=== PATIENT | female | born 1960 | race Caucasian/White ===

== ENCOUNTER → 2016-06-16 | Outpatient (CLI) | payer BC ==
[2016-06-16 15:05] LABS: CHLORIDE,CL 101 mmol/L (98-110); SODIUM,NA 140 mmol/L (136-146)
--- NOTE | 2016-06-16 16:05 | MY ---
EXAMINATION: Bilateral digital mammography utilizing CAD. HISTORY: Screening exam. Comparison is made to previous studies dated 04/12/2015, 11/17/2013, 2012 . FINDINGS: Bilateral heterogeneously dense breast tissue. Stable calcifications noted bilaterally. No suspicious calcifications, masses or architectural distortions. No pathologic appearing lymph no mg, no abnormal skin thickening or nipple inversion. CAD highlighted regions appear normal at this time. IMPRESSION: BI-RADS category II - Benign finding. Continued screening according to ACR-ACS guidelin es suggested. THE FALSE-NEGATIVE RATE OF MAMMOGRAM IS APPROXIMATELY 10%. MANAGEMENT OF A PALPABLE ABNORMALITY MUST BE BASED UPON CLINICAL GROUNDS. SENSITIVITY FOR DETECTION OF ABNORMALITIES IN DENSE BREASTS IS LOW. NOTE: A letter will be sent to the patient regarding findings. [facility] -- MARYSOL Lafleur [phone] - FAX [phone]
== END ==
LOC: MW.MAM 14:02
PROVIDERS: ATTEND Physician Assistant
DX: Z12.31 Encounter for screening mammogram for malignant neoplasm of breast (principal); Z13.220 Encounter for screening for lipoid disorders; E03.9 Hypothyroidism, unspecified; Z79.899 Other long term (current) drug therapy
CPT/HCPCS: 80053; 80061; 84439; 84443; G0202

== ENCOUNTER 2018-04-01 10:13 | Inpatient (IN) | payer BC, MEDICARE ==
--- NOTE | 2018-04-01 10:52 | EDM.PDOC ---
ED HPI GENERAL MEDICAL PROBLEM - General Chief Complaint: Respiratory Problem Stated Complaint: TROUBLE BREATHING Time Seen by Provider: 04/01/18 10:39 Source of Information: Reports: Patient History Limitations: Reports: No Limitations - History of Present Illness INITIAL COMMENTS - FREE TEXT/NARRATIVE: HISTORY AND PHYSICAL: History of present illness: Patient is a 57-year-old female who presents to the emergency room with complaints of chest pain, cough and shortness of breath 8 days. Patient does have a history of COPD and is concerned that she may have a pneumonia. Patient does have increased shortness of breath, more than her usual with her underlying lung disease. Describes the chest pain as a generalized tightness across her chest when asked to take in a deep breath. She denies any fever, chills, abdominal pain, nausea, vomiting, diarrhea or constipation. She has been eating and drinking appropriately. Patient was a previous tobacco user, smoked for 43 years. Review of systems: As per history of present illness and below otherwise all systems reviewed and negative. Past medical history: As per history of present illness and as reviewed below otherwise noncontributory. Surgical history: As per history of present illness and as reviewed below otherwise noncontributory. Social history: See social history for further information Family history: As per history of present illness and as reviewed below otherwise noncontributory. Physical exam: General: Well-developed and well-nourished 57-year-old female. Alert and oriented. Nontoxic appearing and in no acute distress. HEENT: Atraumatic, normocephalic, pupils equal and reactive bilaterally, negative for conjunctival pallor or scleral icterus, mucous membranes moist, TMs normal bilaterally, throat clear, neck supple, nontender, trachea midline. No drooling or trismus noted. No meningeal signs. No hot potato voice noted. Lungs: Fine expiratory wheezing noted throughout, rhonchi noted, chest nontender. Heart: S1S2, regular rate and rhythm without overt murmur Abdomen: Soft, nondistended, nontender. Negative for masses or hepatosplenomegaly. Negative for costovertebral tenderness. Pelvis: Stable nontender. Genitourinary: Deferred. Rectal: Deferred. Skin: Intact, warm, dry. No lesions or rashes noted. Extremities: Atraumatic, moves all extremities per self, trace edema to bilaterally lower extremities, negative for cords or calf pain. Neurovascular unremarkable. Neuro: Awake, alert, oriented. Cranial nerves II through XII unremarkable. Cerebellum unremarkable. Motor and sensory unremarkable throughout. Exam nonfocal. Notes: Patient is not routinely on oxygen at home. Today's oxygen saturation during triage was 81-83% on room air. She bumped to 92% on 4 L per nasal cannula. Lab work is unremarkable. Due to the patient's continuous tachycardia and shortness of breath I'm going to do a CT of her chest to rule out PE. Dr. Fan was consulted on this case and he is agreeable to keeping this patient for observation admission. Patient is aware and agreeable. Her saturation is 91% on 3 L per nasal cannula. Other vital signs are stable. CT of the chest shows scattered reticular nodule opacities within the lungs bilaterally, etiology is uncertain, this could represent a developing atypical infectious process. Neoplastic process is not excluded and short-term follow-up after treatment may be beneficial. No PE identified. Mild pulmonary emphysema noted. Diagnostics: CBC, CMP, troponin, BNP, EKG, chest x-ray Therapeutics: Solu-Medrol, Tor Jewell Impression: Hypoxia COPD exacerbation Plan: Observation Admission to Med/Surg per Mita Definitive disposition and diagnosis as appropriate pending reevaluation and review of above. 0 Pain Score (Numeric/FACES): 0 - Related Data Allergies Allergy/AdvReac Type Severity Reaction Status Date / Time Sulfa (Sulfonamide Allergy Rash Verified 04/01/18 10:45 Antibiotics) Home Meds: Home Meds Calcium Carbonate [Calcium] 1 tab PO BID 04/01/18 [History] Divalproex Sodium [Depakote] 500 mg PO TID 04/01/18 [History] Escitalopram [Lexapro] 20 mg PO DAILY 04/01/18 [History] Fluticasone Furoate [Arnuity Ellipta] 1 puff INH DAILY 04/01/18 [History] Levothyroxine Sodium [Levoxyl] 75 mcg PO ACBREAKFAST 04/01/18 [History] Multivitamins [Tab-A-Macho] 1 tab PO DAILY 04/01/18 [History] Umeclidinium Brm/Vilanterol Tr [Anoro Ellipta 62.5-25 MCG] 1 puff INH DAILY [History] ED ROS GENERAL - Review of Systems Review Of Systems: ROS reveals no pertinent complaints other than HPI. ED EXAM, GENERAL - Physical Exam Exam: See Below (See dictation) Course - Vital Signs Last Recorded V/S: Last Vital Signs Temp 97.9 F 04/03/18 12:00 Pulse 88 04/03/18 12:00 Resp 20 04/03/18 12:00 BP 112/69 04/03/18 12:00 Pulse Ox 91 L 04/03/18 12:00 - Orders/Labs/Meds Orders: Medication Orders Acetaminophen (Tylenol) 650 mg PO Q4H PRN PRN Reason: Pain (Mild 1-3)/fever Last Admin: 04/03/18 02:10 Dose: 650 mg Albuterol/Ipratropium (Duoneb 3.0-0.5 Mg/3 Ml) 3 ml NEB Q4HRRT [facility] Last Admin: 04/03/18 13:57 Dose: 3 ml Admin: 04/03/18 10:00 Dose: 3 ml Admin: 04/03/18 05:53 Dose: Not Given Admin: 04/03/18 02:06 Dose: 3 ml Admin: 04/02/18 21:29 Dose: 3 ml Admin: 04/02/18 17:36 Dose: 3 ml Admin: 04/02/18 14:39 Dose: 3 ml Admin: 04/02/18 09:52 Dose: 3 ml Admin: 04/02/18 06:06 Dose: 3 ml Admin: 04/02/18 02:20 Dose: 3 ml Admin: 04/01/18 22:03 Dose: 3 ml Admin: 04/01/18 18:11 Dose: 3 ml Admin: 04/01/18 14:21 Dose: 3 ml Divalproex Sodium (Depakote) 500 mg PO 0800,1400,2200 [facility] Last Admin: 04/03/18 09:11 Dose: Admin: 04/02/18 22:40 Dose: 500 mg Admin: 04/02/18 14:21 Dose: 500 mg Admin: 04/02/18 08:18 Dose: 500 mg Enoxaparin Sodium (Lovenox) 40 mg SUBCUT Q24H [facility] Last Admin: 04/02/18 18:07 Dose: Not Given Admin: 04/01/18 16:40 Dose: Not Given Escitalopram Oxalate (Lexapro) 20 mg PO DAILY [facility] Last Admin: 04/03/18 09:10 Dose: 20 mg Admin: 04/02/18 08:16 Dose: 20 mg Azithromycin 500 mg/ Sodium (Chloride) 250 mls @ 250 mls/hr IV Q24H [facility] Last Admin: 04/02/18 16:56 Dose: 250 mls/hr Infusion: 04/01/18 17:36 Dose: 250 mls/hr Admin: 04/01/18 16:36 Dose: 250 mls/hr Ceftriaxone Sodium/Dextrose 1 (gm/ Premix) 50 mls @ 100 mls/hr IV Q24H [facility] Last Admin: 04/02/18 18:21 Dose: 100 mls/hr Levothyroxine Sodium (Levothyroxine) 75 mcg PO ACBREAKFAST [facility] Last Admin: 04/03/18 06:35 Dose: 75 mcg Admin: 04/02/18 08:15 Dose: 75 mcg Methylprednisolone Sodium Succinate (Solu-Medrol) 125 mg IVPUSH Q6H [facility] Last Admin: 04/03/18 12:55 Dose: 125 mg Admin: 04/03/18 06:36 Dose: 125 mg Admin: 04/02/18 22:41 Dose: 125 mg Admin: 04/02/18 16:56 Dose: 125 mg Admin: 04/02/18 11:15 Dose: 125 mg Admin: 04/02/18 05:55 Dose: 125 mg Admin: 04/01/18 23:30 Dose: 125 mg Admin: 04/01/18 18:47 Dose: 125 mg Ondansetron HCl (Zofran) 4 mg IVPUSH Q4H PRN PRN Reason: Nausea/Vomiting Fluticasone Furoate [Arnuity Ellipta] 1 Puff 1 each INH DAILY [facility] Last Admin: 04/03/18 10:00 Dose: 1 each Admin: 04/02/18 09:53 Dose: 1 each Umeclidinium Brm/ (Vilanterol Tr 1 Puff) 1 each INH DAILY [facility] Last Admin: 04/03/18 10:00 Dose: 1 each Admin: 04/02/18 09:53 Dose: 1 each Polyethylene Glycol (Miralax) 17 gm PO DAILY [facility] Last Admin: 04/03/18 09:16 Dose: Not Given Admin: 04/02/18 11:15 Dose: 17 gm Sodium Chloride (Saline Flush) 10 ml FLUSH ASDIRECTED PRN PRN Reason: Keep Vein Open Last Admin: 04/01/18 11:14 Dose: 10 ml Sodium Chloride (Saline Flush) 2.5 ml FLUSH ASDIRECTED PRN PRN Reason: Keep Vein Open Last Admin: 04/01/18 11:13 Dose: 2.5 ml Sodium Chloride (Saline Flush) 10 ml FLUSH ASDIRECTED PRN PRN Reason: Keep Vein Open Sodium Chloride (Saline Flush) 2.5 ml FLUSH ASDIRECTED PRN PRN Reason: Keep Vein Open Labs: Laboratory Tests 04/01/18 04/01/18 04/01/18 Range/Units 11:06 11:06 11:06 WBC 8.05 (4.0-11.0) K/uL RBC 5.08 (4.30-5.90) M/uL Hgb 16.8 H (12.0-16.0) g/dL Hct 50.1 H (36.0-46.0) % MCV 98.6 H (80.0-98.0) fL MCH 33.1 H (27.0-32.0) pg MCHC 33.5 (31.0-37.0) g/dL RDW Std Deviation 48.8 (28.0-62.0) fl RDW Coeff of Drew 14 (11.0-15.0) % Plt Count 71 L (150-400) K/uL MPV 10.90 (7.40-12.00) fL Add Manual Diff YES Neutrophils % (Manual) 54 (48.0-80.0) % Band Neutrophils % 26 % Lymphocytes % (Manual) 14 L (16.0-40.0) % Monocytes % (Manual) 6 (0.0-15.0) % Nucleated RBC % 0.0 /100WBC Absolute Seg Neuts 4.3 (1.4-5.7) Band Neutrophils # 2.1 Lymphocytes # (Manual) 1.1 (0.6-2.4) Monocytes # (Manual) 0.5 (0.0-0.8) Nucleated RBCs # 0 K/uL D-Dimer, Quantitative (0.0-0.50) mg/L FEU Sodium 133 L (136-145) mmol/L Potassium 3.6 (3.5-5.1) mmol/L Chloride 96 L (98-107) mmol/L Carbon Dioxide 30.8 (21.0-32.0) mmol/L BUN 17 (7.0-18.0) mg/dL Creatinine 0.9 (0.6-1.0) mg/dL Est Cr Clr Drug Dosing 64.56 mL/min Estimated GFR (MDRD) > 60.0 ml/min Glucose 112 H (74-106) mg/dL Calcium 9.1 (8.5-10.1) mg/dL Total Bilirubin 0.6 (0.2-1.0) mg/dL AST 29 (15-37) IU/L ALT 16 (14-63) IU/L Alkaline Phosphatase 56 (46-116) U/L Troponin I (0.000-0.056) ng/mL B-Natriuretic Peptide 20 (<100) PG/ML Total Protein 6.7 (6.4-8.2) g/dL Albumin 3.0 L (3.4-5.0) g/dL Globulin 3.7 (2.6-4.0) g/dL Albumin/Globulin Ratio 0.8 L (0.9-1.6) 04/01/18 04/01/18 Range/Units 11:06 11:06 WBC (4.0-11.0) K/uL RBC (4.30-5.90) M/uL Hgb (12.0-16.0) g/dL Hct (36.0-46.0) % MCV (80.0-98.0) fL MCH (27.0-32.0) pg MCHC (31.0-37.0) g/dL RDW Std Deviation (28.0-62.0) fl RDW Coeff of Drew (11.0-15.0) % Plt Count (150-400) K/uL MPV (7.40-12.00) fL Add Manual Diff Neutrophils % (Manual) (48.0-80.0) % Band Neutrophils % % Lymphocytes % (Manual) (16.0-40.0) % Monocytes % (Manual) (0.0-15.0) % Nucleated RBC % /100WBC Absolute Seg Neuts (1.4-5.7) Band Neutrophils # Lymphocytes # (Manual) (0.6-2.4) Monocytes # (Manual) (0.0-0.8) Nucleated RBCs # K/uL D-Dimer, Quantitative 0.42 (0.0-0.50) mg/L FEU Sodium (136-145) mmol/L Potassium (3.5-5.1) mmol/L Chloride (98-107) mmol/L Carbon Dioxide (21.0-32.0) mmol/L BUN (7.0-18.0) mg/dL Creatinine (0.6-1.0) mg/dL Est Cr Clr Drug Dosing mL/min Estimated GFR (MDRD) ml/min Glucose (74-106) mg/dL Calcium (8.5-10.1) mg/dL Total Bilirubin (0.2-1.0) mg/dL AST (15-37) IU/L ALT (14-63) IU/L Alkaline Phosphatase (46-116) U/L Troponin I < 0.050 (0.000-0.056) ng/mL B-Natriuretic Peptide (<100) PG/ML Total Protein (6.4-8.2) g/dL Albumin (3.4-5.0) g/dL Globulin (2.6-4.0) g/dL Albumin/Globulin Ratio (0.9-1.6) Meds: Medications Generic Name Dose Route Start Last Admin Trade Name Freq PRN Reason Stop Dose Admin Acetaminophen 650 mg 04/01/18 12:54 04/03/18 02:10 Tylenol PO 650 mg Q4H PRN Administration Pain (Mild 1-3)/fever Albuterol/Ipratropium 3 ml 04/01/18 14:00 04/03/18 13:57 Duoneb 3.0-0.5 Mg/3 Ml NEB 3 ml Q4HRRT RADHA Administration Divalproex Sodium 500 mg 04/02/18 08:00 04/03/18 09:11 Depakote PO Not Given 0800,1400,2200 RAD[facility] Enoxaparin Sodium 40 mg 04/01/18 16:30 04/02/18 18:07 Lovenox SUBCUT Not Given Q24H [facility] Escitalopram Oxalate 20 mg 04/02/18 09:00 04/03/18 09:10 Lexapro PO 20 mg DAILY RAD[facility] Administration Azithromycin 500 mg/ Sodium 250 mls @ 250 mls/hr 04/01/18 16:30 04/02/18 16: 56 Chloride IV 250 mls/hr Q24H [facility] Administration Ceftriaxone Sodium/Dextrose 1 50 mls @ 100 mls/hr 04/02/18 18:30 04/02/18 18: 21 gm/ Premix IV 100 mls/hr Q24H [facility] Administration Levothyroxine Sodium 75 mcg 04/02/18 08:00 04/03/18 06:35 Levothyroxine PO 75 mcg ACBREAKFAST [facility] Administration Methylprednisolone Sodium Succinate 125 mg 04/01/18 17:30 04/03/18 12:55 Solu-Medrol IVPUSH 125 mg Q6H [facility] Administration Ondansetron HCl 4 mg 04/01/18 12:54 Zofran IVPUSH Q4H PRN Nausea/Vomiting Fluticasone Furoate 1 each 04/02/18 09:00 04/03/18 10:00 [Arnuity Ellipta] 1 INH 1 each Puff DAILY [facility] Administration Umeclidinium Brm/ 1 each 04/02/18 09:00 04/03/18 10:00 Vilanterol Tr 1 Puff INH 1 each DAILY [facility] Administration Polyethylene Glycol 17 gm 04/02/18 11:15 04/03/18 09:16 Miralax PO Not Given DAILY [facility] Sodium Chloride 10 ml 04/01/18 10:57 04/01/18 11:14 Saline Flush FLUSH 10 ml ASDIRECTED PRN Administration Keep Vein Open Sodium Chloride 2.5 ml 04/01/18 10:57 04/01/18 11:13 Saline Flush FLUSH 2.5 ml ASDIRECTED PRN Administration Keep Vein Open Sodium Chloride 10 ml 04/01/18 12:54 Saline Flush FLUSH ASDIRECTED PRN Keep Vein Open Sodium Chloride 2.5 ml 04/01/18 12:54 Saline Flush FLUSH ASDIRECTED PRN Keep Vein Open Discontinued Medications Generic Name Dose Route Start Last Admin Trade Name Freq PRN Reason Stop Dose Admin Albuterol/Ipratropium 3 ml 04/01/18 10:53 04/01/18 11:13 Duoneb 3.0-0.5 Mg/3 Ml NEB 04/01/18 10:54 3 ml ONETIME ONE Administration Albuterol/Ipratropium 3 ml 04/01/18 11:23 04/01/18 11:29 Duoneb 3.0-0.5 Mg/3 Ml NEB 04/01/18 11:24 3 ml ONETIME ONE Administration Aspirin 324 mg 04/01/18 11:21 04/01/18 11:53 Aspirin PO 04/01/18 11:22 324 mg ONETIME ONE Administration Divalproex Sodium 250 mg 04/01/18 14:00 04/01/18 16:35 Divalproex Sodium PO Not Given TID RADHA Divalproex Sodium 500 mg 04/01/18 16:30 04/01/18 16:50 Depakote PO 04/01/18 16:31 Not Given 04/01/18@1630 RAD[facility] Divalproex Sodium 500 mg 04/01/18 16:45 04/01/18 16:51 Depakote PO 04/01/18 16:46 500 mg ONETIME ONE Administration Divalproex Sodium Confirm 04/01/18 22:10 04/01/18 22:25 Depakote Er Administered 04/01/18 22:11 Not Given Dose 500 mg .ROUTE .STK-MED ONE Enoxaparin Sodium 40 mg 04/01/18 13:00 04/01/18 16:34 Lovenox SUBCUT Not Given Q24H [facility] Azithromycin 500 mg/ Sodium 250 mls @ 250 mls/hr 04/01/18 13:00 04/01/18 16: 34 Chloride IV Not Given Q24H [facility] Azithromycin 500 mg/ Sodium 250 mls @ 250 mls/hr 04/01/18 16:30 Chloride IV Q24H [facility] Ceftriaxone Sodium 1 gm/ 50 mls @ 100 mls/hr 04/01/18 18:30 04/01/18 19:03 Sodium Chloride IV 100 mls/hr Q24H [facility] Administration Ceftriaxone Sodium/Dextrose Confirm 04/01/18 18:47 04/01/18 19:35 Rocephin In Dextrose,Iso-Osm 1 Gm/50 Ml Administered 04/01/18 18:48 Not Given Dose 50 mls @ as directed .ROUTE .STK-MED ONE Iopamidol 50 ml 04/01/18 13:22 04/01/18 13:23 Isovue Multipack-370 (76%) IVPUSH 04/01/18 13:23 50 ml ONETIME STA Administration Methylprednisolone Sodium Succinate 125 mg 04/01/18 10:57 04/01/18 11:13 Solu-Medrol IVPUSH 04/01/18 10:58 125 mg ONETIME ONE Administration Methylprednisolone Sodium Succinate 125 mg 04/01/18 13:00 04/01/18 15:44 Solu-Medrol IVPUSH Not Given Q6H [facility] Morphine Sulfate 2 mg 04/01/18 12:54 Morphine IVPUSH 04/02/18 12:55 Q2H PRN Pain (severe 7-10) Morphine Sulfate 2 mg 04/02/18 07:22 Morphine IVPUSH 04/02/18 12:55 Q2H PRN Pain (severe 7-10) Levothyroxine 75 Mcg 1 each 04/02/18 07:30 04/02/18 09:25 PO Not Given ACBREAKFAST [facility] Divalproex Sodium 1 each 04/01/18 22:00 04/01/18 22:23 Delayed-Release 500 PO 1 each Mg Tab.Cr 0800,1400,2200 RAD[facility] Administration Departure - Departure Time of Disposition: 14:18 Disposition: Refer to Observation Clinical Impression: Hypoxia, COPD exacerbation - Discharge Information
[2018-04-01] MEDS ORDERED: Albuterol/Ipratropium 3.0-0.5 MG/3 ML Neb Soln NEB ONE ×2 (10:53→11:23)
[2018-04-01] MEDS ORDERED: Sodium Chloride 0.9% 10 ML Syringe FLUSH PRN ×2 (10:57→12:54)
[2018-04-01] MEDS ORDERED: Sodium Chloride 0.9% 2.5 ML Syringe FLUSH PRN ×2 (10:57→12:54)
[2018-04-01] MEDS ORDERED: methylPREDNISolone Sodium Succinate 125 MG/2 ML SDV IVPUSH ONE (10:57)
[2018-04-01] MEDS ORDERED: Aspirin 81 MG Tab.Chew PO ONE (11:21)
[2018-04-01 11:53] LABS: CHLORIDE,CL 96 mmol/L (98-107); SODIUM,NA 133 mmol/L (136-145)
--- NOTE | 2018-04-01 12:08 | CR ---
EXAMINATION: Portable chest radiograph. HISTORY: Shortness of breath. Comparison: 12/17/2017. FINDINGS: The trachea is midline. The cardiomediastinal silhouette is within normal limits. No pulmonary infiltrates, effusions or pneumothorax. Mild interstitial prominence. Osseous structures appear unremarkable. IMPRESSION: No acute cardiopulmonary process.
[2018-04-01] MEDS ORDERED: Ondansetron 4 MG/2 ML SDV IVPUSH PRN (12:54)
[2018-04-01] MEDS ORDERED: Morphine 10 MG/ML Syringe IVPUSH PRN (12:54)
[2018-04-01] MEDS ORDERED: Azithromycin 500 MG in Sodium Chloride 0.9% 250 ML IV SCH ×2 (13:00→16:30)
[2018-04-01] MEDS ORDERED: Enoxaparin 40 MG/0.4 ML Syringe SUBCUT SCH (13:00)
[2018-04-01] MEDS ORDERED: methylPREDNISolone Sodium Succinate 125 MG/2 ML SDV IVPUSH SCH (13:00)
--- NOTE | 2018-04-01 13:04 | PCM.HP ---
H&P History of Present Illness - General Date of Service: 04/01/18 Admit Problem/Dx: Admission Diagnosis/Problem Admission Diagnosis/Problem Hypoxia - History of Present Illness Initial Comments - Free Text/Narative: This is a 57-year-old female with a known history of COPD that is being admitted for an acute exacerbation of her COPD. Patient states that she has been feeling unwell for the past 10 days and progressively having increased shortness of breath cough and hypoxia. Patient is a smoker who is currently not on any home O2, despite her long acting inhalers the patient did not get better and came into the ER for further assessment. ER was concern for possible pulmonary embolism due to her hypoxia and has gotten a CT angiogram results are pending. - Related Data Allergies/Adverse Reactions: Allergies Allergy/AdvReac Type Severity Reaction Status Date / Time Sulfa (Sulfonamide Allergy Rash Verified 04/01/18 10:45 Antibiotics) Home Medications: Home Meds Calcium Carbonate [Calcium] 1 tab PO BID 04/01/18 [History] Divalproex Sodium [Depakote] 500 mg PO TID 04/01/18 [History] Escitalopram [Lexapro] 20 mg PO DAILY 04/01/18 [History] Fluticasone Furoate [Arnuity Ellipta] 1 puff INH DAILY 04/01/18 [History] Levothyroxine Sodium [Levoxyl] 75 mcg PO ACBREAKFAST 04/01/18 [History] Multivitamins [Tab-A-Macho] 1 tab PO DAILY 04/01/18 [History] Umeclidinium Brm/Vilanterol Tr [Anoro Ellipta 62.5-25 MCG] 1 puff INH DAILY [History] Past Medical History HEENT History: Reports: None Cardiovascular History: Reports: None Respiratory History: Reports: COPD Gastrointestinal History: Reports: None Genitourinary History: Reports: None SEE WHEELER History: Reports: None Musculoskeletal History: Reports: Fracture Other Musculoskeletal History: ribs Neurological History: Reports: Seizure Psychiatric History: Reports: None Endocrine/Metabolic History: Reports: None Hematologic History: Reports: None Immunologic History: Reports: None Oncologic (Cancer) History: Reports: None Dermatologic History: Reports: None - Infectious Disease History Infectious Disease History: Reports: None - Past Surgical History Head Surgeries/Procedures: Reports: None Social & Family History - Family History Family Medical History: Noncontributory - Tobacco Use Smoking Status *Q: Former Smoker Years of Tobacco use: 43 Packs/Tins Daily: 2 Used Tobacco, but Quit: Yes Month/Year Tobacco Last Used: 5 days ago - Caffeine Use Caffeine Use: Reports: Coffee - Recreational Drug Use Recreational Drug Use: No H&P Review of Systems - Review of Systems: Review Of Systems: ROS reveals no pertinent complaints other than HPI. Exam - Exam Exam: See Below - Vital Signs Vital Signs: Last Vital Signs Temp 37.1 C 04/01/18 10:48 Pulse 120 H 04/01/18 11:54 Resp 20 04/01/18 11:54 BP 123/77 04/01/18 11:54 Pulse Ox 94 L 04/01/18 11:54 Weight: 61.235 kg - Exam Quality Assessment: Supplemental Oxygen General: Alert, Oriented, Cooperative HEENT: Conjunctiva Clear Neck: Supple Lungs: Decreased Breath Sounds Cardiovascular: Regular Rate, Regular Rhythm GI/Abdominal Exam: Normal Bowel Sounds Extremities: Normal Inspection, Normal Range of Motion - Patient Data Lab Results Last 24 hrs: Laboratory Results - last 24 hr 04/01/18 04/01/18 04/01/18 Range/Units 11:06 11:06 11:06 WBC 8.05 (4.0-11.0) K/uL RBC 5.08 (4.30-5.90) M/uL Hgb 16.8 H (12.0-16.0) g/dL Hct 50.1 H (36.0-46.0) % MCV 98.6 H (80.0-98.0) fL MCH 33.1 H (27.0-32.0) pg MCHC 33.5 (31.0-37.0) g/dL RDW Std Deviation 48.8 (28.0-62.0) fl RDW Coeff of Drew 14 (11.0-15.0) % Plt Count 71 L (150-400) K/uL MPV 10.90 (7.40-12.00) fL Add Manual Diff YES Neutrophils % (Manual) 54 (48.0-80.0) % Band Neutrophils % 26 % Lymphocytes % (Manual) 14 L (16.0-40.0) % Monocytes % (Manual) 6 (0.0-15.0) % Nucleated RBC % 0.0 /100WBC Absolute Seg Neuts 4.3 (1.4-5.7) Band Neutrophils # 2.1 Lymphocytes # (Manual) 1.1 (0.6-2.4) Monocytes # (Manual) 0.5 (0.0-0.8) Nucleated RBCs # 0 K/uL D-Dimer, Quantitative (0.0-0.50) mg/L FEU Sodium 133 L (136-145) mmol/L Potassium 3.6 (3.5-5.1) mmol/L Chloride 96 L (98-107) mmol/L Carbon Dioxide 30.8 (21.0-32.0) mmol/L BUN 17 (7.0-18.0) mg/dL Creatinine 0.9 (0.6-1.0) mg/dL Est Cr Clr Drug Dosing 64.56 mL/min Estimated GFR (MDRD) > 60.0 ml/min Glucose 112 H (74-106) mg/dL Calcium 9.1 (8.5-10.1) mg/dL Total Bilirubin 0.6 (0.2-1.0) mg/dL AST 29 (15-37) IU/L ALT 16 (14-63) IU/L Alkaline Phosphatase 56 (46-116) U/L Troponin I (0.000-0.056) ng/mL B-Natriuretic Peptide 20 (<100) PG/ML Total Protein 6.7 (6.4-8.2) g/dL Albumin 3.0 L (3.4-5.0) g/dL Globulin 3.7 (2.6-4.0) g/dL Albumin/Globulin Ratio 0.8 L (0.9-1.6) 04/01/18 04/01/18 Range/Units 11:06 11:06 WBC (4.0-11.0) K/uL RBC (4.30-5.90) M/uL Hgb (12.0-16.0) g/dL Hct (36.0-46.0) % MCV (80.0-98.0) fL MCH (27.0-32.0) pg MCHC (31.0-37.0) g/dL RDW Std Deviation (28.0-62.0) fl RDW Coeff of Drew (11.0-15.0) % Plt Count (150-400) K/uL MPV (7.40-12.00) fL Add Manual Diff Neutrophils % (Manual) (48.0-80.0) % Band Neutrophils % % Lymphocytes % (Manual) (16.0-40.0) % Monocytes % (Manual) (0.0-15.0) % Nucleated RBC % /100WBC Absolute Seg Neuts (1.4-5.7) Band Neutrophils # Lymphocytes # (Manual) (0.6-2.4) Monocytes # (Manual) (0.0-0.8) Nucleated RBCs # K/uL D-Dimer, Quantitative 0.42 (0.0-0.50) mg/L FEU Sodium (136-145) mmol/L Potassium (3.5-5.1) mmol/L Chloride (98-107) mmol/L Carbon Dioxide (21.0-32.0) mmol/L BUN (7.0-18.0) mg/dL Creatinine (0.6-1.0) mg/dL Est Cr Clr Drug Dosing mL/min Estimated GFR (MDRD) ml/min Glucose (74-106) mg/dL Calcium (8.5-10.1) mg/dL Total Bilirubin (0.2-1.0) mg/dL AST (15-37) IU/L ALT (14-63) IU/L Alkaline Phosphatase (46-116) U/L Troponin I < 0.050 (0.000-0.056) ng/mL B-Natriuretic Peptide (<100) PG/ML Total Protein (6.4-8.2) g/dL Albumin (3.4-5.0) g/dL Globulin (2.6-4.0) g/dL Albumin/Globulin Ratio (0.9-1.6) Result Diagrams: 04/01/18 11:06 04/01/18 11:06 Problem List Initiated/Reviewed/Updated: Yes Orders Last 24hrs: Active Orders 24 hr Category Date Time Status Admission Status [Patient Status] [ADT] Stat ADT 04/01/18 12:14 Active Antiembolic Devices [RC] PER UNIT ROUTINE Care 04/01/18 12:58 Ordered EKG Documentation Completion [RC] STAT Care 04/01/18 10:53 Active Height and Weight [RC] UPON Care 04/01/18 12:54 Ordered Intake and Output [RC] QSHIFT Care 04/01/18 12:55 Ordered Oxygen Therapy [RC] PRN Care 04/01/18 12:55 Ordered Pulse Oximetry [RC] PRN Care 04/01/18 12:55 Ordered RT Aerosol Therapy [RC] ASDIRECTED Care 04/01/18 10:53 Active RT Aerosol Therapy [RC] ASDIRECTED Care 04/01/18 11:23 Active RT Aerosol Therapy [RC] ASDIRECTED Care 04/01/18 12:58 Ordered Up With Assistance [RC] ASDIRECTED Care 04/01/18 12:54 Ordered VTE/DVT Education [RC] PER UNIT ROUTINE Care 04/01/18 12:55 Ordered Vital Signs [RC] Q4H Care 04/01/18 12:55 Ordered Respiratory Care Assess and Treatment [CONS] Routine Cons 04/01/18 12:54 Ordered Heart Healthy Diet [DIET] Diet 04/01/18 Breakfast Ordered Chest PE [Ang Chest] [CT] Stat Exams 04/01/18 12:25 Ordered CBC WITH AUTO DIFF [HEME] AM Lab 04/02/18 05:11 Ordered COMPREHENSIVE METABOLIC PN,CMP [CHEM] AM Lab 04/02/18 05:11 Ordered CULTURE SPUTUM + SMEAR [RM] Stat Lab 04/01/18 13:00 Ordered Acetaminophen [Tylenol] Med 04/01/18 12:54 Ordered 650 mg PO Q4H PRN Albuterol/Ipratropium [DuoNeb 3.0-0.5 MG/3 ML] Med 04/01/18 14:00 Ordered 3 ml NEB Q4HRRT Azithromycin [Zithromax] 500 mg Med 04/01/18 13:00 Ordered Sodium Chloride 0.9% [Normal Saline] 250 ml IV Q24H Divalproex Sodium Med 04/01/18 14:00 Ordered 250 mg PO TID Enoxaparin [Lovenox] Med 04/01/18 13:00 Ordered 40 mg SUBCUT Q24H Levothyroxine Med 04/02/18 09:00 Ordered 125 mcg PO DAILY Morphine Med 04/01/18 12:54 Ordered 2 mg IVPUSH Q2H PRN Ondansetron [Zofran] Med 04/01/18 12:54 Ordered 4 mg IVPUSH Q4H PRN Sodium Chloride 0.9% [Saline Flush] Med 04/01/18 10:57 Active 10 ml FLUSH ASDIRECTED PRN Sodium Chloride 0.9% [Saline Flush] Med 04/01/18 12:54 Ordered 10 ml FLUSH ASDIRECTED PRN Sodium Chloride 0.9% [Saline Flush] Med 04/01/18 10:57 Active 2.5 ml FLUSH ASDIRECTED PRN Sodium Chloride 0.9% [Saline Flush] Med 04/01/18 12:54 Ordered 2.5 ml FLUSH ASDIRECTED PRN methylPREDNISolone Sod Succ [Solu-MEDROL] Med 04/01/18 13:00 Ordered 125 mg IVPUSH Q6H Peripheral IV Insertion Adult [OM.PC] Routine Oth 04/01/18 12:54 Ordered Saline Lock Insert [OM.PC] Routine Oth 04/01/18 12:54 Ordered Saline Lock Insert [OM.PC] Stat Ot 04/01/18 10:57 Ordered Sequential Compression Device [OM.PC] Per Unit Routine Ot 04/01/18 12:55 Ordered Medication Orders Acetaminophen (Tylenol) 650 mg PO Q4H PRN PRN Reason: Pain (Mild 1-3)/fever Albuterol/Ipratropium (Duoneb 3.0-0.5 Mg/3 Ml) 3 ml NEB Q4HRRT [facility] Divalproex Sodium (Divalproex Sodium) 250 mg PO TID [facility] Enoxaparin Sodium (Lovenox) 40 mg SUBCUT Q24H [facility] Azithromycin 500 mg/ Sodium (Chloride) 250 mls @ 250 mls/hr IV Q24H [facility] Levothyroxine Sodium (Levothyroxine) 125 mcg PO DAILY [facility] Methylprednisolone Sodium Succinate (Solu-Medrol) 125 mg IVPUSH Q6H [facility] Morphine Sulfate (Morphine) 2 mg IVPUSH Q2H PRN PRN Reason: Pain (severe 7-10) Stop: 04/02/18 12:55 Ondansetron HCl (Zofran) 4 mg IVPUSH Q4H PRN PRN Reason: Nausea/Vomiting Sodium Chloride (Saline Flush) 10 ml FLUSH ASDIRECTED PRN PRN Reason: Keep Vein Open Last Admin: 04/01/18 11:14 Dose: 10 ml Sodium Chloride (Saline Flush) 2.5 ml FLUSH ASDIRECTED PRN PRN Reason: Keep Vein Open Last Admin: 04/01/18 11:13 Dose: 2.5 ml Sodium Chloride (Saline Flush) 10 ml FLUSH ASDIRECTED PRN PRN Reason: Keep Vein Open Sodium Chloride (Saline Flush) 2.5 ml FLUSH ASDIRECTED PRN PRN Reason: Keep Vein Open Assessment/Plan Comment:: This is a 57-year-old female with a history of COPD being admitted due to tachypnea, hypoxia, tachycardia likely in the setting of acute COPD exacerbation. #1. Acute hypoxic respiratory failure secondary to acute exacerbation of COPD with possible community-acquired pneumonia infection -Patient placed on O2, Solu-Medrol, duo nebs scheduled, azithromycin for symptomatic management of her acute COPD exacerbation and possible community- acquired pneumonia infection -Sputum cultures have been ordered -Chest x-ray did not indicate an acute pulmonary process and the patient did not have an elevated leukocytosis, CT angiogram pending that was ordered in the ER secondary to possible concerns of pulmonary embolism. -Restart patient's home medications.
[2018-04-01] MEDS ORDERED: Iopamidol 755 MG/ML 500 ML Multipack Bottle IVPUSH STA (13:22)
--- NOTE | 2018-04-01 13:36 | CT ---
EXAMINATION: CTA chest HISTORY: Tachycardia COMPARISON: Chest radiograph from the same day TECHNIQUE: Axial CT imaging obtained through the chest following the administration of 50 mL of Isovue-370 in the right antecubital fossa. Coronal and sagittal reconstructions obtained. FINDINGS: There are reticular nodular opacities within the lungs bilaterally. These measure up to 5 mm within the left lung base. The left lingular atelectasis is noted. Mild emphysematous changes are also noted. There is a borderline 1.5 cm subcarinal lymph node. Mildly prominent bilateral hilar lymph nodes are noted measuring up to 1 cm. The heart is normal in size without pericardial effusion. The thoracic aorta is normal in caliber. The main and central pulmonary arteries are patent without evidence of a pulmonary embolism. Central airways are clear. No suspicious osseous abnormalities identified. IMPRESSION: Line 1. Scattered reticular nodular opacities within the lungs bilaterally, etiology is uncertain, this could represent a developing atypical infectious process. Neoplastic process is not excluded and short-term follow-up after treatment may be beneficial. 2. No pulmonary embolism identified. 2. Mild pulmonary emphysema.
[2018-04-01] MEDS ORDERED: Divalproex Sodium Delayed-Release 250 MG Tab.CR PO SCH (14:00)
[2018-04-01] MEDS: Albuterol/Ipratropium 3.0-0.5 MG/3 ML Neb Soln NEB SCH ×3 (14:21→22:03)
[2018-04-01] MEDS ORDERED: Divalproex Sodium Delayed-Release 500 MG Tab.CR PO SCH ×3 (16:30→22:00)
[2018-04-01] MEDS: Azithromycin 500 MG in Sodium Chloride 0.9% 250 ML IV SCH (16:36)
[2018-04-01] MEDS: Enoxaparin 40 MG/0.4 ML Syringe SUBCUT SCH (16:40)
[2018-04-01] MEDS ORDERED: Divalproex Sodium Delayed-Release 500 MG Tab.CR PO ONE (16:45)
[2018-04-01] MEDS ORDERED: cefTRIAXone 1 GM in Sodium Chloride 0.9% 50 ML IV SCH (18:30)
[2018-04-01] MEDS: methylPREDNISolone Sodium Succinate 125 MG/2 ML SDV IVPUSH SCH ×2 (18:47→23:30)
[2018-04-01] MEDS ORDERED: Divalproex Sodium 500 MG Tab.ER ONE (22:10)
[2018-04-02] MEDS: Albuterol/Ipratropium 3.0-0.5 MG/3 ML Neb Soln NEB SCH ×6 (02:20→21:29)
[2018-04-02] MEDS: methylPREDNISolone Sodium Succinate 125 MG/2 ML SDV IVPUSH SCH ×4 (05:55→22:41)
[2018-04-02 06:12] LABS: CHLORIDE,CL 97 mmol/L (98-107); SODIUM,NA 133 mmol/L (136-145)
[2018-04-02] MEDS ORDERED: Morphine 2 MG/ML Syringe IVPUSH PRN (07:22)
[2018-04-02] MEDS ORDERED: Levothyroxine 75 MCG Tab PO SCH (07:30)
[2018-04-02] MEDS ORDERED: LEVOTHYROXINE 75 MCG PO SCH (07:30)
[2018-04-02] MEDS: LEVOTHYROXINE 75 MCG PO SCH (08:15)
[2018-04-02] MEDS: Escitalopram 10 MG Tab PO SCH (08:16)
[2018-04-02] MEDS: Divalproex Sodium Delayed-Release 500 MG Tab.CR PO SCH ×3 (08:18→22:40)
[2018-04-02] MEDS: Umeclidinium Brm/Vilanterol Tr 1 PUFF INH SCH (09:53)
[2018-04-02] MEDS: Fluticasone Furoate [Arnuity Ellipta] 1 PUFF INH SCH (09:53)
[2018-04-02] MEDS: Polyethylene Glycol 3350 Powder 17 GM Packet PO SCH (11:15)
[2018-04-02] MEDS: Azithromycin 500 MG in Sodium Chloride 0.9% 250 ML IV SCH (16:56)
--- NOTE | 2018-04-02 17:00 | PCM.PN ---
- General Info Date of Service: 04/02/18 Subjective Update: Doing better, no sob currently still on O2 - Patient Data Vitals - Most Recent: Last Vital Signs Temp 36.6 C 04/02/18 15:00 Pulse 109 H 04/02/18 15:00 Resp 16 04/02/18 15:00 BP 112/60 04/02/18 15:00 Pulse Ox 92 L 04/02/18 15:00 Weight - Most Recent: 61.235 kg I&O - Last 24 Hours: Intake & Output 04/02/18 04/02/18 04/02/18 06:59 14:59 22:59 Intake Total 600 440 Balance 600 440 Lab Results Last 24 Hours: Laboratory Results - last 24 hr 04/02/18 04/02/18 Range/Units 04:57 04:57 WBC 5.76 (4.0-11.0) K/uL RBC 4.59 (4.30-5.90) M/uL Hgb 14.7 (12.0-16.0) g/dL Hct 43.9 (36.0-46.0) % MCV 95.6 (80.0-98.0) fL MCH 32.0 (27.0-32.0) pg MCHC 33.5 (31.0-37.0) g/dL RDW Std Deviation 46.1 (28.0-62.0) fl RDW Coeff of Drew 13 (11.0-15.0) % Plt Count 76 L (150-400) K/uL MPV 11.00 (7.40-12.00) fL Neut % (Auto) 84.7 H (48.0-80.0) % Lymph % (Auto) 10.6 L (16.0-40.0) % [place] % (Auto) 4.5 (0.0-15.0) % Eos % (Auto) 0.0 (0.0-7.0) % Baso % (Auto) 0.2 (0.0-1.5) % Neut # (Auto) 4.9 (1.4-5.7) K/uL Lymph # (Auto) 0.6 (0.6-2.4) K/uL [place] # (Auto) 0.3 (0.0-0.8) K/uL Eos # (Auto) 0.0 (0.0-0.7) K/uL Baso # (Auto) 0.0 (0.0-0.1) K/uL Nucleated RBC % 0.0 /100WBC Nucleated RBCs # 0 K/uL Sodium 133 L (136-145) mmol/L Potassium 3.6 (3.5-5.1) mmol/L Chloride 97 L (98-107) mmol/L Carbon Dioxide 30.2 (21.0-32.0) mmol/L BUN 18 (7.0-18.0) mg/dL Creatinine 0.7 (0.6-1.0) mg/dL Est Cr Clr Drug Dosing 83.01 mL/min Estimated GFR (MDRD) > 60.0 ml/min Glucose 207 H (74-106) mg/dL Calcium 8.2 L (8.5-10.1) mg/dL Total Bilirubin 0.2 (0.2-1.0) mg/dL AST 21 (15-37) IU/L ALT 11 L (14-63) IU/L Alkaline Phosphatase 47 (46-116) U/L Total Protein 5.9 L (6.4-8.2) g/dL Albumin 2.5 L (3.4-5.0) g/dL Globulin 3.4 (2.6-4.0) g/dL Albumin/Globulin Ratio 0.7 L (0.9-1.6) Chu Results Last 24 Hours: Microbiology 04/01/18 18:15 Gram Stain - Preliminary Sputum - Expectorated Med Orders - Current: Current Medications Acetaminophen (Tylenol) 650 mg PO Q4H PRN PRN Reason: Pain (Mild 1-3)/fever Albuterol/Ipratropium (Duoneb 3.0-0.5 Mg/3 Ml) 3 ml NEB Q4HRRT [facility] Last Admin: 04/02/18 14:39 Dose: 3 ml Divalproex Sodium (Depakote) 500 mg PO 0800,1400,2200 [facility] Last Admin: 04/02/18 14:21 Dose: 500 mg Enoxaparin Sodium (Lovenox) 40 mg SUBCUT Q24H [facility] Last Admin: 04/01/18 16:40 Dose: Not Given Escitalopram Oxalate (Lexapro) 20 mg PO DAILY [facility] Last Admin: 04/02/18 08:16 Dose: 20 mg Azithromycin 500 mg/ Sodium (Chloride) 250 mls @ 250 mls/hr IV Q24H [facility] Last Admin: 04/02/18 16:56 Dose: 250 mls/hr Ceftriaxone Sodium/Dextrose 1 (gm/ Premix) 50 mls @ 100 mls/hr IV Q24H [facility] Levothyroxine Sodium (Levothyroxine) 75 mcg PO ACBREAKFAST [facility] Last Admin: 04/02/18 08:15 Dose: 75 mcg Methylprednisolone Sodium Succinate (Solu-Medrol) 125 mg IVPUSH Q6H [facility] Last Admin: 04/02/18 16:56 Dose: 125 mg Ondansetron HCl (Zofran) 4 mg IVPUSH Q4H PRN PRN Reason: Nausea/Vomiting Fluticasone Furoate [Arnuity Ellipta] 1 Puff 1 each INH DAILY [facility] Last Admin: 04/02/18 09:53 Dose: 1 each Umeclidinium Brm/ (Vilanterol Tr 1 Puff) 1 each INH DAILY [facility] Last Admin: 04/02/18 09:53 Dose: 1 each Polyethylene Glycol (Miralax) 17 gm PO DAILY [facility] Last Admin: 04/02/18 11:15 Dose: 17 gm Sodium Chloride (Saline Flush) 10 ml FLUSH ASDIRECTED PRN PRN Reason: Keep Vein Open Last Admin: 04/01/18 11:14 Dose: 10 ml Sodium Chloride (Saline Flush) 2.5 ml FLUSH ASDIRECTED PRN PRN Reason: Keep Vein Open Last Admin: 04/01/18 11:13 Dose: 2.5 ml Sodium Chloride (Saline Flush) 10 ml FLUSH ASDIRECTED PRN PRN Reason: Keep Vein Open Sodium Chloride (Saline Flush) 2.5 ml FLUSH ASDIRECTED PRN PRN Reason: Keep Vein Open Discontinued Medications Albuterol/Ipratropium (Duoneb 3.0-0.5 Mg/3 Ml) 3 ml NEB ONETIME ONE Stop: 04/01/18 10:54 Last Admin: 04/01/18 11:13 Dose: 3 ml Albuterol/Ipratropium (Duoneb 3.0-0.5 Mg/3 Ml) 3 ml NEB ONETIME ONE Stop: 04/01/18 11:24 Last Admin: 04/01/18 11:29 Dose: 3 ml Aspirin (Aspirin) 324 mg PO ONETIME ONE Stop: 04/01/18 11:22 Last Admin: 04/01/18 11:53 Dose: 324 mg Divalproex Sodium (Divalproex Sodium) 250 mg PO TID [facility] Last Admin: 04/01/18 16:35 Dose: Not Given Divalproex Sodium (Depakote) 500 mg PO 04/01/18@1630 [facility] Stop: 04/01/18 16:31 Last Admin: 04/01/18 16:50 Dose: Not Given Divalproex Sodium (Depakote) 500 mg PO ONETIME ONE Stop: 04/01/18 16:46 Last Admin: 04/01/18 16:51 Dose: 500 mg Divalproex Sodium (Depakote Er) Confirm Administered Dose 500 mg .ROUTE .STK- MED ONE Stop: 04/01/18 22:11 Last Admin: 04/01/18 22:25 Dose: Not Given Enoxaparin Sodium (Lovenox) 40 mg SUBCUT Q24H [facility] Last Admin: 04/01/18 16:34 Dose: Not Given Azithromycin 500 mg/ Sodium (Chloride) 250 mls @ 250 mls/hr IV Q24H [facility] Last Admin: 04/01/18 16:34 Dose: Not Given Azithromycin 500 mg/ Sodium (Chloride) 250 mls @ 250 mls/hr IV Q24H [facility] Ceftriaxone Sodium 1 gm/ (Sodium Chloride) 50 mls @ 100 mls/hr IV Q24H [facility] Last Admin: 04/01/18 19:03 Dose: 100 mls/hr Ceftriaxone Sodium/Dextrose (Rocephin In Dextrose,Iso-Osm 1 Gm/50 Ml) Confirm Administered Dose 50 mls @ as directed .ROUTE .STK-MED ONE Stop: 04/01/18 18:48 Last Admin: 04/01/18 19:35 Dose: Not Given Iopamidol (Isovue Multipack-370 (76%)) 50 ml IVPUSH ONETIME STA Stop: 04/01/18 13:23 Last Admin: 04/01/18 13:23 Dose: 50 ml Methylprednisolone Sodium Succinate (Solu-Medrol) 125 mg IVPUSH ONETIME ONE Stop: 04/01/18 10:58 Last Admin: 04/01/18 11:13 Dose: 125 mg Methylprednisolone Sodium Succinate (Solu-Medrol) 125 mg IVPUSH Q6H [facility] Last Admin: 04/01/18 15:44 Dose: Not Given Morphine Sulfate (Morphine) 2 mg IVPUSH Q2H PRN PRN Reason: Pain (severe 7-10) Stop: 04/02/18 12:55 Morphine Sulfate (Morphine) 2 mg IVPUSH Q2H PRN PRN Reason: Pain (severe 7-10) Stop: 04/02/18 12:55 Levothyroxine 75 Mcg 1 each PO ACBREAKFAST [facility] Last Admin: 04/02/18 09:25 Dose: Not Given Divalproex Sodium Delayed-Release 500 Mg Tab.Cr 1 each PO 0800,1400,2200 [facility] Last Admin: 04/01/18 22:23 Dose: 1 each - Exam Quality Assessment: Supplemental Oxygen General: Alert, Oriented, Cooperative Lungs: Decreased Breath Sounds, Wheezing Cardiovascular: Regular Rate, Regular Rhythm - Problem List Review Problem List Initiated/Reviewed/Updated: Yes - My Orders Last 24 Hours: My Active Orders 04/01/18 16:30 Azithromycin [Zithromax] 500 mg Sodium Chloride 0.9% [Normal Saline] 250 ml IV Q24H Enoxaparin [Lovenox] 40 mg SUBCUT Q24H 04/01/18 17:30 methylPREDNISolone Sod Succ [Solu-MEDROL] 125 mg IVPUSH Q6H 04/01/18 18:15 CULTURE SPUTUM + SMEAR [RM] Stat 04/02/18 08:00 Divalproex Sodium [Depakote] 500 mg PO 0800,1400,2200 Levothyroxine 75 mcg PO ACBREAKFAST 04/02/18 09:00 Escitalopram [Lexapro] 20 mg PO DAILY Patient's Own Medication [Ptom] 1 each INH DAILY Patient's Own Medication [Ptom] 1 each INH DAILY 04/02/18 11:15 Polyethylene Glycol 3350 [MiraLAX] 17 gm PO DAILY - Plan Plan:: This is a 57-year-old female with a history of COPD being admitted due to tachypnea, hypoxia, tachycardia likely in the setting of acute COPD exacerbation. #1. Acute hypoxic respiratory failure secondary to acute exacerbation of COPD with possible community-acquired pneumonia infection -Patient placed on O2, Solu-Medrol, duo nebs scheduled, azithromycin for symptomatic management of her acute COPD exacerbation and possible community- acquired pneumonia infection based on CT Angio indicating possible PNA -Sputum cultures have been ordered Awaiting results -Chest x-ray did not indicate an acute pulmonary process and the patient did not have an elevated leukocytosis -CT angio did no show PE -Restart patient's home medications.
[2018-04-02] MEDS: Enoxaparin 40 MG/0.4 ML Syringe SUBCUT SCH (18:07)
[2018-04-02] MEDS: cefTRIAXone 1 GM in Premix Bag 1 BAG IV SCH (18:21)
[2018-04-03] MEDS: Albuterol/Ipratropium 3.0-0.5 MG/3 ML Neb Soln NEB SCH ×6 (02:06→21:52)
[2018-04-03] MEDS: Acetaminophen 325 MG Tab PO PRN ×2 (02:10→22:37)
[2018-04-03 06:04] LABS: CHLORIDE,CL 95 mmol/L (98-107); SODIUM,NA 129 mmol/L (136-145)
[2018-04-03] MEDS: LEVOTHYROXINE 75 MCG PO SCH (06:35)
[2018-04-03] MEDS: methylPREDNISolone Sodium Succinate 125 MG/2 ML SDV IVPUSH SCH ×4 (06:36→22:40)
[2018-04-03] MEDS: Divalproex Sodium Delayed-Release 500 MG Tab.CR PO SCH ×4 (09:10→22:36)
[2018-04-03] MEDS: Escitalopram 10 MG Tab PO SCH (09:10)
[2018-04-03] MEDS: Polyethylene Glycol 3350 Powder 17 GM Packet PO SCH ×2 (09:10→09:16)
[2018-04-03] MEDS: Umeclidinium Brm/Vilanterol Tr 1 PUFF INH SCH (10:00)
[2018-04-03] MEDS: Fluticasone Furoate [Arnuity Ellipta] 1 PUFF INH SCH (10:00)
--- NOTE | 2018-04-03 12:37 | PCM.PN ---
- General Info Date of Service: 04/03/18 Subjective Update: Patient feeling little bit better from a breathing standpoint however still having issues with sleep. Patient's daughter has brought her Unisom medication from home as a sleep aid that the patient takes. - Patient Data Vitals - Most Recent: Last Vital Signs Temp 36.6 C 04/03/18 12:00 Pulse 88 04/03/18 12:00 Resp 20 04/03/18 12:00 BP 112/69 04/03/18 12:00 Pulse Ox 91 L 04/03/18 12:00 Weight - Most Recent: 61.235 kg I&O - Last 24 Hours: Intake & Output 04/02/18 04/03/18 04/03/18 22:59 06:59 14:59 Intake Total 1750 300 Output Total 100 Balance 1750 200 Lab Results Last 24 Hours: Laboratory Results - last 24 hr 04/03/18 04/03/18 Range/Units 05:25 05:25 WBC 15.97 H (4.0-11.0) K/uL RBC 4.39 (4.30-5.90) M/uL Hgb 14.2 (12.0-16.0) g/dL Hct 42.0 (36.0-46.0) % MCV 95.7 (80.0-98.0) fL MCH 32.3 H (27.0-32.0) pg MCHC 33.8 (31.0-37.0) g/dL RDW Std Deviation 45.2 (28.0-62.0) fl RDW Coeff of Drew 13 (11.0-15.0) % Plt Count 82 L (150-400) K/uL MPV 11.30 (7.40-12.00) fL Neut % (Auto) 89.2 H (48.0-80.0) % Lymph % (Auto) 4.7 L (16.0-40.0) % [place] % (Auto) 6.0 (0.0-15.0) % Eos % (Auto) 0.0 (0.0-7.0) % Baso % (Auto) 0.1 (0.0-1.5) % Neut # (Auto) 14.3 H (1.4-5.7) K/uL Lymph # (Auto) 0.8 (0.6-2.4) K/uL [place] # (Auto) 1.0 H (0.0-0.8) K/uL Eos # (Auto) 0.0 (0.0-0.7) K/uL Baso # (Auto) 0.0 (0.0-0.1) K/uL Nucleated RBC % 0.0 /100WBC Nucleated RBCs # 0 K/uL Sodium 129 L (136-145) mmol/L Potassium 4.6 (3.5-5.1) mmol/L Chloride 95 L (98-107) mmol/L Carbon Dioxide 32.9 H (21.0-32.0) mmol/L BUN 22 H (7.0-18.0) mg/dL Creatinine 0.7 (0.6-1.0) mg/dL Est Cr Clr Drug Dosing 83.01 mL/min Estimated GFR (MDRD) > 60.0 ml/min Glucose 156 H (74-106) mg/dL Calcium 8.4 L (8.5-10.1) mg/dL Total Bilirubin 0.3 (0.2-1.0) mg/dL AST 15 (15-37) IU/L ALT 10 L (14-63) IU/L Alkaline Phosphatase 45 L (46-116) U/L Total Protein 5.3 L (6.4-8.2) g/dL Albumin 2.2 L (3.4-5.0) g/dL Globulin 3.1 (2.6-4.0) g/dL Albumin/Globulin Ratio 0.7 L (0.9-1.6) Chu Results Last 24 Hours: Microbiology 04/01/18 18:15 Gram Stain - Final Sputum - Expectorated Sputum Culture - Final Normal Respiratory Rosy Med Orders - Current: Current Medications Acetaminophen (Tylenol) 650 mg PO Q4H PRN PRN Reason: Pain (Mild 1-3)/fever Last Admin: 04/03/18 02:10 Dose: 650 mg Albuterol/Ipratropium (Duoneb 3.0-0.5 Mg/3 Ml) 3 ml NEB Q4HRRT [facility] Last Admin: 04/03/18 10:00 Dose: 3 ml Divalproex Sodium (Depakote) 500 mg PO 0800,1400,2200 [facility] Last Admin: 04/03/18 09:11 Dose: Not Given Enoxaparin Sodium (Lovenox) 40 mg SUBCUT Q24H [facility] Last Admin: 04/02/18 18:07 Dose: Not Given Escitalopram Oxalate (Lexapro) 20 mg PO DAILY [facility] Last Admin: 04/03/18 09:10 Dose: 20 mg Azithromycin 500 mg/ Sodium (Chloride) 250 mls @ 250 mls/hr IV Q24H [facility] Last Admin: 04/02/18 16:56 Dose: 250 mls/hr Ceftriaxone Sodium/Dextrose 1 (gm/ Premix) 50 mls @ 100 mls/hr IV Q24H [facility] Last Admin: 04/02/18 18:21 Dose: 100 mls/hr Levothyroxine Sodium (Levothyroxine) 75 mcg PO ACBREAKFAST [facility] Last Admin: 04/03/18 06:35 Dose: 75 mcg Methylprednisolone Sodium Succinate (Solu-Medrol) 125 mg IVPUSH Q6H [facility] Last Admin: 04/03/18 06:36 Dose: 125 mg Ondansetron HCl (Zofran) 4 mg IVPUSH Q4H PRN PRN Reason: Nausea/Vomiting Fluticasone Furoate [Arnuity Ellipta] 1 Puff 1 each INH DAILY [facility] Last Admin: 04/03/18 10:00 Dose: 1 each Umeclidinium Brm/ (Vilanterol Tr 1 Puff) 1 each INH DAILY [facility] Last Admin: 04/03/18 10:00 Dose: 1 each Polyethylene Glycol (Miralax) 17 gm PO DAILY [facility] Last Admin: 04/03/18 09:16 Dose: Not Given Sodium Chloride (Saline Flush) 10 ml FLUSH ASDIRECTED PRN PRN Reason: Keep Vein Open Last Admin: 04/01/18 11:14 Dose: 10 ml Sodium Chloride (Saline Flush) 2.5 ml FLUSH ASDIRECTED PRN PRN Reason: Keep Vein Open Last Admin: 04/01/18 11:13 Dose: 2.5 ml Sodium Chloride (Saline Flush) 10 ml FLUSH ASDIRECTED PRN PRN Reason: Keep Vein Open Sodium Chloride (Saline Flush) 2.5 ml FLUSH ASDIRECTED PRN PRN Reason: Keep Vein Open Discontinued Medications Albuterol/Ipratropium (Duoneb 3.0-0.5 Mg/3 Ml) 3 ml NEB ONETIME ONE Stop: 04/01/18 10:54 Last Admin: 04/01/18 11:13 Dose: 3 ml Albuterol/Ipratropium (Duoneb 3.0-0.5 Mg/3 Ml) 3 ml NEB ONETIME ONE Stop: 04/01/18 11:24 Last Admin: 04/01/18 11:29 Dose: 3 ml Aspirin (Aspirin) 324 mg PO ONETIME ONE Stop: 04/01/18 11:22 Last Admin: 04/01/18 11:53 Dose: 324 mg Divalproex Sodium (Divalproex Sodium) 250 mg PO TID [facility] Last Admin: 04/01/18 16:35 Dose: Not Given Divalproex Sodium (Depakote) 500 mg PO 04/01/18@1630 [facility] Stop: 04/01/18 16:31 Last Admin: 04/01/18 16:50 Dose: Not Given Divalproex Sodium (Depakote) 500 mg PO ONETIME ONE Stop: 04/01/18 16:46 Last Admin: 04/01/18 16:51 Dose: 500 mg Divalproex Sodium (Depakote Er) Confirm Administered Dose 500 mg .ROUTE .STK- MED ONE Stop: 04/01/18 22:11 Last Admin: 04/01/18 22:25 Dose: Not Given Enoxaparin Sodium (Lovenox) 40 mg SUBCUT Q24H [facility] Last Admin: 04/01/18 16:34 Dose: Not Given Azithromycin 500 mg/ Sodium (Chloride) 250 mls @ 250 mls/hr IV Q24H [facility] Last Admin: 04/01/18 16:34 Dose: Not Given Azithromycin 500 mg/ Sodium (Chloride) 250 mls @ 250 mls/hr IV Q24H [facility] Ceftriaxone Sodium 1 gm/ (Sodium Chloride) 50 mls @ 100 mls/hr IV Q24H [facility] Last Admin: 04/01/18 19:03 Dose: 100 mls/hr Ceftriaxone Sodium/Dextrose (Rocephin In Dextrose,Iso-Osm 1 Gm/50 Ml) Confirm Administered Dose 50 mls @ as directed .ROUTE .STK-MED ONE Stop: 04/01/18 18:48 Last Admin: 04/01/18 19:35 Dose: Not Given Iopamidol (Isovue Multipack-370 (76%)) 50 ml IVPUSH ONETIME STA Stop: 04/01/18 13:23 Last Admin: 04/01/18 13:23 Dose: 50 ml Methylprednisolone Sodium Succinate (Solu-Medrol) 125 mg IVPUSH ONETIME ONE Stop: 04/01/18 10:58 Last Admin: 04/01/18 11:13 Dose: 125 mg Methylprednisolone Sodium Succinate (Solu-Medrol) 125 mg IVPUSH Q6H [facility] Last Admin: 04/01/18 15:44 Dose: Not Given Morphine Sulfate (Morphine) 2 mg IVPUSH Q2H PRN PRN Reason: Pain (severe 7-10) Stop: 04/02/18 12:55 Morphine Sulfate (Morphine) 2 mg IVPUSH Q2H PRN PRN Reason: Pain (severe 7-10) Stop: 04/02/18 12:55 Levothyroxine 75 Mcg 1 each PO ACBREAKFAST [facility] Last Admin: 04/02/18 09:25 Dose: Not Given Divalproex Sodium Delayed-Release 500 Mg Tab.Cr 1 each PO 0800,1400,2200 [facility] Last Admin: 04/01/18 22:23 Dose: 1 each - Exam Quality Assessment: Supplemental Oxygen General: Alert, Oriented, Cooperative Lungs: Decreased Breath Sounds Cardiovascular: Regular Rate, Regular Rhythm - Problem List Review Problem List Initiated/Reviewed/Updated: Yes - My Orders Last 24 Hours: My Active Orders 04/03/18 Lunch Regular Diet [DIET] 04/04/18 05:11 CBC WITH AUTO DIFF [HEME] AM COMPREHENSIVE METABOLIC PN,CMP [CHEM] AM 04/05/18 05:11 CBC WITH AUTO DIFF [HEME] AM COMPREHENSIVE METABOLIC PN,CMP [CHEM] AM - Plan Plan:: This is a 57-year-old female with a history of COPD being admitted due to tachypnea, hypoxia, tachycardia likely in the setting of acute COPD exacerbation. #1. Acute hypoxic respiratory failure secondary to acute exacerbation of COPD with possible community-acquired pneumonia infection -Patient placed on O2, Solu-Medrol, duo nebs scheduled, azithromycin for symptomatic management of her acute COPD exacerbation and possible community- acquired pneumonia infection based on CT Angio indicating possible PNA -Sputum cultures awaiting speciation -Chest x-ray did not indicate an acute pulmonary process and the patient did not have an elevated leukocytosis -CT angio did no show PE, possible did show atypical infectious process -Patient still complaining of sleep, daughter has brought her home medication of Unisom patient will be allowed to take at night. -Patient is slightly hyponatremic with a sodium of 129, likely in the setting of dehydration, patient encouraged to drink more fluids and has been changed to regular diet.
[2018-04-03] MEDS: Azithromycin 500 MG in Sodium Chloride 0.9% 250 ML IV SCH (16:32)
[2018-04-03] MEDS: Enoxaparin 40 MG/0.4 ML Syringe SUBCUT SCH (16:41)
[2018-04-03] MEDS: cefTRIAXone 1 GM in Premix Bag 1 BAG IV SCH (18:31)
[2018-04-03] MEDS ORDERED: DOXYLAMINE SUCCINATE 25 MG PO PRN (19:25)
[2018-04-04] MEDS: Albuterol/Ipratropium 3.0-0.5 MG/3 ML Neb Soln NEB SCH ×6 (02:11→21:10)
[2018-04-04] MEDS: methylPREDNISolone Sodium Succinate 125 MG/2 ML SDV IVPUSH SCH ×4 (05:21→22:31)
[2018-04-04 05:59] LABS: CHLORIDE,CL 95 mmol/L (98-107); SODIUM,NA 131 mmol/L (136-145)
[2018-04-04] MEDS: LEVOTHYROXINE 75 MCG PO SCH (06:43)
[2018-04-04] MEDS: Divalproex Sodium Delayed-Release 500 MG Tab.CR PO SCH ×3 (08:30→22:31)
[2018-04-04] MEDS: Escitalopram 10 MG Tab PO SCH (08:31)
[2018-04-04] MEDS: Polyethylene Glycol 3350 Powder 17 GM Packet PO SCH (08:32)
[2018-04-04] MEDS: Umeclidinium Brm/Vilanterol Tr 1 PUFF INH SCH (08:53)
[2018-04-04] MEDS: Fluticasone Furoate [Arnuity Ellipta] 1 PUFF INH SCH (08:53)
--- NOTE | 2018-04-04 12:46 | PCM.PN ---
- General Info Date of Service: 04/04/18 Subjective Update: Patient continues to improve, still hypoxic on 3 L of O2. Patient slept well as she was able to take her Unisom overnight. - Patient Data Vitals - Most Recent: Last Vital Signs Temp 36.7 C 04/04/18 08:00 Pulse 80 04/04/18 08:00 Resp 16 04/04/18 08:00 BP 118/67 04/04/18 08:00 Pulse Ox 91 L 04/04/18 08:00 Weight - Most Recent: 61.235 kg I&O - Last 24 Hours: Intake & Output 04/03/18 04/04/18 04/04/18 22:59 06:59 14:59 Intake Total 720 340 Output Total 500 200 Balance 220 140 Lab Results Last 24 Hours: Laboratory Results - last 24 hr 04/04/18 04/04/18 Range/Units 05:00 05:00 WBC 13.49 H (4.0-11.0) K/uL RBC 4.34 (4.30-5.90) M/uL Hgb 14.0 (12.0-16.0) g/dL Hct 41.5 (36.0-46.0) % MCV 95.6 (80.0-98.0) fL MCH 32.3 H (27.0-32.0) pg MCHC 33.7 (31.0-37.0) g/dL RDW Std Deviation 45.0 (28.0-62.0) fl RDW Coeff of Drew 13 (11.0-15.0) % Plt Count 90 L (150-400) K/uL MPV 11.80 (7.40-12.00) fL Neut % (Auto) 91.0 H (48.0-80.0) % Lymph % (Auto) 5.0 L (16.0-40.0) % [place] % (Auto) 3.9 (0.0-15.0) % Eos % (Auto) 0.0 (0.0-7.0) % Baso % (Auto) 0.1 (0.0-1.5) % Neut # (Auto) 12.3 H (1.4-5.7) K/uL Lymph # (Auto) 0.7 (0.6-2.4) K/uL [place] # (Auto) 0.5 (0.0-0.8) K/uL Eos # (Auto) 0.0 (0.0-0.7) K/uL Baso # (Auto) 0.0 (0.0-0.1) K/uL Nucleated RBC % 0.0 /100WBC Nucleated RBCs # 0 K/uL Sodium 131 L (136-145) mmol/L Potassium 4.6 (3.5-5.1) mmol/L Chloride 95 L (98-107) mmol/L Carbon Dioxide 32.8 H (21.0-32.0) mmol/L BUN 23 H (7.0-18.0) mg/dL Creatinine 0.6 (0.6-1.0) mg/dL Est Cr Clr Drug Dosing 96.84 mL/min Estimated GFR (MDRD) > 60.0 ml/min Glucose 146 H (74-106) mg/dL Calcium 7.9 L (8.5-10.1) mg/dL Total Bilirubin 0.2 (0.2-1.0) mg/dL AST 11 L (15-37) IU/L ALT 11 L (14-63) IU/L Alkaline Phosphatase 51 (46-116) U/L Total Protein 5.1 L (6.4-8.2) g/dL Albumin 2.1 L (3.4-5.0) g/dL Globulin 3.0 (2.6-4.0) g/dL Albumin/Globulin Ratio 0.7 L (0.9-1.6) Chu Results Last 24 Hours: Microbiology 04/01/18 18:15 Gram Stain - Final Sputum - Expectorated Sputum Culture - Final Normal Respiratory Khushi Med Orders - Current: Current Medications Acetaminophen (Tylenol) 650 mg PO Q4H PRN PRN Reason: Pain (Mild 1-3)/fever Last Admin: 04/03/18 22:37 Dose: 650 mg Albuterol/Ipratropium (Duoneb 3.0-0.5 Mg/3 Ml) 3 ml NEB Q4HRRT [facility] Last Admin: 04/04/18 10:23 Dose: 3 ml Divalproex Sodium (Depakote) 500 mg PO 0800,1400,2200 [facility] Last Admin: 04/04/18 08:30 Dose: 500 mg Enoxaparin Sodium (Lovenox) 40 mg SUBCUT Q24H [facility] Last Admin: 04/03/18 16:41 Dose: Not Given Escitalopram Oxalate (Lexapro) 20 mg PO DAILY [facility] Last Admin: 04/04/18 08:31 Dose: 20 mg Azithromycin 500 mg/ Sodium (Chloride) 250 mls @ 250 mls/hr IV Q24H [facility] Last Admin: 04/03/18 16:32 Dose: 250 mls/hr Ceftriaxone Sodium/Dextrose 1 (gm/ Premix) 50 mls @ 100 mls/hr IV Q24H [facility] Last Admin: 04/03/18 18:31 Dose: 100 mls/hr Levothyroxine Sodium (Levothyroxine) 75 mcg PO ACBREAKFAST [facility] Last Admin: 04/04/18 06:43 Dose: 75 mcg Methylprednisolone Sodium Succinate (Solu-Medrol) 125 mg IVPUSH Q6H [facility] Last Admin: 04/04/18 11:53 Dose: 125 mg Ondansetron HCl (Zofran) 4 mg IVPUSH Q4H PRN PRN Reason: Nausea/Vomiting Fluticasone Furoate [Arnuity Ellipta] 1 Puff 1 each INH DAILY [facility] Last Admin: 04/04/18 08:53 Dose: 1 each Umeclidinium Brm/ (Vilanterol Tr 1 Puff) 1 each INH DAILY [facility] Last Admin: 04/04/18 08:53 Dose: 1 each Doxylamine Succinate (Unisom) 25mg Ptom 1 each PO BEDTIME PRN PRN Reason: Sleep Polyethylene Glycol (Miralax) 17 gm PO DAILY [facility] Last Admin: 04/04/18 08:32 Dose: Not Given Sodium Chloride (Saline Flush) 10 ml FLUSH ASDIRECTED PRN PRN Reason: Keep Vein Open Last Admin: 04/01/18 11:14 Dose: 10 ml Sodium Chloride (Saline Flush) 2.5 ml FLUSH ASDIRECTED PRN PRN Reason: Keep Vein Open Last Admin: 04/01/18 11:13 Dose: 2.5 ml Sodium Chloride (Saline Flush) 10 ml FLUSH ASDIRECTED PRN PRN Reason: Keep Vein Open Sodium Chloride (Saline Flush) 2.5 ml FLUSH ASDIRECTED PRN PRN Reason: Keep Vein Open Discontinued Medications Albuterol/Ipratropium (Duoneb 3.0-0.5 Mg/3 Ml) 3 ml NEB ONETIME ONE Stop: 04/01/18 10:54 Last Admin: 04/01/18 11:13 Dose: 3 ml Albuterol/Ipratropium (Duoneb 3.0-0.5 Mg/3 Ml) 3 ml NEB ONETIME ONE Stop: 04/01/18 11:24 Last Admin: 04/01/18 11:29 Dose: 3 ml Aspirin (Aspirin) 324 mg PO ONETIME ONE Stop: 04/01/18 11:22 Last Admin: 04/01/18 11:53 Dose: 324 mg Divalproex Sodium (Divalproex Sodium) 250 mg PO TID [facility] Last Admin: 04/01/18 16:35 Dose: Not Given Divalproex Sodium (Depakote) 500 mg PO 04/01/18@1630 [facility] Stop: 04/01/18 16:31 Last Admin: 04/01/18 16:50 Dose: Not Given Divalproex Sodium (Depakote) 500 mg PO ONETIME ONE Stop: 04/01/18 16:46 Last Admin: 04/01/18 16:51 Dose: 500 mg Divalproex Sodium (Depakote Er) Confirm Administered Dose 500 mg .ROUTE .STK- MED ONE Stop: 04/01/18 22:11 Last Admin: 04/01/18 22:25 Dose: Not Given Enoxaparin Sodium (Lovenox) 40 mg SUBCUT Q24H [facility] Last Admin: 04/01/18 16:34 Dose: Not Given Azithromycin 500 mg/ Sodium (Chloride) 250 mls @ 250 mls/hr IV Q24H [facility] Last Admin: 04/01/18 16:34 Dose: Not Given Azithromycin 500 mg/ Sodium (Chloride) 250 mls @ 250 mls/hr IV Q24H [facility] Ceftriaxone Sodium 1 gm/ (Sodium Chloride) 50 mls @ 100 mls/hr IV Q24H [facility] Last Admin: 04/01/18 19:03 Dose: 100 mls/hr Ceftriaxone Sodium/Dextrose (Rocephin In Dextrose,Iso-Osm 1 Gm/50 Ml) Confirm Administered Dose 50 mls @ as directed .ROUTE .STK-MED ONE Stop: 04/01/18 18:48 Last Admin: 04/01/18 19:35 Dose: Not Given Iopamidol (Isovue Multipack-370 (76%)) 50 ml IVPUSH ONETIME STA Stop: 04/01/18 13:23 Last Admin: 04/01/18 13:23 Dose: 50 ml Methylprednisolone Sodium Succinate (Solu-Medrol) 125 mg IVPUSH ONETIME ONE Stop: 04/01/18 10:58 Last Admin: 04/01/18 11:13 Dose: 125 mg Methylprednisolone Sodium Succinate (Solu-Medrol) 125 mg IVPUSH Q6H [facility] Last Admin: 04/01/18 15:44 Dose: Not Given Morphine Sulfate (Morphine) 2 mg IVPUSH Q2H PRN PRN Reason: Pain (severe 7-10) Stop: 04/02/18 12:55 Morphine Sulfate (Morphine) 2 mg IVPUSH Q2H PRN PRN Reason: Pain (severe 7-10) Stop: 04/02/18 12:55 Doxylamine Succinate (Unisom) 25mg Ptom 1 each PO BEDTIME PRN PRN Reason: Sleep Last Admin: 04/03/18 22:37 Dose: 1 each Levothyroxine 75 Mcg 1 each PO ACBREAKFAST [facility] Last Admin: 04/02/18 09:25 Dose: Not Given Divalproex Sodium Delayed-Release 500 Mg Tab.Cr 1 each PO 0800,1400,2200 [facility] Last Admin: 04/01/18 22:23 Dose: 1 each - Exam Quality Assessment: Supplemental Oxygen General: Alert, Oriented Lungs: Decreased Breath Sounds Cardiovascular: Regular Rate, Regular Rhythm - Problem List Review Problem List Initiated/Reviewed/Updated: Yes - My Orders Last 24 Hours: My Active Orders 04/03/18 17:59 Admission Status [Patient Status] [ADT] Routine 04/04/18 09:30 Patient's Own Medication [Ptom] 1 each PO BEDTIME PRN 04/05/18 05:11 CBC WITH AUTO DIFF [HEME] AM COMPREHENSIVE METABOLIC PN,CMP [CHEM] AM - Plan Plan:: This is a 57-year-old female with a history of COPD being admitted due to tachypnea, hypoxia, tachycardia likely in the setting of acute COPD exacerbation. #1. Acute hypoxic respiratory failure secondary to acute exacerbation of COPD with possible community-acquired pneumonia infection -Patient placed on O2, Solu-Medrol, duo nebs scheduled, azithromycin for symptomatic management of her acute COPD exacerbation and possible community- acquired pneumonia infection based on CT Angio indicating possible PNA -Sputum cultures growing normal respiratory khushi -Patient is improving from her acute COPD exacerbation. Her O2 requirements are decreasing, continue with current interventions and shall reassess in the a.m. for possible DC if the patient's symptoms continue to improve.
[2018-04-04] MEDS: Enoxaparin 40 MG/0.4 ML Syringe SUBCUT SCH (16:50)
[2018-04-04] MEDS: Azithromycin 500 MG in Sodium Chloride 0.9% 250 ML IV SCH (16:50)
[2018-04-04] MEDS: cefTRIAXone 1 GM in Premix Bag 1 BAG IV SCH (18:28)
[2018-04-04] MEDS: DOXYLAMINE SUCCINATE 25 MG PO PRN (22:32)
[2018-04-05] MEDS: Albuterol/Ipratropium 3.0-0.5 MG/3 ML Neb Soln NEB SCH ×6 (01:17→21:12)
[2018-04-05 05:55] LABS: CHLORIDE,CL 98 mmol/L (98-107); SODIUM,NA 134 mmol/L (136-145)
[2018-04-05] MEDS: LEVOTHYROXINE 75 MCG PO SCH (06:36)
[2018-04-05] MEDS: methylPREDNISolone Sodium Succinate 125 MG/2 ML SDV IVPUSH SCH ×4 (06:36→23:34)
[2018-04-05] MEDS: Divalproex Sodium Delayed-Release 500 MG Tab.CR PO SCH ×3 (08:12→23:34)
[2018-04-05] MEDS: Escitalopram 10 MG Tab PO SCH (08:12)
[2018-04-05] MEDS: Polyethylene Glycol 3350 Powder 17 GM Packet PO SCH (08:12)
[2018-04-05] MEDS: Fluticasone Furoate [Arnuity Ellipta] 1 PUFF INH SCH (08:38)
[2018-04-05] MEDS: Umeclidinium Brm/Vilanterol Tr 1 PUFF INH SCH (08:39)
[2018-04-05] MEDS: Azithromycin 500 MG in Sodium Chloride 0.9% 250 ML IV SCH (16:44)
[2018-04-05] MEDS: Enoxaparin 40 MG/0.4 ML Syringe SUBCUT SCH (17:16)
[2018-04-05] MEDS: cefTRIAXone 1 GM in Premix Bag 1 BAG IV SCH (17:58)
--- NOTE | 2018-04-05 18:56 | PCM.PN ---
- General Info Date of Service: 04/05/18 Subjective Update: Patient still continues to be requiring 4 L of O2 but is improving. - Patient Data Vitals - Most Recent: Last Vital Signs Temp 36.9 C 04/05/18 07:35 Pulse 88 04/05/18 07:35 Resp 18 04/05/18 07:35 BP 130/72 04/05/18 07:35 Pulse Ox 90 L 04/05/18 07:35 Weight - Most Recent: 61.235 kg I&O - Last 24 Hours: Intake & Output 04/05/18 04/05/18 04/05/18 06:59 14:59 22:59 Intake Total 1000 1250 Output Total 475 1300 Balance 525 -50 Lab Results Last 24 Hours: Laboratory Results - last 24 hr 04/05/18 04/05/18 Range/Units 05:10 05:10 WBC 10.35 (4.0-11.0) K/uL RBC 4.51 (4.30-5.90) M/uL Hgb 14.2 (12.0-16.0) g/dL Hct 43.0 (36.0-46.0) % MCV 95.3 (80.0-98.0) fL MCH 31.5 (27.0-32.0) pg MCHC 33.0 (31.0-37.0) g/dL RDW Std Deviation 44.7 (28.0-62.0) fl RDW Coeff of Drew 13 (11.0-15.0) % Plt Count 101 L (150-400) K/uL MPV 11.30 (7.40-12.00) fL Neut % (Auto) 89.4 H (48.0-80.0) % Lymph % (Auto) 5.9 L (16.0-40.0) % [place] % (Auto) 4.7 (0.0-15.0) % Eos % (Auto) 0.0 (0.0-7.0) % Baso % (Auto) 0.0 (0.0-1.5) % Neut # (Auto) 9.3 H (1.4-5.7) K/uL Lymph # (Auto) 0.6 (0.6-2.4) K/uL [place] # (Auto) 0.5 (0.0-0.8) K/uL Eos # (Auto) 0.0 (0.0-0.7) K/uL Baso # (Auto) 0.0 (0.0-0.1) K/uL Nucleated RBC % 0.0 /100WBC Nucleated RBCs # 0 K/uL Sodium 134 L (136-145) mmol/L Potassium 4.3 (3.5-5.1) mmol/L Chloride 98 (98-107) mmol/L Carbon Dioxide 33.6 H (21.0-32.0) mmol/L BUN 18 (7.0-18.0) mg/dL Creatinine 0.6 (0.6-1.0) mg/dL Est Cr Clr Drug Dosing 96.84 mL/min Estimated GFR (MDRD) > 60.0 ml/min Glucose 197 H (74-106) mg/dL Calcium 8.1 L (8.5-10.1) mg/dL Total Bilirubin 0.2 (0.2-1.0) mg/dL AST 11 L (15-37) IU/L ALT 8 L (14-63) IU/L Alkaline Phosphatase 62 (46-116) U/L Total Protein 5.1 L (6.4-8.2) g/dL Albumin 2.1 L (3.4-5.0) g/dL Globulin 3.0 (2.6-4.0) g/dL Albumin/Globulin Ratio 0.7 L (0.9-1.6) Med Orders - Current: Current Medications Acetaminophen (Tylenol) 650 mg PO Q4H PRN PRN Reason: Pain (Mild 1-3)/fever Last Admin: 04/03/18 22:37 Dose: 650 mg Albuterol/Ipratropium (Duoneb 3.0-0.5 Mg/3 Ml) 3 ml NEB Q4HRRT [facility] Last Admin: 04/05/18 17:08 Dose: 3 ml Divalproex Sodium (Depakote) 500 mg PO 0800,1400,2200 [facility] Last Admin: 04/05/18 15:15 Dose: 500 mg Enoxaparin Sodium (Lovenox) 40 mg SUBCUT Q24H [facility] Last Admin: 04/05/18 17:16 Dose: Not Given Escitalopram Oxalate (Lexapro) 20 mg PO DAILY [facility] Last Admin: 04/05/18 08:12 Dose: 20 mg Azithromycin 500 mg/ Sodium (Chloride) 250 mls @ 250 mls/hr IV Q24H [facility] Last Admin: 04/05/18 16:44 Dose: 250 mls/hr Ceftriaxone Sodium/Dextrose 1 (gm/ Premix) 50 mls @ 100 mls/hr IV Q24H [facility] Last Admin: 04/05/18 17:58 Dose: 100 mls/hr Levothyroxine Sodium (Levothyroxine) 75 mcg PO ACBREAKFAST [facility] Last Admin: 04/05/18 06:36 Dose: 75 mcg Methylprednisolone Sodium Succinate (Solu-Medrol) 125 mg IVPUSH Q6H [facility] Last Admin: 04/05/18 16:44 Dose: 125 mg Ondansetron HCl (Zofran) 4 mg IVPUSH Q4H PRN PRN Reason: Nausea/Vomiting Fluticasone Furoate [Arnuity Ellipta] 1 Puff 1 each INH DAILY [facility] Last Admin: 04/05/18 08:38 Dose: Not Given Umeclidinium Brm/ (Vilanterol Tr 1 Puff) 1 each INH DAILY [facility] Last Admin: 04/05/18 08:39 Dose: Not Given Doxylamine Succinate (Unisom) 25mg Ptom 1 each PO BEDTIME PRN PRN Reason: Sleep Last Admin: 04/04/18 22:32 Dose: 1 each Polyethylene Glycol (Miralax) 17 gm PO DAILY [facility] Last Admin: 04/05/18 08:12 Dose: Not Given Sodium Chloride (Saline Flush) 10 ml FLUSH ASDIRECTED PRN PRN Reason: Keep Vein Open Last Admin: 04/01/18 11:14 Dose: 10 ml Sodium Chloride (Saline Flush) 2.5 ml FLUSH ASDIRECTED PRN PRN Reason: Keep Vein Open Last Admin: 04/01/18 11:13 Dose: 2.5 ml Sodium Chloride (Saline Flush) 10 ml FLUSH ASDIRECTED PRN PRN Reason: Keep Vein Open Sodium Chloride (Saline Flush) 2.5 ml FLUSH ASDIRECTED PRN PRN Reason: Keep Vein Open Discontinued Medications Albuterol/Ipratropium (Duoneb 3.0-0.5 Mg/3 Ml) 3 ml NEB ONETIME ONE Stop: 04/01/18 10:54 Last Admin: 04/01/18 11:13 Dose: 3 ml Albuterol/Ipratropium (Duoneb 3.0-0.5 Mg/3 Ml) 3 ml NEB ONETIME ONE Stop: 04/01/18 11:24 Last Admin: 04/01/18 11:29 Dose: 3 ml Aspirin (Aspirin) 324 mg PO ONETIME ONE Stop: 04/01/18 11:22 Last Admin: 04/01/18 11:53 Dose: 324 mg Divalproex Sodium (Divalproex Sodium) 250 mg PO TID [facility] Last Admin: 04/01/18 16:35 Dose: Not Given Divalproex Sodium (Depakote) 500 mg PO 04/01/18@1630 RADHA Stop: 04/01/18 16:31 Last Admin: 04/01/18 16:50 Dose: Not Given Divalproex Sodium (Depakote) 500 mg PO ONETIME ONE Stop: 04/01/18 16:46 Last Admin: 04/01/18 16:51 Dose: 500 mg Divalproex Sodium (Depakote Er) Confirm Administered Dose 500 mg .ROUTE .STK- MED ONE Stop: 04/01/18 22:11 Last Admin: 04/01/18 22:25 Dose: Not Given Enoxaparin Sodium (Lovenox) 40 mg SUBCUT Q24H [facility] Last Admin: 04/01/18 16:34 Dose: Not Given Azithromycin 500 mg/ Sodium (Chloride) 250 mls @ 250 mls/hr IV Q24H [facility] Last Admin: 04/01/18 16:34 Dose: Not Given Azithromycin 500 mg/ Sodium (Chloride) 250 mls @ 250 mls/hr IV Q24H [facility] Ceftriaxone Sodium 1 gm/ (Sodium Chloride) 50 mls @ 100 mls/hr IV Q24H [facility] Last Admin: 04/01/18 19:03 Dose: 100 mls/hr Ceftriaxone Sodium/Dextrose (Rocephin In Dextrose,Iso-Osm 1 Gm/50 Ml) Confirm Administered Dose 50 mls @ as directed .ROUTE .STK-MED ONE Stop: 04/01/18 18:48 Last Admin: 04/01/18 19:35 Dose: Not Given Iopamidol (Isovue Multipack-370 (76%)) 50 ml IVPUSH ONETIME STA Stop: 04/01/18 13:23 Last Admin: 04/01/18 13:23 Dose: 50 ml Methylprednisolone Sodium Succinate (Solu-Medrol) 125 mg IVPUSH ONETIME ONE Stop: 04/01/18 10:58 Last Admin: 04/01/18 11:13 Dose: 125 mg Methylprednisolone Sodium Succinate (Solu-Medrol) 125 mg IVPUSH Q6H [facility] Last Admin: 04/01/18 15:44 Dose: Not Given Morphine Sulfate (Morphine) 2 mg IVPUSH Q2H PRN PRN Reason: Pain (severe 7-10) Stop: 04/02/18 12:55 Morphine Sulfate (Morphine) 2 mg IVPUSH Q2H PRN PRN Reason: Pain (severe 7-10) Stop: 04/02/18 12:55 Doxylamine Succinate (Unisom) 25mg Ptom 1 each PO BEDTIME PRN PRN Reason: Sleep Last Admin: 04/03/18 22:37 Dose: 1 each Levothyroxine 75 Mcg 1 each PO ACBREAKFAST [facility] Last Admin: 04/02/18 09:25 Dose: Not Given Divalproex Sodium Delayed-Release 500 Mg Tab.Cr 1 each PO 0800,1400,2200 [facility] Last Admin: 04/01/18 22:23 Dose: 1 each - Exam Quality Assessment: Supplemental Oxygen General: Alert, Oriented Lungs: Decreased Breath Sounds Cardiovascular: Regular Rate, Regular Rhythm - Problem List Review Problem List Initiated/Reviewed/Updated: Yes - Plan Plan:: This is a 57-year-old female with a history of COPD being admitted due to tachypnea, hypoxia, tachycardia likely in the setting of acute COPD exacerbation. #1. Acute hypoxic respiratory failure secondary to acute exacerbation of COPD with possible community-acquired pneumonia infection -Patient placed on O2, Solu-Medrol, duo nebs scheduled, azithromycin for symptomatic management of her acute COPD exacerbation and possible community- acquired pneumonia infection based on CT Angio indicating possible PNA -Sputum cultures growing normal respiratory khushi -Patient is improving from her acute COPD exacerbation. Patient continues to require 4 L of O2 support, due to the increased requirement of the patient's O2 requirement and the need for antibiotics for her community acquired pneumonia patient likely to be here over the weekend until her hypoxia improves.
[2018-04-05] MEDS: DOXYLAMINE SUCCINATE 25 MG PO PRN (23:35)
[2018-04-06] MEDS: Albuterol/Ipratropium 3.0-0.5 MG/3 ML Neb Soln NEB SCH ×6 (03:32→21:03)
[2018-04-06] MEDS: LEVOTHYROXINE 75 MCG PO SCH (06:42)
[2018-04-06] MEDS: methylPREDNISolone Sodium Succinate 125 MG/2 ML SDV IVPUSH SCH ×4 (06:42→22:38)
[2018-04-06 07:15] LABS: CHLORIDE,CL 100 mmol/L (98-107); SODIUM,NA 135 mmol/L (136-145)
[2018-04-06] MEDS: Divalproex Sodium Delayed-Release 500 MG Tab.CR PO SCH ×3 (08:39→22:37)
[2018-04-06] MEDS: Escitalopram 10 MG Tab PO SCH (08:40)
[2018-04-06] MEDS: Polyethylene Glycol 3350 Powder 17 GM Packet PO SCH (08:40)
--- NOTE | 2018-04-06 09:30 | PCM.PN ---
- General Info Date of Service: 04/06/18 Subjective Update: Stable continues to be hypoxic - Patient Data Vitals - Most Recent: Last Vital Signs Temp 36.2 C 04/06/18 07:29 Pulse 74 04/06/18 07:29 Resp 18 04/06/18 07:29 BP 125/71 04/06/18 07:29 Pulse Ox 91 L 04/06/18 07:29 Weight - Most Recent: 61.235 kg I&O - Last 24 Hours: Intake & Output 04/05/18 04/06/18 04/06/18 22:59 06:59 14:59 Intake Total 1250 Output Total 1300 Balance -50 Lab Results Last 24 Hours: Laboratory Results - last 24 hr 04/06/18 04/06/18 Range/Units 05:54 05:54 WBC 10.09 (4.0-11.0) K/uL RBC 4.43 (4.30-5.90) M/uL Hgb 14.2 (12.0-16.0) g/dL Hct 42.3 (36.0-46.0) % MCV 95.5 (80.0-98.0) fL MCH 32.1 H (27.0-32.0) pg MCHC 33.6 (31.0-37.0) g/dL RDW Std Deviation 45.4 (28.0-62.0) fl RDW Coeff of Drew 13 (11.0-15.0) % Plt Count 126 L (150-400) K/uL MPV 11.70 (7.40-12.00) fL Neut % (Auto) 88.1 H (48.0-80.0) % Lymph % (Auto) 7.0 L (16.0-40.0) % [place] % (Auto) 4.8 (0.0-15.0) % Eos % (Auto) 0.0 (0.0-7.0) % Baso % (Auto) 0.1 (0.0-1.5) % Neut # (Auto) 8.9 H (1.4-5.7) K/uL Lymph # (Auto) 0.7 (0.6-2.4) K/uL [place] # (Auto) 0.5 (0.0-0.8) K/uL Eos # (Auto) 0.0 (0.0-0.7) K/uL Baso # (Auto) 0.0 (0.0-0.1) K/uL Nucleated RBC % 0.0 /100WBC Nucleated RBCs # 0 K/uL Sodium 135 L (136-145) mmol/L Potassium 4.4 (3.5-5.1) mmol/L Chloride 100 (98-107) mmol/L Carbon Dioxide 34.7 H (21.0-32.0) mmol/L BUN 19 H (7.0-18.0) mg/dL Creatinine 0.5 L (0.6-1.0) mg/dL Est Cr Clr Drug Dosing 116.21 mL/min Estimated GFR (MDRD) > 60.0 ml/min Glucose 180 H (74-106) mg/dL Calcium 8.2 L (8.5-10.1) mg/dL Total Bilirubin 0.2 (0.2-1.0) mg/dL AST 12 L (15-37) IU/L ALT 11 L (14-63) IU/L Alkaline Phosphatase 67 (46-116) U/L Total Protein 5.0 L (6.4-8.2) g/dL Albumin 2.0 L (3.4-5.0) g/dL Globulin 3.0 (2.6-4.0) g/dL Albumin/Globulin Ratio 0.7 L (0.9-1.6) Med Orders - Current: Current Medications Acetaminophen (Tylenol) 650 mg PO Q4H PRN PRN Reason: Pain (Mild 1-3)/fever Last Admin: 04/03/18 22:37 Dose: 650 mg Albuterol/Ipratropium (Duoneb 3.0-0.5 Mg/3 Ml) 3 ml NEB Q4HRRT [facility] Last Admin: 04/06/18 06:11 Dose: 3 ml Divalproex Sodium (Depakote) 500 mg PO 0800,1400,2200 [facility] Last Admin: 04/06/18 08:39 Dose: 500 mg Enoxaparin Sodium (Lovenox) 40 mg SUBCUT Q24H [facility] Last Admin: 04/05/18 17:16 Dose: Not Given Escitalopram Oxalate (Lexapro) 20 mg PO DAILY [facility] Last Admin: 04/06/18 08:40 Dose: 20 mg Azithromycin 500 mg/ Sodium (Chloride) 250 mls @ 250 mls/hr IV Q24H [facility] Last Admin: 04/05/18 16:44 Dose: 250 mls/hr Ceftriaxone Sodium/Dextrose 1 (gm/ Premix) 50 mls @ 100 mls/hr IV Q24H [facility] Last Admin: 04/05/18 17:58 Dose: 100 mls/hr Levothyroxine Sodium (Levothyroxine) 75 mcg PO ACBREAKFAST [facility] Last Admin: 04/06/18 06:42 Dose: 75 mcg Methylprednisolone Sodium Succinate (Solu-Medrol) 125 mg IVPUSH Q6H [facility] Last Admin: 04/06/18 06:42 Dose: 125 mg Ondansetron HCl (Zofran) 4 mg IVPUSH Q4H PRN PRN Reason: Nausea/Vomiting Fluticasone Furoate [Arnuity Ellipta] 1 Puff 1 each INH DAILY [facility] Last Admin: 04/05/18 08:38 Dose: Not Given Umeclidinium Brm/ (Vilanterol Tr 1 Puff) 1 each INH DAILY [facility] Last Admin: 04/05/18 08:39 Dose: Not Given Doxylamine Succinate (Unisom) 25mg Ptom 1 each PO BEDTIME PRN PRN Reason: Sleep Last Admin: 04/05/18 23:35 Dose: 1 each Polyethylene Glycol (Miralax) 17 gm PO DAILY [facility] Last Admin: 04/06/18 08:40 Dose: Not Given Sodium Chloride (Saline Flush) 10 ml FLUSH ASDIRECTED PRN PRN Reason: Keep Vein Open Last Admin: 04/01/18 11:14 Dose: 10 ml Sodium Chloride (Saline Flush) 2.5 ml FLUSH ASDIRECTED PRN PRN Reason: Keep Vein Open Last Admin: 04/01/18 11:13 Dose: 2.5 ml Sodium Chloride (Saline Flush) 10 ml FLUSH ASDIRECTED PRN PRN Reason: Keep Vein Open Sodium Chloride (Saline Flush) 2.5 ml FLUSH ASDIRECTED PRN PRN Reason: Keep Vein Open Discontinued Medications Albuterol/Ipratropium (Duoneb 3.0-0.5 Mg/3 Ml) 3 ml NEB ONETIME ONE Stop: 04/01/18 10:54 Last Admin: 04/01/18 11:13 Dose: 3 ml Albuterol/Ipratropium (Duoneb 3.0-0.5 Mg/3 Ml) 3 ml NEB ONETIME ONE Stop: 04/01/18 11:24 Last Admin: 04/01/18 11:29 Dose: 3 ml Aspirin (Aspirin) 324 mg PO ONETIME ONE Stop: 04/01/18 11:22 Last Admin: 04/01/18 11:53 Dose: 324 mg Divalproex Sodium (Divalproex Sodium) 250 mg PO TID [facility] Last Admin: 04/01/18 16:35 Dose: Not Given Divalproex Sodium (Depakote) 500 mg PO 04/01/18@1630 RADHA Stop: 04/01/18 16:31 Last Admin: 04/01/18 16:50 Dose: Not Given Divalproex Sodium (Depakote) 500 mg PO ONETIME ONE Stop: 04/01/18 16:46 Last Admin: 04/01/18 16:51 Dose: 500 mg Divalproex Sodium (Depakote Er) Confirm Administered Dose 500 mg .ROUTE .STK- MED ONE Stop: 04/01/18 22:11 Last Admin: 04/01/18 22:25 Dose: Not Given Enoxaparin Sodium (Lovenox) 40 mg SUBCUT Q24H [facility] Last Admin: 04/01/18 16:34 Dose: Not Given Azithromycin 500 mg/ Sodium (Chloride) 250 mls @ 250 mls/hr IV Q24H [facility] Last Admin: 04/01/18 16:34 Dose: Not Given Azithromycin 500 mg/ Sodium (Chloride) 250 mls @ 250 mls/hr IV Q24H [facility] Ceftriaxone Sodium 1 gm/ (Sodium Chloride) 50 mls @ 100 mls/hr IV Q24H [facility] Last Admin: 04/01/18 19:03 Dose: 100 mls/hr Ceftriaxone Sodium/Dextrose (Rocephin In Dextrose,Iso-Osm 1 Gm/50 Ml) Confirm Administered Dose 50 mls @ as directed .ROUTE .STK-MED ONE Stop: 04/01/18 18:48 Last Admin: 04/01/18 19:35 Dose: Not Given Iopamidol (Isovue Multipack-370 (76%)) 50 ml IVPUSH ONETIME STA Stop: 04/01/18 13:23 Last Admin: 04/01/18 13:23 Dose: 50 ml Methylprednisolone Sodium Succinate (Solu-Medrol) 125 mg IVPUSH ONETIME ONE Stop: 04/01/18 10:58 Last Admin: 04/01/18 11:13 Dose: 125 mg Methylprednisolone Sodium Succinate (Solu-Medrol) 125 mg IVPUSH Q6H [facility] Last Admin: 04/01/18 15:44 Dose: Not Given Morphine Sulfate (Morphine) 2 mg IVPUSH Q2H PRN PRN Reason: Pain (severe 7-10) Stop: 04/02/18 12:55 Morphine Sulfate (Morphine) 2 mg IVPUSH Q2H PRN PRN Reason: Pain (severe 7-10) Stop: 04/02/18 12:55 Doxylamine Succinate (Unisom) 25mg Ptom 1 each PO BEDTIME PRN PRN Reason: Sleep Last Admin: 04/03/18 22:37 Dose: 1 each Levothyroxine 75 Mcg 1 each PO ACBREAKFAST [facility] Last Admin: 04/02/18 09:25 Dose: Not Given Divalproex Sodium Delayed-Release 500 Mg Tab.Cr 1 each PO 0800,1400,2200 [facility] Last Admin: 04/01/18 22:23 Dose: 1 each - Exam Quality Assessment: Supplemental Oxygen General: Alert, Oriented, Cooperative Lungs: Decreased Breath Sounds Cardiovascular: Regular Rate, Regular Rhythm - Problem List Review Problem List Initiated/Reviewed/Updated: Yes - Plan Plan:: This is a 57-year-old female with a history of COPD being admitted due to tachypnea, hypoxia, tachycardia likely in the setting of acute COPD exacerbation. #1. Acute hypoxic respiratory failure secondary to acute exacerbation of COPD with possible community-acquired pneumonia infection -Patient placed on O2, Solu-Medrol, duo nebs scheduled, azithromycin for symptomatic management of her acute COPD exacerbation and community-acquired pneumonia -Sputum cultures growing normal respiratory khushi -Still requiring 4 L of O2 support secondary to hypoxemia -Patient needs to have a pulmonary function testing and sleep apnea home study scheduled outpatient. She'll be given a prescription prior to discharge.
[2018-04-06] MEDS: Fluticasone Furoate [Arnuity Ellipta] 1 PUFF INH SCH (10:26)
[2018-04-06] MEDS: Umeclidinium Brm/Vilanterol Tr 1 PUFF INH SCH (10:26)
[2018-04-06] MEDS: Azithromycin 500 MG in Sodium Chloride 0.9% 250 ML IV SCH (16:48)
[2018-04-06] MEDS: Enoxaparin 40 MG/0.4 ML Syringe SUBCUT SCH (16:48)
[2018-04-06] MEDS: cefTRIAXone 1 GM in Premix Bag 1 BAG IV SCH (18:05)
[2018-04-06] MEDS: DOXYLAMINE SUCCINATE 25 MG PO PRN (22:38)
[2018-04-07] MEDS: Albuterol/Ipratropium 3.0-0.5 MG/3 ML Neb Soln NEB SCH ×3 (02:00→09:57)
[2018-04-07] MEDS: LEVOTHYROXINE 75 MCG PO SCH (06:33)
[2018-04-07] MEDS: methylPREDNISolone Sodium Succinate 125 MG/2 ML SDV IVPUSH SCH ×2 (06:33→12:47)
[2018-04-07 06:38] LABS: CHLORIDE,CL 99 mmol/L (98-107); SODIUM,NA 134 mmol/L (136-145)
[2018-04-07] MEDS: Divalproex Sodium Delayed-Release 500 MG Tab.CR PO SCH (08:34)
[2018-04-07] MEDS: Escitalopram 10 MG Tab PO SCH (08:34)
--- NOTE | 2018-04-07 09:25 | PCM.DCSUM1 ---
Discharge Summary - Hospital Course Diagnosis: Stroke: No Modified Mary[place] Scale: No Symptoms at All Modified Mary[place] Scale Score: 0 - Discharge Data Discharge Date: 04/07/18 Discharge Disposition: Home, Self-Care 01 Condition: Fair - Patient Summary/Data Consults: Consultations 04/01/18 12:54 Respiratory Care Assess and Treatment [CONS] Routine Hospital Course: 57 yo female admitted for COPD exacerbation and pneumonia. She presented with productive cough, wheezing and hypoxia. CT scan of chest was negative for PE and showed bilateral reticular nodular opacities. She was treated with Rocephin , azithromycin, and solumedrol. She required NC at 4 L Oxygen for most of her stay up until today. Today she is satting 88% on room air. She is requesting discharge. She is discharged home on Keflex and prednisone with supplemental home oxygen. - Patient Instructions Diet: Regular Diet as Tolerated - Discharge Plan Prescriptions/Med Rec: Albuterol Sulfate [Albuterol Sulfate Hfa] 8.5 gm IH Q4HR PRN #1 hfa.aer.ad PRN Reason: Wheezing cephALEXin [Keflex] 500 mg PO Q12HR #6 cap Escitalopram [Lexapro] 20 mg PO DAILY #30 tablet Fluticasone Furoate [Arnuity Ellipta] 1 puff INH DAILY #1 blst.w.dev predniSONE [Prednisone] 20 mg PO DAILY #3 tablet Umeclidinium Brm/Vilanterol Tr [Anoro Ellipta 62.5-25 MCG] 1 puff INH DAILY #1 inhaler Home Medications: Home Meds Calcium Carbonate [Calcium] 1 tab PO BID 04/01/18 [History] Divalproex Sodium [Depakote] 500 mg PO TID 04/01/18 [History] Levothyroxine Sodium [Levoxyl] 75 mcg PO ACBREAKFAST 04/01/18 [History] Multivitamins [Tab-A-Macho] 1 tab PO DAILY 04/01/18 [History] Albuterol Sulfate [Albuterol Sulfate Hfa] 8.5 gm IH Q4HR PRN #1 hfa.aer.ad 04/07 [Rx] Escitalopram [Lexapro] 20 mg PO DAILY #30 tablet 04/07/18 [Rx] Fluticasone Furoate [Arnuity Ellipta] 1 puff INH DAILY #1 blst.w.dev 04/07/18 [ Rx] Umeclidinium Brm/Vilanterol Tr [Anoro Ellipta 62.5-25 MCG] 1 puff INH DAILY #1 inhaler 04/07/18 [Rx] cephALEXin [Keflex] 500 mg PO Q12HR #6 cap 04/07/18 [Rx] predniSONE [Prednisone] 20 mg PO DAILY #3 tablet 04/07/18 [Rx] Patient Handouts: Hypoxia Referrals: [facility] [Outside] Marnie Livingston DO [Resident] - 04/15/18 2:30 pm - Discharge Summary/Plan Comment DC Time >30 min.: No - Patient Data Vitals - Most Recent: Last Vital Signs Temp 36.4 C 04/07/18 07:27 Pulse 82 04/07/18 07:27 Resp 18 04/07/18 07:27 BP 139/77 04/07/18 07:27 Pulse Ox 91 L 04/07/18 07:27 Weight - Most Recent: 61.235 kg I&O - Last 24 hours: Intake & Output 04/06/18 04/07/18 04/07/18 22:59 06:59 14:59 Intake Total 900 600 Output Total 650 250 Balance 250 350 Lab Results - Last 24 hrs: Laboratory Results - last 24 hr 04/07/18 04/07/18 Range/Units 06:10 06:10 WBC 7.50 (4.0-11.0) K/uL RBC 4.63 (4.30-5.90) M/uL Hgb 15.1 (12.0-16.0) g/dL Hct 44.7 (36.0-46.0) % MCV 96.5 (80.0-98.0) fL MCH 32.6 H (27.0-32.0) pg MCHC 33.8 (31.0-37.0) g/dL RDW Std Deviation 47.3 (28.0-62.0) fl RDW Coeff of Drew 14 (11.0-15.0) % Plt Count 112 L (150-400) K/uL MPV 11.20 (7.40-12.00) fL Add Manual Diff YES Neutrophils % (Manual) 80 (48.0-80.0) % Band Neutrophils % 3 % Lymphocytes % (Manual) 11 L (16.0-40.0) % Monocytes % (Manual) 4 (0.0-15.0) % Nucleated RBC % 0.0 /100WBC Absolute Seg Neuts 6.0 H (1.4-5.7) Band Neutrophils # 0.2 Lymphocytes # (Manual) 0.8 (0.6-2.4) Monocytes # (Manual) 0.3 (0.0-0.8) Nucleated RBCs # 0 K/uL Sodium 134 L (136-145) mmol/L Potassium 5.1 (3.5-5.1) mmol/L Chloride 99 (98-107) mmol/L Carbon Dioxide 33.8 H (21.0-32.0) mmol/L BUN 21 H (7.0-18.0) mg/dL Creatinine 0.4 L (0.6-1.0) mg/dL Est Cr Clr Drug Dosing 145.26 mL/min Estimated GFR (MDRD) > 60.0 ml/min Glucose 146 H (74-106) mg/dL Calcium 8.3 L (8.5-10.1) mg/dL Med Orders - Current: Current Medications Acetaminophen (Tylenol) 650 mg PO Q4H PRN PRN Reason: Pain (Mild 1-3)/fever Last Admin: 04/03/18 22:37 Dose: 650 mg Albuterol/Ipratropium (Duoneb 3.0-0.5 Mg/3 Ml) 3 ml NEB Q4HRRT [facility] Last Admin: 04/07/18 06:01 Dose: 3 ml Divalproex Sodium (Depakote) 500 mg PO 0800,1400,2200 [facility] Last Admin: 04/07/18 08:34 Dose: 500 mg Enoxaparin Sodium (Lovenox) 40 mg SUBCUT Q24H [facility] Last Admin: 04/06/18 16:48 Dose: 40 mg Escitalopram Oxalate (Lexapro) 20 mg PO DAILY [facility] Last Admin: 04/07/18 08:34 Dose: 20 mg Azithromycin 500 mg/ Sodium (Chloride) 250 mls @ 250 mls/hr IV Q24H [facility] Last Admin: 04/06/18 16:48 Dose: 250 mls/hr Ceftriaxone Sodium/Dextrose 1 (gm/ Premix) 50 mls @ 100 mls/hr IV Q24H [facility] Last Admin: 04/06/18 18:05 Dose: 100 mls/hr Levothyroxine Sodium (Levothyroxine) 75 mcg PO ACBREAKFAST [facility] Last Admin: 04/07/18 06:33 Dose: 75 mcg Methylprednisolone Sodium Succinate (Solu-Medrol) 125 mg IVPUSH Q6H [facility] Last Admin: 04/07/18 06:33 Dose: 125 mg Ondansetron HCl (Zofran) 4 mg IVPUSH Q4H PRN PRN Reason: Nausea/Vomiting Fluticasone Furoate [Arnuity Ellipta] 1 Puff 1 each INH DAILY [facility] Last Admin: 04/06/18 10:26 Dose: Not Given Umeclidinium Brm/ (Vilanterol Tr 1 Puff) 1 each INH DAILY [facility] Last Admin: 04/06/18 10:26 Dose: Not Given Doxylamine Succinate (Unisom) 25mg Ptom 1 each PO BEDTIME PRN PRN Reason: Sleep Last Admin: 04/06/18 22:38 Dose: 1 each Polyethylene Glycol (Miralax) 17 gm PO DAILY [facility] Last Admin: 04/06/18 08:40 Dose: Not Given Sodium Chloride (Saline Flush) 10 ml FLUSH ASDIRECTED PRN PRN Reason: Keep Vein Open Last Admin: 04/01/18 11:14 Dose: 10 ml Sodium Chloride (Saline Flush) 2.5 ml FLUSH ASDIRECTED PRN PRN Reason: Keep Vein Open Last Admin: 04/01/18 11:13 Dose: 2.5 ml Sodium Chloride (Saline Flush) 10 ml FLUSH ASDIRECTED PRN PRN Reason: Keep Vein Open Sodium Chloride (Saline Flush) 2.5 ml FLUSH ASDIRECTED PRN PRN Reason: Keep Vein Open Discontinued Medications Albuterol/Ipratropium (Duoneb 3.0-0.5 Mg/3 Ml) 3 ml NEB ONETIME ONE Stop: 04/01/18 10:54 Last Admin: 04/01/18 11:13 Dose: 3 ml Albuterol/Ipratropium (Duoneb 3.0-0.5 Mg/3 Ml) 3 ml NEB ONETIME ONE Stop: 04/01/18 11:24 Last Admin: 04/01/18 11:29 Dose: 3 ml Aspirin (Aspirin) 324 mg PO ONETIME ONE Stop: 04/01/18 11:22 Last Admin: 04/01/18 11:53 Dose: 324 mg Divalproex Sodium (Divalproex Sodium) 250 mg PO TID [facility] Last Admin: 04/01/18 16:35 Dose: Not Given Divalproex Sodium (Depakote) 500 mg PO 04/01/18@1630 RADHA Stop: 04/01/18 16:31 Last Admin: 04/01/18 16:50 Dose: Not Given Divalproex Sodium (Depakote) 500 mg PO ONETIME ONE Stop: 04/01/18 16:46 Last Admin: 04/01/18 16:51 Dose: 500 mg Divalproex Sodium (Depakote Er) Confirm Administered Dose 500 mg .ROUTE .STK- MED ONE Stop: 04/01/18 22:11 Last Admin: 04/01/18 22:25 Dose: Not Given Enoxaparin Sodium (Lovenox) 40 mg SUBCUT Q24H [facility] Last Admin: 04/01/18 16:34 Dose: Not Given Azithromycin 500 mg/ Sodium (Chloride) 250 mls @ 250 mls/hr IV Q24H [facility] Last Admin: 04/01/18 16:34 Dose: Not Given Azithromycin 500 mg/ Sodium (Chloride) 250 mls @ 250 mls/hr IV Q24H [facility] Ceftriaxone Sodium 1 gm/ (Sodium Chloride) 50 mls @ 100 mls/hr IV Q24H [facility] Last Admin: 04/01/18 19:03 Dose: 100 mls/hr Ceftriaxone Sodium/Dextrose (Rocephin In Dextrose,Iso-Osm 1 Gm/50 Ml) Confirm Administered Dose 50 mls @ as directed .ROUTE .STK-MED ONE Stop: 04/01/18 18:48 Last Admin: 04/01/18 19:35 Dose: Not Given Iopamidol (Isovue Multipack-370 (76%)) 50 ml IVPUSH ONETIME STA Stop: 04/01/18 13:23 Last Admin: 04/01/18 13:23 Dose: 50 ml Methylprednisolone Sodium Succinate (Solu-Medrol) 125 mg IVPUSH ONETIME ONE Stop: 04/01/18 10:58 Last Admin: 04/01/18 11:13 Dose: 125 mg Methylprednisolone Sodium Succinate (Solu-Medrol) 125 mg IVPUSH Q6H [facility] Last Admin: 04/01/18 15:44 Dose: Not Given Morphine Sulfate (Morphine) 2 mg IVPUSH Q2H PRN PRN Reason: Pain (severe 7-10) Stop: 04/02/18 12:55 Morphine Sulfate (Morphine) 2 mg IVPUSH Q2H PRN PRN Reason: Pain (severe 7-10) Stop: 04/02/18 12:55 Doxylamine Succinate (Unisom) 25mg Ptom 1 each PO BEDTIME PRN PRN Reason: Sleep Last Admin: 04/03/18 22:37 Dose: 1 each Levothyroxine 75 Mcg 1 each PO ACBREAKFAST [facility] Last Admin: 04/02/18 09:25 Dose: Not Given Divalproex Sodium Delayed-Release 500 Mg Tab.Cr 1 each PO 0800,1400,2200 [facility] Last Admin: 04/01/18 22:23 Dose: 1 each
[2018-04-07] MEDS: Fluticasone Furoate [Arnuity Ellipta] 1 PUFF INH SCH (09:39)
[2018-04-07] MEDS: Umeclidinium Brm/Vilanterol Tr 1 PUFF INH SCH (09:39)
[2018-04-07] MEDS: Polyethylene Glycol 3350 Powder 17 GM Packet PO SCH (09:39)
[2018-04-07 13:19] VITALS: BP 126/65
== END 2018-04-07 13:30 | disposition home or self-care (01) | DRG 140 ==
LOC: MW.ED 10:13 → MW.MS 13:17 → UNDOADMOB 13:17 → INTOOBSV 17:59 → OBSVTOIN 17:59 → MW.MS 04-03 17:59
PROVIDERS: ADMIT Internal Medicine; ATTEND Internal Medicine
DX: J44.1 Chronic obstructive pulmonary disease with (acute) exacerbation (principal); J96.01 Acute respiratory failure with hypoxia; J18.9 Pneumonia, unspecified organism; J44.0 Chronic obstructive pulmonary disease with (acute) lower respiratory infection; F17.200 Nicotine dependence, unspecified, uncomplicated; Z79.899 Other long term (current) drug therapy; Z88.2 Allergy status to sulfonamides; Z23 Encounter for immunization
CPT/HCPCS: 36415; 71045; 71045-26; 71275; 71275-26; 80048; 80053; 83880; 84484; 85025; 85379; 87070; 87205; 90686; 93005; 94640; 96365; 96366; 96367; 96374; 96375; 96376; 99283; 99285-25; A9270-GY; G0378; J0456; J0696; J1650; J2930; J7050; J7620-GY; Q9967

== ENCOUNTER 2019-02-11 15:32 | Observation (INO) | payer BC ==
[2019-02-11] MEDS ORDERED: Sodium Chloride 0.9% 10 ML Syringe FLUSH PRN (16:14)
[2019-02-11] MEDS ORDERED: Sodium Chloride 0.9% 2.5 ML Syringe FLUSH PRN (16:14)
[2019-02-11] MEDS ORDERED: Albuterol/Ipratropium 3.0-0.5 MG/3 ML Neb Soln NEB ONE ×2 (16:23→17:50)
[2019-02-11] MEDS ORDERED: methylPREDNISolone Sodium Succinate 125 MG/2 ML SDV IVPUSH ONE (16:23)
--- NOTE | 2019-02-11 16:23 | EDM.PDOC ---
ED HPI GENERAL MEDICAL PROBLEM - General Chief Complaint: Respiratory Problem Stated Complaint: COPD Time Seen by Provider: 02/11/19 16:16 Source of Information: Reports: Patient History Limitations: Reports: No Limitations - History of Present Illness INITIAL COMMENTS - FREE TEXT/NARRATIVE: HISTORY AND PHYSICAL: History of present illness: Patient is a 58-year-old female presents to the ED with complaint of COPD exacerbation. Patient was sent to the ED from the clinic. She states she normally is on 2L of O2 at home but had to increase to 4L today due to cough and shortness of breath. She denies fevers, chills, nausea vomiting. She reports some chest pain occasionally which she states typically occurs with a COPD exacerbation. She was started on lasix 3 weeks ago due to swelling in her legs. Review of systems: As per history of present illness and below otherwise all systems reviewed and negative. Past medical history: As per history of present illness and as reviewed below otherwise noncontributory. Surgical history: As per history of present illness and as reviewed below otherwise noncontributory. Social history: No reported history of drug or alcohol abuse. Family history: As per history of present illness and as reviewed below otherwise noncontributory. Physical exam: General: Patient sitting comfortably in no acute distress and nontoxic appearing HEENT: Atraumatic, normocephalic, pupils reactive, negative for conjunctival pallor or scleral icterus, mucous membranes moist, throat clear, neck supple, nontender, trachea midline. No meningeal signs. Lungs: Clear to auscultation, breath sounds equal bilaterally, chest nontender. Heart: S1S2, regular, negative for clicks, rubs, or overt murmur. Abdomen: Soft, nondistended, nontender. Negative for masses or hepatosplenomegaly. Negative for costovertebral tenderness. No rigidity, rebound , guarding. Pelvis: Stable nontender. Genitourinary: Deferred. Rectal: Deferred. Extremities: Atraumatic, negative for cords or calf pain. Neurovascular unremarkable. Neuro: Awake, alert, oriented. Cranial nerves II through XII unremarkable. Cerebellum unremarkable. Motor and sensory unremarkable throughout. Exam nonfocal. Notes: Diagnostics: CBC, CMP, troponin, BNP, EKG, CXR Therapeutics: 125mg Solumedrol DuoNeb x 2 Prescriptions: Impression: Hypoxia, COPD exacerbation, chest pain Plan: Discussed with Dr. Fan, patient admitted for observation on telemetry Definitive disposition and diagnosis as appropriate pending reevaluation and review of above. - Related Data Allergies Allergy/AdvReac Type Severity Reaction Status Date / Time Sulfa (Sulfonamide Allergy Rash Verified 02/11/19 16:06 Antibiotics) Home Meds: Home Meds Calcium Carbonate [Calcium] 1 tab PO BID 04/01/18 [History] Divalproex Sodium [Depakote] 500 mg PO TID 04/01/18 [History] Levothyroxine Sodium [Levoxyl] 75 mcg PO ACBREAKFAST 04/01/18 [History] Multivitamins [Tab-A-Macho] 1 tab PO DAILY 04/01/18 [History] Albuterol Sulfate [Albuterol Sulfate Hfa] 8.5 gm IH Q4HR PRN #1 hfa.aer.ad 04/07 [Rx] Escitalopram [Lexapro] 20 mg PO DAILY #30 tablet 04/07/18 [Rx] Fluticasone Furoate [Arnuity Ellipta] 1 puff INH DAILY #1 blst.w.dev 04/07/18 [ Rx] Umeclidinium Brm/Vilanterol Tr [Anoro Ellipta 62.5-25 MCG] 1 puff INH DAILY #1 inhaler 04/07/18 [Rx] Past Medical History HEENT History: Reports: None Cardiovascular History: Reports: None Respiratory History: Reports: COPD Gastrointestinal History: Reports: None Genitourinary History: Reports: None 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 Musculoskeletal History: Reports: Fracture Other Musculoskeletal History: ribs Neurological History: Reports: Seizure Psychiatric History: Reports: None Endocrine/Metabolic History: Reports: None Hematologic History: Reports: None Immunologic History: Reports: None Oncologic (Cancer) History: Reports: None Dermatologic History: Reports: None - Infectious Disease History Infectious Disease History: Reports: Chicken Pox, Shingles, Other (See Below) Other Infectious Disease History: childhood - Past Surgical History Head Surgeries/Procedures: Reports: None HEENT Surgical History: Reports: None Cardiovascular Surgical History: Reports: None Respiratory Surgical History: Reports: None GI Surgical History: Reports: None Female Surgical History: Reports: None Endocrine Surgical History: Reports: None Neurological Surgical History: Reports: None Musculoskeletal Surgical History: Reports: None Oncologic Surgical History: Reports: None Dermatological Surgical History: Reports: None Social & Family History - Family History Family Medical History: Noncontributory - Tobacco Use Smoking Status *Q: Former Smoker Used Tobacco, but Quit: Yes Month/Year Tobacco Last Used: 2018 - Caffeine Use Caffeine Use: Reports: Soda - Recreational Drug Use Recreational Drug Use: No ED ROS GENERAL - Review of Systems Review Of Systems: Comprehensive ROS is negative, except as noted in HPI. ED EXAM, GENERAL - Physical Exam Exam: See Below (see dictation) Course - Vital Signs Last Recorded V/S: Last Vital Signs Temp 99.5 F 02/11/19 16:04 Pulse 96 02/11/19 18:12 Resp 20 02/11/19 18:12 BP 115/60 02/11/19 16:04 Pulse Ox 91 L 02/11/19 18:40 - Orders/Labs/Meds Orders: Active Orders 24 hr Category Date Time Status EKG Documentation Completion [RC] STAT Care 02/11/19 16:28 Active RT Aerosol Therapy [RC] ASDIRECTED Care 02/11/19 16:23 Active RT Aerosol Therapy [RC] ASDIRECTED Care 02/11/19 17:50 Ordered Sodium Chloride 0.9% [Saline Flush] Med 02/11/19 16:14 Active 10 ml FLUSH ASDIRECTED PRN Sodium Chloride 0.9% [Saline Flush] Med 02/11/19 16:14 Active 2.5 ml FLUSH ASDIRECTED PRN Saline Lock Insert [OM.PC] Stat Oth 02/11/19 16:14 Ordered Medication Orders Sodium Chloride (Saline Flush) 10 ml FLUSH ASDIRECTED PRN PRN Reason: Keep Vein Open Sodium Chloride (Saline Flush) 2.5 ml FLUSH ASDIRECTED PRN PRN Reason: Keep Vein Open Labs: Laboratory Tests 02/11/19 02/11/19 02/11/19 Range/Units 16:29 16:29 16:29 WBC 4.94 (4.0-11.0) K/uL RBC 4.98 (4.30-5.90) M/uL Hgb 17.0 H (12.0-16.0) g/dL Hct 49.1 H (36.0-46.0) % MCV 98.6 H (80.0-98.0) fL MCH 34.1 H (27.0-32.0) pg MCHC 34.6 (31.0-37.0) g/dL RDW Std Deviation 49.4 (28.0-62.0) fl RDW Coeff of Drew 14 (11.0-15.0) % Plt Count 55 L (150-400) K/uL MPV 11.70 (7.40-12.00) fL Neut % (Auto) 63.6 (48.0-80.0) % Lymph % (Auto) 19.6 (16.0-40.0) % Waldo % (Auto) 16.6 H (0.0-15.0) % Eos % (Auto) 0.0 (0.0-7.0) % Baso % (Auto) 0.2 (0.0-1.5) % Neut # (Auto) 3.1 (1.4-5.7) K/uL Lymph # (Auto) 1.0 (0.6-2.4) K/uL Waldo # (Auto) 0.8 (0.0-0.8) K/uL Eos # (Auto) 0.0 (0.0-0.7) K/uL Baso # (Auto) 0.0 (0.0-0.1) K/uL Nucleated RBC % 0.0 /100WBC Nucleated RBCs # 0 K/uL Sodium 132 L (136-145) mmol/L Potassium 4.2 (3.5-5.1) mmol/L Chloride 94 L (98-107) mmol/L Carbon Dioxide 31.4 (21.0-32.0) mmol/L BUN 19 H (7.0-18.0) mg/dL Creatinine 0.8 (0.6-1.0) mg/dL Est Cr Clr Drug Dosing 71.76 mL/min Estimated GFR (MDRD) > 60.0 ml/min Glucose 98 (74-106) mg/dL Calcium 8.5 (8.5-10.1) mg/dL Total Bilirubin 0.4 (0.2-1.0) mg/dL AST 68 H (15-37) IU/L ALT 48 (14-63) IU/L Alkaline Phosphatase 49 (46-116) U/L Troponin I (0.000-0.056) ng/mL B-Natriuretic Peptide 12 (<100) PG/ML Total Protein 6.6 (6.4-8.2) g/dL Albumin 3.1 L (3.4-5.0) g/dL Globulin 3.5 (2.6-4.0) g/dL Albumin/Globulin Ratio 0.9 (0.9-1.6) 02/11/19 Range/Units 16:29 WBC (4.0-11.0) K/uL RBC (4.30-5.90) M/uL Hgb (12.0-16.0) g/dL Hct (36.0-46.0) % MCV (80.0-98.0) fL MCH (27.0-32.0) pg MCHC (31.0-37.0) g/dL RDW Std Deviation (28.0-62.0) fl RDW Coeff of Drew (11.0-15.0) % Plt Count (150-400) K/uL MPV (7.40-12.00) fL Neut % (Auto) (48.0-80.0) % Lymph % (Auto) (16.0-40.0) % Waldo % (Auto) (0.0-15.0) % Eos % (Auto) (0.0-7.0) % Baso % (Auto) (0.0-1.5) % Neut # (Auto) (1.4-5.7) K/uL Lymph # (Auto) (0.6-2.4) K/uL Waldo # (Auto) (0.0-0.8) K/uL Eos # (Auto) (0.0-0.7) K/uL Baso # (Auto) (0.0-0.1) K/uL Nucleated RBC % /100WBC Nucleated RBCs # K/uL Sodium (136-145) mmol/L Potassium (3.5-5.1) mmol/L Chloride (98-107) mmol/L Carbon Dioxide (21.0-32.0) mmol/L BUN (7.0-18.0) mg/dL Creatinine (0.6-1.0) mg/dL Est Cr Clr Drug Dosing mL/min Estimated GFR (MDRD) ml/min Glucose (74-106) mg/dL Calcium (8.5-10.1) mg/dL Total Bilirubin (0.2-1.0) mg/dL AST (15-37) IU/L ALT (14-63) IU/L Alkaline Phosphatase (46-116) U/L Troponin I < 0.050 (0.000-0.056) ng/mL B-Natriuretic Peptide (<100) PG/ML Total Protein (6.4-8.2) g/dL Albumin (3.4-5.0) g/dL Globulin (2.6-4.0) g/dL Albumin/Globulin Ratio (0.9-1.6) Meds: Medications Generic Name Dose Route Start Last Admin Trade Name Freq PRN Reason Stop Dose Admin Sodium Chloride 10 ml 02/11/19 16:14 Saline Flush FLUSH ASDIRECTED PRN Keep Vein Open Sodium Chloride 2.5 ml 02/11/19 16:14 Saline Flush FLUSH ASDIRECTED PRN Keep Vein Open Discontinued Medications Generic Name Dose Route Start Last Admin Trade Name Freq PRN Reason Stop Dose Admin Albuterol/Ipratropium 3 ml 02/11/19 16:23 02/11/19 16:37 Duoneb 3.0-0.5 Mg/3 Ml NEB 02/11/19 16:24 3 ml ONETIME ONE Administration Albuterol/Ipratropium 3 ml 02/11/19 17:50 02/11/19 17:57 Duoneb 3.0-0.5 Mg/3 Ml NEB 02/11/19 17:51 3 ml ONETIME ONE Administration Methylprednisolone Sodium Succinate 125 mg 02/11/19 16:23 02/11/19 16:43 Solu-Medrol IVPUSH 02/11/19 16:24 125 mg ONETIME ONE Administration Departure - Departure Time of Disposition: 18:45 Disposition: Refer to Observation Condition: Good Clinical Impression: Hypoxia, COPD exacerbation, Chest pain - Discharge Information Referrals: Nestor Kimball MD [Primary Care Provider] - Forms: ED Department Discharge Sepsis Event Note - Evaluation Sepsis Screening Result: No Definite Risk - Focused Exam Vital Signs: Vital Signs Temp Pulse Resp BP Pulse Ox 02/11/19 18:40 91 L 02/11/19 18:12 96 20 87 L 02/11/19 16:04 99.5 F 97 20 115/60 90 L Date Exam was Performed: 02/11/19 Time Exam was Performed: 18:44 - My Orders Last 24 Hours: My Active Orders 02/11/19 16:14 Sodium Chloride 0.9% [Saline Flush] 10 ml FLUSH ASDIRECTED PRN Sodium Chloride 0.9% [Saline Flush] 2.5 ml FLUSH ASDIRECTED PRN Saline Lock Insert [OM.PC] Stat 02/11/19 16:23 RT Aerosol Therapy [RC] ASDIRECTED 02/11/19 16:28 EKG Documentation Completion [RC] STAT 02/11/19 17:50 RT Aerosol Therapy [RC] ASDIRECTED - Assessment/Plan Last 24 Hours: My Active Orders 02/11/19 16:14 Sodium Chloride 0.9% [Saline Flush] 10 ml FLUSH ASDIRECTED PRN Sodium Chloride 0.9% [Saline Flush] 2.5 ml FLUSH ASDIRECTED PRN Saline Lock Insert [OM.PC] Stat 02/11/19 16:23 RT Aerosol Therapy [RC] ASDIRECTED 02/11/19 16:28 EKG Documentation Completion [RC] STAT 02/11/19 17:50 RT Aerosol Therapy [RC] ASDIRECTED
[2019-02-11 17:23] LABS: BLOOD UREA NITROGEN,BUN 19 mg/dL (7.0-18.0); CARBON DIOXIDE,CO2 31.4 mmol/L (21.0-32.0); CHLORIDE,CL 94 mmol/L (98-107); GLUCOSE RANDOM 98 mg/dL (74-106); POTASSIUM,K 4.2 mmol/L (3.5-5.1); SODIUM,NA 132 mmol/L (136-145)
--- NOTE | 2019-02-11 17:35 | CR ---
INDICATION: Pain, shortness of breath, COPD TECHNIQUE: Chest 2 views. COMPARISON: 01/14/2019 FINDINGS: Cardiovascular and mediastinum: Heart size and vasculature are normal in caliber and appearance. Mediastinum is within normal limits. Lungs and pleural spaces: Stable left upper lobe lingular segment opacity. No sign of infiltrate or mass. No sign of pleural effusion. No pneumothorax. Bones and soft tissues: No significant findings. IMPRESSION: Unremarkable chest. Dictated by Andrew Vazquez MD @ 02/11/2019 5:34:00 PM Dictated by: Andrew Vazquez MD @ 02/11/2019 17:34:10 (Electronically Signed)
--- NOTE | 2019-02-11 21:20 | PCM.HP.2 ---
H&P History of Present Illness - General Date of Service: 02/11/19 Admit Problem/Dx: Admission Diagnosis/Problem Admission Diagnosis/Problem Hypoxia - History of Present Illness Initial Comments - Free Text/Narative: 58 yo female with pmh of oxygen dependent COPD, Hypothyroidism, and seizure disorder who presents with two day history shortness of breath, wheezing and cough. Patient denies any fevers or chest pain. She reports smoking a few cigarettes a day. - Related Data Allergies/Adverse Reactions: Allergies Allergy/AdvReac Type Severity Reaction Status Date / Time Sulfa (Sulfonamide Allergy Rash Verified 02/11/19 20:28 Antibiotics) Home Medications: Home Meds Divalproex Sodium [Depakote] 500 mg PO TID 04/01/18 [History] Levothyroxine Sodium [Levoxyl] 75 mcg PO ACBREAKFAST 04/01/18 [History] Multivitamins [Tab-A-Macho] 1 tab PO DAILY 04/01/18 [History] Albuterol Sulfate [Albuterol Sulfate Hfa] 8.5 gm IH Q4HR PRN #1 hfa.aer.ad 04/07 [Rx] Escitalopram [Lexapro] 20 mg PO DAILY #30 tablet 04/07/18 [Rx] Fluticasone Furoate [Arnuity Ellipta] 1 puff INH DAILY #1 blst.w.dev 04/07/18 [ Rx] Umeclidinium Brm/Vilanterol Tr [Anoro Ellipta 62.5-25 MCG] 1 puff INH DAILY #1 inhaler 04/07/18 [Rx] Ascorbic Acid [Vitamin C] 1,000 tab PO DAILY 02/11/19 [History] Calcium Carb/Vitamin D3/Vit K1 [Calcium + D Soft Chewable Tab] 1,000 tab PO BID 02/11/19 [History] Albuterol Sulfate [Proair Hfa] 8.5 gm INH Q4HR PRN 02/12/19 [History] Past Medical History HEENT History: Reports: None Cardiovascular History: Reports: None Respiratory History: Reports: COPD Gastrointestinal History: Reports: None Genitourinary History: Reports: None 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 Musculoskeletal History: Reports: Fracture Other Musculoskeletal History: ribs Neurological History: Reports: Seizure Psychiatric History: Reports: None Endocrine/Metabolic History: Reports: None Hematologic History: Reports: None Immunologic History: Reports: None Oncologic (Cancer) History: Reports: None Dermatologic History: Reports: None - Infectious Disease History Infectious Disease History: Reports: Chicken Pox, Shingles, Other (See Below) Other Infectious Disease History: childhood - Past Surgical History Head Surgeries/Procedures: Reports: None HEENT Surgical History: Reports: None Cardiovascular Surgical History: Reports: None Respiratory Surgical History: Reports: None GI Surgical History: Reports: None Female Surgical History: Reports: None Endocrine Surgical History: Reports: None Neurological Surgical History: Reports: None Musculoskeletal Surgical History: Reports: None Oncologic Surgical History: Reports: None Dermatological Surgical History: Reports: None Social & Family History - Family History Family Medical History: Noncontributory - Tobacco Use Smoking Status *Q: Former Smoker Used Tobacco, but Quit: Yes Month/Year Tobacco Last Used: 2018 - Caffeine Use Caffeine Use: Reports: Soda - Recreational Drug Use Recreational Drug Use: No H&P Review of Systems - Review of Systems: Review Of Systems: Comprehensive ROS is negative, except as noted in HPI. Exam - Exam Exam: See Below - Vital Signs Vital Signs: Last Vital Signs Temp 36.6 C 02/11/19 20:05 Pulse 91 02/11/19 20:05 Resp 20 02/11/19 20:05 BP 108/65 02/11/19 20:05 Pulse Ox 87 L 02/11/19 20:05 Weight: 65.317 kg - Exam General: Alert, Oriented HEENT: Mucosa Moist & [place] Lungs: Clear to Auscultation, Normal Respiratory Effort, Wheezing Cardiovascular: Regular Rate, Regular Rhythm GI/Abdominal Exam: Normal Bowel Sounds, Soft, Non-Tender Extremities: Non-Tender, No Pedal Edema Skin: Warm, Dry, Intact - Patient Data Lab Results Last 24 hrs: Laboratory Results - last 24 hr 02/11/19 02/11/19 02/11/19 Range/Units 16:29 16:29 16:29 WBC 4.94 (4.0-11.0) K/uL RBC 4.98 (4.30-5.90) M/uL Hgb 17.0 H (12.0-16.0) g/dL Hct 49.1 H (36.0-46.0) % MCV 98.6 H (80.0-98.0) fL MCH 34.1 H (27.0-32.0) pg MCHC 34.6 (31.0-37.0) g/dL RDW Std Deviation 49.4 (28.0-62.0) fl RDW Coeff of Drew 14 (11.0-15.0) % Plt Count 55 L (150-400) K/uL MPV 11.70 (7.40-12.00) fL Neut % (Auto) 63.6 (48.0-80.0) % Lymph % (Auto) 19.6 (16.0-40.0) % Gilliam % (Auto) 16.6 H (0.0-15.0) % Eos % (Auto) 0.0 (0.0-7.0) % Baso % (Auto) 0.2 (0.0-1.5) % Neut # (Auto) 3.1 (1.4-5.7) K/uL Lymph # (Auto) 1.0 (0.6-2.4) K/uL Gilliam # (Auto) 0.8 (0.0-0.8) K/uL Eos # (Auto) 0.0 (0.0-0.7) K/uL Baso # (Auto) 0.0 (0.0-0.1) K/uL Nucleated RBC % 0.0 /100WBC Nucleated RBCs # 0 K/uL Sodium 132 L (136-145) mmol/L Potassium 4.2 (3.5-5.1) mmol/L Chloride 94 L (98-107) mmol/L Carbon Dioxide 31.4 (21.0-32.0) mmol/L BUN 19 H (7.0-18.0) mg/dL Creatinine 0.8 (0.6-1.0) mg/dL Est Cr Clr Drug Dosing 71.76 mL/min Estimated GFR (MDRD) > 60.0 ml/min Glucose 98 (74-106) mg/dL Calcium 8.5 (8.5-10.1) mg/dL Total Bilirubin 0.4 (0.2-1.0) mg/dL AST 68 H (15-37) IU/L ALT 48 (14-63) IU/L Alkaline Phosphatase 49 (46-116) U/L Troponin I (0.000-0.056) ng/mL B-Natriuretic Peptide 12 (<100) PG/ML Total Protein 6.6 (6.4-8.2) g/dL Albumin 3.1 L (3.4-5.0) g/dL Globulin 3.5 (2.6-4.0) g/dL Albumin/Globulin Ratio 0.9 (0.9-1.6) 02/11/19 Range/Units 16:29 WBC (4.0-11.0) K/uL RBC (4.30-5.90) M/uL Hgb (12.0-16.0) g/dL Hct (36.0-46.0) % MCV (80.0-98.0) fL MCH (27.0-32.0) pg MCHC (31.0-37.0) g/dL RDW Std Deviation (28.0-62.0) fl RDW Coeff of Drew (11.0-15.0) % Plt Count (150-400) K/uL MPV (7.40-12.00) fL Neut % (Auto) (48.0-80.0) % Lymph % (Auto) (16.0-40.0) % Gilliam % (Auto) (0.0-15.0) % Eos % (Auto) (0.0-7.0) % Baso % (Auto) (0.0-1.5) % Neut # (Auto) (1.4-5.7) K/uL Lymph # (Auto) (0.6-2.4) K/uL Gilliam # (Auto) (0.0-0.8) K/uL Eos # (Auto) (0.0-0.7) K/uL Baso # (Auto) (0.0-0.1) K/uL Nucleated RBC % /100WBC Nucleated RBCs # K/uL Sodium (136-145) mmol/L Potassium (3.5-5.1) mmol/L Chloride (98-107) mmol/L Carbon Dioxide (21.0-32.0) mmol/L BUN (7.0-18.0) mg/dL Creatinine (0.6-1.0) mg/dL Est Cr Clr Drug Dosing mL/min Estimated GFR (MDRD) ml/min Glucose (74-106) mg/dL Calcium (8.5-10.1) mg/dL Total Bilirubin (0.2-1.0) mg/dL AST (15-37) IU/L ALT (14-63) IU/L Alkaline Phosphatase (46-116) U/L Troponin I < 0.050 (0.000-0.056) ng/mL B-Natriuretic Peptide (<100) PG/ML Total Protein (6.4-8.2) g/dL Albumin (3.4-5.0) g/dL Globulin (2.6-4.0) g/dL Albumin/Globulin Ratio (0.9-1.6) Result Diagrams: 02/12/19 06:10 02/12/19 06:10 Chu Results Last 24 hrs: Microbiology 02/11/19 16:29 Influenza Type A Antigen Screen - Final Nasopharyngeal Swab NEGATIVE INFLUENZA A VIRUS AG REFERENCE RANGE: NEGATIVE Influenza Type B Antigen Screen - Final NEGATIVE INFLUENZA B VIRUS AG REFERENCE RANGE: NEGATIVE Sepsis Event Note - Evaluation Sepsis Screening Result: No Definite Risk - Focused Exam Vital Signs: Vital Signs Temp Pulse Resp BP Pulse Ox 02/11/19 20:05 36.6 C 91 20 108/65 87 L 02/11/19 18:58 107/63 02/11/19 18:54 36.4 C 95 20 88 L 02/11/19 18:40 91 L 02/11/19 18:12 96 20 87 L 02/11/19 16:04 37.5 C 97 20 115/60 90 L Date Exam was Performed: 02/12/19 Time Exam was Performed: 11:53 Problem List Initiated/Reviewed/Updated: Yes Orders Last 24hrs: Active Orders 24 hr Category Date Time Status Admission Status [Patient Status] [ADT] Stat ADT 02/11/19 18:46 Active Antiembolic Devices [RC] PER UNIT ROUTINE Care 02/11/19 21:14 Ordered EKG Documentation Completion [RC] STAT Care 02/11/19 16:28 Active Oxygen Therapy [RC] PRN Care 02/11/19 21:14 Ordered RT Aerosol Therapy [RC] ASDIRECTED Care 02/11/19 16:23 Active RT Aerosol Therapy [RC] ASDIRECTED Care 02/11/19 17:50 Active RT Aerosol Therapy [RC] ASDIRECTED Care 02/11/19 21:14 Ordered Up ad Ana [RC] ASDIRECTED Care 02/11/19 21:13 Ordered VTE/DVT Education [RC] PER UNIT ROUTINE Care 02/11/19 21:14 Ordered Vital Signs [RC] Q4H Care 02/11/19 21:14 Ordered Regular Diet [DIET] Diet 02/11/19 Breakfast Ordered BASIC METABOLIC PANEL,BMP [CHEM] AM Lab 02/12/19 05:11 Ordered CBC WITH AUTO DIFF [HEME] AM Lab 02/12/19 05:11 Ordered Albuterol/Ipratropium [DuoNeb 3.0-0.5 MG/3 ML] Med 02/12/19 00:00 Ordered 3 ml NEB Q6HRRT Divalproex Sodium [Depakote] Med 02/11/19 22:00 Ordered 500 mg PO TID Escitalopram Med 02/12/19 09:00 Ordered 20 mg PO DAILY Levofloxacin/Dextrose 5%-Water [Levaquin in D5W 750 MG/ Med 02/11/19 21:15 Ordered 150 ML] 750 mg Premix Bag 1 bag IV Q24H Levothyroxine Med 02/12/19 07:30 Ordered 75 mcg PO ACBREAKFAST Sodium Chloride 0.9% [Saline Flush] Med 02/11/19 16:14 Active 10 ml FLUSH ASDIRECTED PRN Sodium Chloride 0.9% [Saline Flush] Med 02/11/19 16:14 Active 2.5 ml FLUSH ASDIRECTED PRN Umeclidinium Brm/Vilanterol Tr Med 02/12/19 09:00 Ordered 1 puff INH DAILY methylPREDNISolone Sod Succ [Solu-MEDROL] Med 02/12/19 09:00 Ordered 125 mg IVPUSH DAILY Saline Lock Insert [OM.PC] Stat Oth 02/11/19 16:14 Ordered Sequential Compression Device [OM.PC] Per Unit Routine Oth 02/11/19 21:14 Ordered Resuscitation Status Routine Resus Stat 02/11/19 21:13 Ordered Medication Orders Albuterol/Ipratropium (Duoneb 3.0-0.5 Mg/3 Ml) 3 ml NEB Q6HRRT RADHA Divalproex Sodium (Depakote) 500 mg PO TID RADHA Levofloxacin/Dextrose 750 mg/ (Premix) 150 mls @ 100 mls/hr IV Q24H RADHA Levothyroxine Sodium (Levothyroxine) 75 mcg PO ACBREAKFAST RADHA Methylprednisolone Sodium Succinate (Solu-Medrol) 125 mg IVPUSH DAILY RADHA Non-Formulary Medication (Escitalopram) 20 mg PO DAILY RADHA Non-Formulary Medication (Umeclidinium Brm/Vilanterol Tr) 1 puff INH DAILY [facility] Sodium Chloride (Saline Flush) 10 ml FLUSH ASDIRECTED PRN PRN Reason: Keep Vein Open Sodium Chloride (Saline Flush) 2.5 ml FLUSH ASDIRECTED PRN PRN Reason: Keep Vein Open Assessment/Plan Comment:: 58 yo female admitted with COPD exacerbation. We will treat with Solumol, duonebs and Levaquin.
[2019-02-11] MEDS: Divalproex Sodium Delayed-Release 500 MG Tab.CR PO SCH ×2 (22:45→23:04)
[2019-02-11] MEDS: Levofloxacin/Dextrose 5%-Water 750 MG in Premix Bag 1 BAG IV SCH (22:45)
[2019-02-11] MEDS: Albuterol/Ipratropium 3.0-0.5 MG/3 ML Neb Soln NEB SCH (23:24)
[2019-02-12] MEDS: Albuterol/Ipratropium 3.0-0.5 MG/3 ML Neb Soln NEB SCH (06:02)
[2019-02-12 06:35] LABS: BLOOD UREA NITROGEN,BUN 16 mg/dL (7.0-18.0); CARBON DIOXIDE,CO2 35.4 mmol/L (21.0-32.0); CHLORIDE,CL 95 mmol/L (98-107); GLUCOSE RANDOM 147 mg/dL (74-106); POTASSIUM,K 4.4 mmol/L (3.5-5.1); SODIUM,NA 132 mmol/L (136-145)
[2019-02-12] MEDS: Levothyroxine 75 MCG Tab PO SCH (06:45)
[2019-02-12] MEDS: Divalproex Sodium Delayed-Release 500 MG Tab.CR PO SCH ×3 (06:45→21:14)
[2019-02-12] MEDS: Escitalopram 10 MG Tab PO SCH (08:23)
[2019-02-12] MEDS: methylPREDNISolone Sodium Succinate 125 MG/2 ML SDV IVPUSH SCH (08:23)
[2019-02-12] MEDS: Umeclidinium Brm/Vilanterol Tr 1 PUFF INH SCH (09:12)
[2019-02-12] MEDS ORDERED: FLU Vacc QS2019-20(6MOS+)/PF 60 MCG/0.5 ML SYRINGE IM ONE (10:00)
[2019-02-12] MEDS ORDERED: Albuterol/Ipratropium 3.0-0.5 MG/3 ML Neb Soln NEB PRN (11:52)
--- NOTE | 2019-02-12 11:53 | PCM.PN ---
- General Info Date of Service: 02/12/19 - Review of Systems Systems Review Comment:: feeling a little better, still reports shortness of breath - Patient Data Vitals - Most Recent: Last Vital Signs Temp 36.6 C 02/12/19 07:15 Pulse 76 02/12/19 07:15 Resp 20 02/12/19 07:15 BP 103/63 02/12/19 07:15 Pulse Ox 92 L 02/12/19 07:15 Weight - Most Recent: 65.317 kg I&O - Last 24 Hours: Intake & Output 02/11/19 02/12/19 02/12/19 22:59 06:59 14:59 Intake Total 943 Output Total 600 Balance 343 Lab Results Last 24 Hours: Laboratory Results - last 24 hr 02/11/19 02/11/19 02/11/19 Range/Units 16:29 16:29 16:29 WBC 4.94 (4.0-11.0) K/uL RBC 4.98 (4.30-5.90) M/uL Hgb 17.0 H (12.0-16.0) g/dL Hct 49.1 H (36.0-46.0) % MCV 98.6 H (80.0-98.0) fL MCH 34.1 H (27.0-32.0) pg MCHC 34.6 (31.0-37.0) g/dL RDW Std Deviation 49.4 (28.0-62.0) fl RDW Coeff of Drew 14 (11.0-15.0) % Plt Count 55 L (150-400) K/uL MPV 11.70 (7.40-12.00) fL Neut % (Auto) 63.6 (48.0-80.0) % Lymph % (Auto) 19.6 (16.0-40.0) % [place] % (Auto) 16.6 H (0.0-15.0) % Eos % (Auto) 0.0 (0.0-7.0) % Baso % (Auto) 0.2 (0.0-1.5) % Neut # (Auto) 3.1 (1.4-5.7) K/uL Lymph # (Auto) 1.0 (0.6-2.4) K/uL [place] # (Auto) 0.8 (0.0-0.8) K/uL Eos # (Auto) 0.0 (0.0-0.7) K/uL Baso # (Auto) 0.0 (0.0-0.1) K/uL Nucleated RBC % 0.0 /100WBC Nucleated RBCs # 0 K/uL Sodium 132 L (136-145) mmol/L Potassium 4.2 (3.5-5.1) mmol/L Chloride 94 L (98-107) mmol/L Carbon Dioxide 31.4 (21.0-32.0) mmol/L BUN 19 H (7.0-18.0) mg/dL Creatinine 0.8 (0.6-1.0) mg/dL Est Cr Clr Drug Dosing 71.76 mL/min Estimated GFR (MDRD) > 60.0 ml/min Glucose 98 (74-106) mg/dL Calcium 8.5 (8.5-10.1) mg/dL Total Bilirubin 0.4 (0.2-1.0) mg/dL AST 68 H (15-37) IU/L ALT 48 (14-63) IU/L Alkaline Phosphatase 49 (46-116) U/L Troponin I (0.000-0.056) ng/mL B-Natriuretic Peptide 12 (<100) PG/ML Total Protein 6.6 (6.4-8.2) g/dL Albumin 3.1 L (3.4-5.0) g/dL Globulin 3.5 (2.6-4.0) g/dL Albumin/Globulin Ratio 0.9 (0.9-1.6) 02/11/19 02/12/19 02/12/19 Range/Units 16:29 06:10 06:10 WBC 2.61 L (4.0-11.0) K/uL RBC 4.42 (4.30-5.90) M/uL Hgb 14.6 (12.0-16.0) g/dL Hct 42.3 (36.0-46.0) % MCV 95.7 (80.0-98.0) fL MCH 33.0 H (27.0-32.0) pg MCHC 34.5 (31.0-37.0) g/dL RDW Std Deviation 45.9 (28.0-62.0) fl RDW Coeff of Drew 13 (11.0-15.0) % Plt Count 52 L (150-400) K/uL MPV 11.20 (7.40-12.00) fL Neut % (Auto) 57.1 (48.0-80.0) % Lymph % (Auto) 26.8 (16.0-40.0) % [place] % (Auto) 15.7 H (0.0-15.0) % Eos % (Auto) 0.0 (0.0-7.0) % Baso % (Auto) 0.4 (0.0-1.5) % Neut # (Auto) 1.5 (1.4-5.7) K/uL Lymph # (Auto) 0.7 (0.6-2.4) K/uL [place] # (Auto) 0.4 (0.0-0.8) K/uL Eos # (Auto) 0.0 (0.0-0.7) K/uL Baso # (Auto) 0.0 (0.0-0.1) K/uL Nucleated RBC % 0.0 /100WBC Nucleated RBCs # 0 K/uL Sodium 132 L (136-145) mmol/L Potassium 4.4 (3.5-5.1) mmol/L Chloride 95 L (98-107) mmol/L Carbon Dioxide 35.4 H (21.0-32.0) mmol/L BUN 16 (7.0-18.0) mg/dL Creatinine 0.6 (0.6-1.0) mg/dL Est Cr Clr Drug Dosing 95.68 mL/min Estimated GFR (MDRD) > 60.0 ml/min Glucose 147 H (74-106) mg/dL Calcium 8.3 L (8.5-10.1) mg/dL Total Bilirubin (0.2-1.0) mg/dL AST (15-37) IU/L ALT (14-63) IU/L Alkaline Phosphatase (46-116) U/L Troponin I < 0.050 (0.000-0.056) ng/mL B-Natriuretic Peptide (<100) PG/ML Total Protein (6.4-8.2) g/dL Albumin (3.4-5.0) g/dL Globulin (2.6-4.0) g/dL Albumin/Globulin Ratio (0.9-1.6) Chu Results Last 24 Hours: Microbiology 02/11/19 16:29 Influenza Type A Antigen Screen - Final Nasopharyngeal Swab NEGATIVE INFLUENZA A VIRUS AG REFERENCE RANGE: NEGATIVE Influenza Type B Antigen Screen - Final NEGATIVE INFLUENZA B VIRUS AG REFERENCE RANGE: NEGATIVE Med Orders - Current: Current Medications Divalproex Sodium (Depakote) 500 mg PO TID [facility] Last Admin: 02/12/19 06:45 Dose: 500 mg Escitalopram Oxalate (Lexapro) 20 mg PO DAILY [facility] Last Admin: 02/12/19 08:23 Dose: 20 mg Levofloxacin/Dextrose 750 mg/ (Premix) 150 mls @ 100 mls/hr IV Q24H [facility] Last Admin: 02/11/19 22:45 Dose: 100 mls/hr Levothyroxine Sodium (Levothyroxine) 75 mcg PO ACBREAKFAST [facility] Last Admin: 02/12/19 06:45 Dose: 75 mcg Methylprednisolone Sodium Succinate (Solu-Medrol) 125 mg IVPUSH DAILY [facility] Last Admin: 02/12/19 08:23 Dose: 125 mg Umeclidinium Brm/ (Vilanterol Tr 1 Puff) 1 each INH DAILY [facility] Last Admin: 02/12/19 09:12 Dose: Not Given Sodium Chloride (Saline Flush) 10 ml FLUSH ASDIRECTED PRN PRN Reason: Keep Vein Open Sodium Chloride (Saline Flush) 2.5 ml FLUSH ASDIRECTED PRN PRN Reason: Keep Vein Open Discontinued Medications Albuterol/Ipratropium (Duoneb 3.0-0.5 Mg/3 Ml) 3 ml NEB ONETIME ONE Stop: 02/11/19 16:24 Last Admin: 02/11/19 16:37 Dose: 3 ml Albuterol/Ipratropium (Duoneb 3.0-0.5 Mg/3 Ml) 3 ml NEB ONETIME ONE Stop: 02/11/19 17:51 Last Admin: 02/11/19 17:57 Dose: 3 ml Albuterol/Ipratropium (Duoneb 3.0-0.5 Mg/3 Ml) 3 ml NEB Q6HRRT [facility] Last Admin: 02/12/19 06:02 Dose: Not Given Influenza Virus Vaccine (Pharmacy To Dose - Influenza Vaccine) 1 each IM ONETIME ONE Stop: 02/12/19 02:01 Influenza Virus Vaccine (Fluzone Quad 1904-0807 Syringe) 60 mcg IM .ONCE ONE Stop: 02/12/19 10:01 Methylprednisolone Sodium Succinate (Solu-Medrol) 125 mg IVPUSH ONETIME ONE Stop: 02/11/19 16:24 Last Admin: 02/11/19 16:43 Dose: 125 mg - Exam General: Alert, Oriented Lungs: Wheezing Cardiovascular: Regular Rate, Regular Rhythm GI/Abdominal Exam: Soft, Non-Tender Extremities: Non-Tender, No Pedal Edema Skin: Warm, Dry, Intact Neurological: No New Focal Deficit Sepsis Event Note - Evaluation Sepsis Screening Result: No Definite Risk - Focused Exam Vital Signs: Vital Signs Temp Pulse Resp BP Pulse Ox Pulse Ox 02/12/19 07:15 36.6 C 76 20 103/63 92 L 02/12/19 04:00 36.3 C 79 18 116/69 90 L 02/12/19 00:05 80 20 91 L 02/12/19 00:00 85 20 91 L 91 L 02/11/19 23:57 36.2 C 80 19 99/58 L 90 L Date Exam was Performed: 02/12/19 Time Exam was Performed: 11:52 - Problem List Review Problem List Initiated/Reviewed/Updated: Yes - My Orders Last 24 Hours: My Active Orders 02/12/19 02:01 Influenza Vaccine Charge [RC] .DISCHARGE 02/12/19 07:30 Levothyroxine 75 mcg PO ACBREAKFAST 02/12/19 09:00 Escitalopram [Lexapro] 20 mg PO DAILY Patient's Own Medication [Ptom] 1 each INH DAILY methylPREDNISolone Sod Succ [Solu-MEDROL] 125 mg IVPUSH DAILY 02/12/19 11:52 Albuterol/Ipratropium [DuoNeb 3.0-0.5 MG/3 ML] 3 ml NEB Q6HRRT PRN 02/11/19 21:13 Up ad Ana [RC] ASDIRECTED Resuscitation Status Routine 02/11/19 21:14 Antiembolic Devices [RC] PER UNIT ROUTINE Oxygen Therapy [RC] PRN RT Aerosol Therapy [RC] ASDIRECTED VTE/DVT Education [RC] PER UNIT ROUTINE Vital Signs [RC] Q4H Sequential Compression Device [OM.PC] Per Unit Routine 02/11/19 21:15 Levofloxacin/Dextrose 5%-Water [Levaquin in D5W 750 MG/150 ML] 750 mg Premix Bag 1 bag IV Q24H 02/11/19 22:00 Divalproex Sodium [Depakote] 500 mg PO TID - Plan Plan:: 58 yo female admitted with COPD exacerbation. We will continue Solumol, duonebs and Levaquin. Anticipate discharge home tomorrow.
[2019-02-12] MEDS: Levofloxacin/Dextrose 5%-Water 750 MG in Premix Bag 1 BAG IV SCH (21:14)
[2019-02-13 06:04] LABS: BLOOD UREA NITROGEN,BUN 15 mg/dL (7.0-18.0); CARBON DIOXIDE,CO2 36.4 mmol/L (21.0-32.0); CHLORIDE,CL 96 mmol/L (98-107); GLUCOSE RANDOM 103 mg/dL (74-106); POTASSIUM,K 4.5 mmol/L (3.5-5.1); SODIUM,NA 135 mmol/L (136-145)
[2019-02-13] MEDS: Divalproex Sodium Delayed-Release 500 MG Tab.CR PO SCH ×2 (06:38→14:28)
[2019-02-13] MEDS: Levothyroxine 75 MCG Tab PO SCH (06:38)
[2019-02-13] MEDS: Umeclidinium Brm/Vilanterol Tr 1 PUFF INH SCH (08:35)
[2019-02-13] MEDS: methylPREDNISolone Sodium Succinate 125 MG/2 ML SDV IVPUSH SCH (09:33)
[2019-02-13] MEDS: Escitalopram 10 MG Tab PO SCH (09:33)
--- NOTE | 2019-02-13 09:51 | PCM.DCSUM1 ---
<Lanette Davila - Last Filed: 02/13/19 11:25> Discharge Summary - Hospital Course Free Text/Narrative:: Discharge summary Admission date 02 11 2019 Discharge date February 13, 2019 Admission diagnoses: COPD exacerbation PM history: Seizure disorder Consultations: None Procedures: None Hospital course: Patient is a 58-year-old female with a significant past medical history of seizures requiring Depakote daily, and COPD presenting with acute on chronic COPD exacerbation. Patient at baseline requires 2 L of oxygen however was having increased difficulty breathing with shortness of breath at rest. On admission patient was started on Levaquin, methylprednisolone, and DuoNeb treatments every 4 hours scheduled. Patient however started to develop jitteriness and insomnia secondary to DuoNeb treatment and requested for her to be PRN. Throughout stay patient returned back to baseline of 2 L oxygen and requesting to go home stating she is feeling much better; O2 saturations had improved to greater than 88%. Tight breath sounds had resolved. Patient was discharged with remaining course of Levaquin and 3 more additional days of prednisone. Advised to follow-up with primary care in outpatient setting. Patient was also advised to discontinue use of cigarettes. Patient is ambulatory and requires home O2 portable tank. Patient understood plan Discharge condition: Stable Disposition: Home Discharge medications: Home medications plus Levaquin plus prednisone - Discharge Data Discharge Date: 02/13/19 Discharge Disposition: Home, Self-Care 01 Condition: Stable - Referral to Home Health Date of Face to Face Encounter: 02/13/19 Primary Care Physician: Nestor Esparza MD - Patient Instructions Diet: Heart Healthy Diet Notify Provider of: Fever, Increased Pain, Nausea and/or Vomiting - Discharge Plan Prescriptions/Med Rec: levoFLOXacin [Levaquin] 500 mg PO DAILY 3 Days #3 tab predniSONE [Prednisone] 40 mg PO DAILY 3 Days #6 tablet Home Medications: Home Meds Divalproex Sodium [Depakote] 500 mg PO TID 04/01/18 [History] Levothyroxine Sodium [Levoxyl] 75 mcg PO ACBREAKFAST 04/01/18 [History] Multivitamins [Tab-A-Macho] 1 tab PO DAILY 04/01/18 [History] Albuterol Sulfate [Albuterol Sulfate Hfa] 8.5 gm IH Q4HR PRN #1 hfa.aer.ad 04/07 [Rx] Escitalopram [Lexapro] 20 mg PO DAILY #30 tablet 04/07/18 [Rx] Fluticasone Furoate [Arnuity Ellipta] 1 puff INH DAILY #1 blst.w.dev 04/07/18 [ Rx] Umeclidinium Brm/Vilanterol Tr [Anoro Ellipta 62.5-25 MCG] 1 puff INH DAILY #1 inhaler 04/07/18 [Rx] Ascorbic Acid [Vitamin C] 1,000 tab PO DAILY 02/11/19 [History] Calcium Carb/Vitamin D3/Vit K1 [Calcium + D Soft Chewable Tab] 1,000 tab PO BID 02/11/19 [History] Albuterol Sulfate [Proair Hfa] 8.5 gm INH Q4HR PRN 02/12/19 [History] levoFLOXacin [Levaquin] 500 mg PO DAILY 3 Days #3 tab 02/13/19 [Rx] predniSONE [Prednisone] 40 mg PO DAILY 3 Days #6 tablet 02/13/19 [Rx] Oxygen Therapy Mode: Nasal Cannula Patient Handouts: Chronic Obstructive Pulmonary Disease Exacerbation, Easy-to- Read, Hypoxia, Nonspecific Chest Pain, [id number], Levofloxacin tablets, Prednisone tablets Referrals: [facility] [Outside] Nestor Kimball MD [Primary Care Provider] - 02/20/19 2:00 pm - Discharge Summary/Plan Comment DC Time >30 min.: No - Patient Data Vitals - Most Recent: Last Vital Signs Temp 97.7 F 02/13/19 07:10 Pulse 73 02/13/19 07:10 Resp 18 02/13/19 07:10 BP 109/83 02/13/19 07:10 Pulse Ox 89 L 02/13/19 07:10 Weight - Most Recent: 65.317 kg I&O - Last 24 hours: Intake & Output 02/12/19 02/13/19 02/13/19 22:59 06:59 14:59 Intake Total 600 400 Output Total 200 Balance 600 200 Lab Results - Last 24 hrs: Laboratory Results - last 24 hr 02/13/19 02/13/19 Range/Units 05:18 05:18 WBC 8.03 (4.0-11.0) K/uL RBC 4.51 (4.30-5.90) M/uL Hgb 14.7 (12.0-16.0) g/dL Hct 43.5 (36.0-46.0) % MCV 96.5 (80.0-98.0) fL MCH 32.6 H (27.0-32.0) pg MCHC 33.8 (31.0-37.0) g/dL RDW Std Deviation 45.4 (28.0-62.0) fl RDW Coeff of Drew 13 (11.0-15.0) % Plt Count 60 L (150-400) K/uL MPV 11.60 (7.40-12.00) fL Neut % (Auto) 74.8 (48.0-80.0) % Lymph % (Auto) 13.8 L (16.0-40.0) % [place] % (Auto) 11.3 (0.0-15.0) % Eos % (Auto) 0.0 (0.0-7.0) % Baso % (Auto) 0.1 (0.0-1.5) % Neut # (Auto) 6.0 H (1.4-5.7) K/uL Lymph # (Auto) 1.1 (0.6-2.4) K/uL [place] # (Auto) 0.9 H (0.0-0.8) K/uL Eos # (Auto) 0.0 (0.0-0.7) K/uL Baso # (Auto) 0.0 (0.0-0.1) K/uL Nucleated RBC % 0.0 /100WBC Nucleated RBCs # 0 K/uL Sodium 135 L (136-145) mmol/L Potassium 4.5 (3.5-5.1) mmol/L Chloride 96 L (98-107) mmol/L Carbon Dioxide 36.4 H (21.0-32.0) mmol/L BUN 15 (7.0-18.0) mg/dL Creatinine 0.6 (0.6-1.0) mg/dL Est Cr Clr Drug Dosing 95.68 mL/min Estimated GFR (MDRD) > 60.0 ml/min Glucose 103 (74-106) mg/dL Calcium 8.4 L (8.5-10.1) mg/dL Total Bilirubin 0.4 (0.2-1.0) mg/dL AST 23 (15-37) IU/L ALT 25 (14-63) IU/L Alkaline Phosphatase 37 L (46-116) U/L Total Protein 5.1 L (6.4-8.2) g/dL Albumin 2.4 L (3.4-5.0) g/dL Globulin 2.7 (2.6-4.0) g/dL Albumin/Globulin Ratio 0.9 (0.9-1.6) Med Orders - Current: Current Medications Albuterol/Ipratropium (Duoneb 3.0-0.5 Mg/3 Ml) 3 ml NEB Q6HRRT PRN PRN Reason: Wheezing Divalproex Sodium (Depakote) 500 mg PO TID [facility] Last Admin: 02/13/19 06:38 Dose: 500 mg Escitalopram Oxalate (Lexapro) 20 mg PO DAILY [facility] Last Admin: 02/13/19 09:33 Dose: 20 mg Levofloxacin/Dextrose 750 mg/ (Premix) 150 mls @ 100 mls/hr IV Q24H [facility] Last Admin: 02/12/19 21:14 Dose: 100 mls/hr Levothyroxine Sodium (Levothyroxine) 75 mcg PO ACBREAKFAST [facility] Last Admin: 02/13/19 06:38 Dose: 75 mcg Methylprednisolone Sodium Succinate (Solu-Medrol) 125 mg IVPUSH DAILY [facility] Last Admin: 02/13/19 09:33 Dose: 125 mg Umeclidinium Brm/ (Vilanterol Tr 1 Puff) 1 each INH DAILY [facility] Last Admin: 02/13/19 08:35 Dose: Not Given Sodium Chloride (Saline Flush) 10 ml FLUSH ASDIRECTED PRN PRN Reason: Keep Vein Open Sodium Chloride (Saline Flush) 2.5 ml FLUSH ASDIRECTED PRN PRN Reason: Keep Vein Open Discontinued Medications Albuterol/Ipratropium (Duoneb 3.0-0.5 Mg/3 Ml) 3 ml NEB ONETIME ONE Stop: 02/11/19 16:24 Last Admin: 02/11/19 16:37 Dose: 3 ml Albuterol/Ipratropium (Duoneb 3.0-0.5 Mg/3 Ml) 3 ml NEB ONETIME ONE Stop: 02/11/19 17:51 Last Admin: 02/11/19 17:57 Dose: 3 ml Albuterol/Ipratropium (Duoneb 3.0-0.5 Mg/3 Ml) 3 ml NEB Q6HRRT [facility] Last Admin: 02/12/19 06:02 Dose: Not Given Influenza Virus Vaccine (Pharmacy To Dose - Influenza Vaccine) 1 each IM ONETIME ONE Stop: 02/12/19 02:01 Influenza Virus Vaccine (Fluzone Quad Syringe) 60 mcg IM .ONCE ONE Stop: 02/12/19 10:01 Methylprednisolone Sodium Succinate (Solu-Medrol) 125 mg IVPUSH ONETIME ONE Stop: 02/11/19 16:24 Last Admin: 02/11/19 16:43 Dose: 125 mg <Dinesh Fan - Last Filed: 02/14/19 16:49> Discharge Summary - Referral to Home Health Primary Care Physician: Nestor Esparza MD - Patient Data Vitals - Most Recent: Last Vital Signs Temp 36.1 C 02/13/19 11:00 Pulse 77 02/13/19 11:00 Resp 16 02/13/19 11:00 BP 112/64 02/13/19 11:00 Pulse Ox 86 L 02/13/19 11:00 Med Orders - Current: Current Medications Discontinued Medications Albuterol/Ipratropium (Duoneb 3.0-0.5 Mg/3 Ml) 3 ml NEB ONETIME ONE Stop: 02/11/19 16:24 Last Admin: 02/11/19 16:37 Dose: 3 ml Albuterol/Ipratropium (Duoneb 3.0-0.5 Mg/3 Ml) 3 ml NEB ONETIME ONE Stop: 02/11/19 17:51 Last Admin: 02/11/19 17:57 Dose: 3 ml Albuterol/Ipratropium (Duoneb 3.0-0.5 Mg/3 Ml) 3 ml NEB Q6HRRT [facility] Last Admin: 02/12/19 06:02 Dose: Not Given Albuterol/Ipratropium (Duoneb 3.0-0.5 Mg/3 Ml) 3 ml NEB Q6HRRT PRN PRN Reason: Wheezing Divalproex Sodium (Depakote) 500 mg PO TID [facility] Last Admin: 02/13/19 14:28 Dose: Not Given Escitalopram Oxalate (Lexapro) 20 mg PO DAILY [facility] Last Admin: 02/13/19 09:33 Dose: 20 mg Levofloxacin/Dextrose 750 mg/ (Premix) 150 mls @ 100 mls/hr IV Q24H [facility] Last Admin: 02/12/19 21:14 Dose: 100 mls/hr Influenza Virus Vaccine (Pharmacy To Dose - Influenza Vaccine) 1 each IM ONETIME ONE Stop: 02/12/19 02:01 Influenza Virus Vaccine (Fluzone Quad [id number] Syringe) 60 mcg IM .ONCE ONE Stop: 02/12/19 10:01 Last Admin: 02/13/19 14:21 Dose: 60 mcg Levothyroxine Sodium (Levothyroxine) 75 mcg PO ACBREAKFAST [facility] Last Admin: 02/13/19 06:38 Dose: 75 mcg Methylprednisolone Sodium Succinate (Solu-Medrol) 125 mg IVPUSH ONETIME ONE Stop: 02/11/19 16:24 Last Admin: 02/11/19 16:43 Dose: 125 mg Methylprednisolone Sodium Succinate (Solu-Medrol) 125 mg IVPUSH DAILY [facility] Last Admin: 02/13/19 09:33 Dose: 125 mg Umeclidinium Brm/ (Vilanterol Tr 1 Puff) 1 each INH DAILY [facility] Last Admin: 02/13/19 08:35 Dose: Not Given Sodium Chloride (Saline Flush) 10 ml FLUSH ASDIRECTED PRN PRN Reason: Keep Vein Open Sodium Chloride (Saline Flush) 2.5 ml FLUSH ASDIRECTED PRN PRN Reason: Keep Vein Open - Free Text/Narrative Note: I have examined patient with resident. I have discussed findings and treatment plan with the resident. I agree with the assessment and plan as outlined in the following note.
[2019-02-13 14:13] VITALS: BP 112/64; PULSE 77
== END 2019-02-13 15:00 | disposition home or self-care (01) ==
LOC: MW.ED 15:32 → MW.MS 19:10
PROVIDERS: ADMIT Internal Medicine; ATTEND Internal Medicine
DX: J44.1 Chronic obstructive pulmonary disease with (acute) exacerbation (principal); E03.9 Hypothyroidism, unspecified; G40.909 Epilepsy, unspecified, not intractable, without status epilepticus; Z87.891 Personal history of nicotine dependence; Z79.51 Long term (current) use of inhaled steroids; Z79.899 Other long term (current) drug therapy; Z88.2 Allergy status to sulfonamides; Z99.81 Dependence on supplemental oxygen; Z23 Encounter for immunization
CPT/HCPCS: 36415; 71046; 80048; 80053; 83880; 84484; 85025; 87804; 90471; 90686; 93005; 94640; 96374; 99285; A9270; J1956; J2930; 96365; 96366; 96375; 96376; 99283; G0008; G0378; J7620-GY

== ENCOUNTER 2019-04-11 15:28 | Inpatient (IN) | payer BC ==
[2019-04-11] MEDS ORDERED: Docusate Sodium 100 MG Cap PO PRN (15:39)
[2019-04-11] MEDS ORDERED: Polyethylene Glycol 3350 Powder 17 GM Packet PO PRN (15:39)
[2019-04-11] MEDS ORDERED: Ondansetron 4 MG/2 ML SDV IVPUSH PRN (15:39)
[2019-04-11] MEDS ORDERED: Ondansetron 4 MG Tab.DIS PO PRN (15:39)
[2019-04-11] MEDS ORDERED: Acetaminophen 325 MG Tab PO PRN (15:39)
[2019-04-11] MEDS ORDERED: Nicotine 14 MG/24 Hr Patch TRDERM PRN (15:39)
[2019-04-11] MEDS ORDERED: Ibuprofen 600 MG Tab PO PRN (15:39)
[2019-04-11] MEDS ORDERED: Levalbuterol HCl 1.25 MG/3 ML Neb NEB ONE (15:44)
[2019-04-11] MEDS ORDERED: methylPREDNISolone Sodium Succinate 40 MG/1 ML SDV IVPUSH ONE (15:46)
--- NOTE | 2019-04-11 15:58 | PCM.HP.2 ---
H&P History of Present Illness - General Date of Service: 04/11/19 Admit Problem/Dx: Admission Diagnosis/Problem Admission Diagnosis/Problem COPD, Severe chronic obstructive pulmonary disease - History of Present Illness Initial Comments - Free Text/Narative: 58 y/o female with history of COPD who presented to her PCP's clinic complaining of worsening shortness of breath. Directly admitted from clinic for Acute COPD exacerbation. In patient, clinic was on 8 L NC with O2 sat 90%. Baseline home O2 is 2 L. States that for the past 1 week she has been progressively getting more short of breath. Endorses productive cough. No fevers , nausea, vomiting. No chest pain, abdominal pain, dysuria, diarrhea. No swelling. - Related Data Allergies/Adverse Reactions: Allergies Allergy/AdvReac Type Severity Reaction Status Date / Time Sulfa (Sulfonamide Allergy Rash Verified 02/11/19 20:28 Antibiotics) Home Medications: Home Meds Divalproex Sodium [Depakote] 500 mg PO TID 04/01/18 [History] Levothyroxine Sodium [Levoxyl] 75 mcg PO ACBREAKFAST 04/01/18 [History] Multivitamins [Tab-A-Macho] 1 tab PO DAILY 04/01/18 [History] Albuterol Sulfate [Albuterol Sulfate Hfa] 8.5 gm IH Q4HR PRN #1 hfa.aer.ad 04/07 [Rx] Escitalopram [Lexapro] 20 mg PO DAILY #30 tablet 04/07/18 [Rx] Fluticasone Furoate [Arnuity Ellipta] 1 puff INH DAILY #1 blst.w.dev 04/07/18 [ Rx] Umeclidinium Brm/Vilanterol Tr [Anoro Ellipta 62.5-25 MCG] 1 puff INH DAILY #1 inhaler 04/07/18 [Rx] Ascorbic Acid [Vitamin C] 1,000 tab PO DAILY 02/11/19 [History] Calcium Carb/Vitamin D3/Vit K1 [Calcium + D Soft Chewable Tab] 1,000 tab PO BID 02/11/19 [History] Albuterol Sulfate [Proair Hfa] 8.5 gm INH Q4HR PRN 02/12/19 [History] levoFLOXacin [Levaquin] 500 mg PO DAILY 3 Days #3 tab 02/13/19 [Rx] predniSONE [Prednisone] 40 mg PO DAILY 3 Days #6 tablet 02/13/19 [Rx] Past Medical History HEENT History: Reports: None Cardiovascular History: Reports: None Respiratory History: Reports: COPD Gastrointestinal History: Reports: None Genitourinary History: Reports: None [employer]ST History: Reports: Musculoskeletal History: Reports: Fracture Other Musculoskeletal History: ribs Neurological History: Reports: Seizure Psychiatric History: Reports: None Endocrine/Metabolic History: Reports: None Hematologic History: Reports: None Immunologic History: Reports: None Oncologic (Cancer) History: Reports: None Dermatologic History: Reports: None - Infectious Disease History Infectious Disease History: Reports: Chicken Pox Other Infectious Disease History: childhood - Past Surgical History Head Surgeries/Procedures: Reports: None HEENT Surgical History: Reports: None Cardiovascular Surgical History: Reports: None Respiratory Surgical History: Reports: None GI Surgical History: Reports: None Female Surgical History: Reports: None Endocrine Surgical History: Reports: None Neurological Surgical History: Reports: None Musculoskeletal Surgical History: Reports: None Oncologic Surgical History: Reports: None Dermatological Surgical History: Reports: None Social & Family History - Family History Family Medical History: Noncontributory - Caffeine Use Caffeine Use: Reports: Soda H&P Review of Systems - Review of Systems: Review Of Systems: Comprehensive ROS is negative, except as noted in HPI. Exam - Exam Exam: See Below - Vital Signs Vital Signs: Last Vital Signs Temp 36.2 C 04/11/19 15:37 Pulse 115 H 04/11/19 15:37 Resp 22 H 04/11/19 15:37 BP 96/57 L 04/11/19 15:37 Pulse Ox 88 L 04/11/19 15:37 - Exam Quality Assessment: Supplemental Oxygen General: Alert, Oriented, Cooperative HEENT: Mucosa Moist & Cale Lungs: Decreased Breath Sounds, Rhonchi, Wheezing Cardiovascular: Regular Rhythm, Tachycardia GI/Abdominal Exam: Normal Bowel Sounds, Soft, Non-Tender, No Distention Extremities: Normal Inspection, No Pedal Edema Skin: Warm, Dry Sepsis Event Note - Focused Exam Vital Signs: Vital Signs Temp Pulse Resp BP Pulse Ox 04/11/19 15:37 36.2 C 115 H 22 H 96/57 L 88 L Date Exam was Performed: 04/11/19 Time Exam was Performed: 15:53 Problem List Initiated/Reviewed/Updated: Yes Orders Last 24hrs: Active Orders 24 hr Category Date Time Status Patient Status [ADT] Routine ADT 04/11/19 15:39 Active Intake and Output [RC] QSHIFT Care 04/11/19 15:41 Active Oxygen Therapy [RC] PRN Care 04/11/19 15:39 Active RT Aerosol Therapy [RC] ASDIRECTED Care 04/11/19 15:46 Active Up ad Ana [RC] ASDIRECTED Care 04/11/19 15:39 Active VTE/DVT Education [RC] PER UNIT ROUTINE Care 04/11/19 15:39 Active Vital Signs [RC] Q4H Care 04/11/19 15:39 Active Regular Diet [DIET] Diet 04/11/19 Dinner Active Chest 1V Frontal [CR] Stat Exams 04/11/19 15:44 Ordered CBC WITH AUTO DIFF [HEME] Stat Lab 04/11/19 15:43 Ordered COMPREHENSIVE METABOLIC PN,CMP [CHEM] Stat Lab 04/11/19 15:43 Ordered Acetaminophen [Tylenol] Med 04/11/19 15:39 Ordered 650 mg PO Q4H PRN Azithromycin [Zithromax] 500 mg Med 04/11/19 16:00 Ordered Sodium Chloride 0.9% [Normal Saline (AdvBag)] 250 ml IV DAILY Docusate Sodium [Colace] Med 04/11/19 15:39 Ordered 100 mg PO BID PRN Ibuprofen [Motrin] Med 04/11/19 15:39 Ordered 600 mg PO Q6H PRN Nicotine [Habitrol] Med 04/11/19 15:39 Ordered 14 mg TRDERM DAILY PRN Ondansetron [Zofran ODT] Med 04/11/19 15:39 Ordered 4 mg PO Q4H PRN Ondansetron [Zofran] Med 04/11/19 15:39 Ordered 4 mg IVPUSH Q4H PRN levalbuterol HCL [Xopenex] Med 04/11/19 15:44 Once 1.25 mg NEB ONETIME ONE levalbuterol HCL [Xopenex] Med 04/11/19 15:45 Ordered 1.25 mg NEB Q4HRRT PRN methylPREDNISolone Sod Succ [Solu-MEDROL] Med 04/12/19 09:00 Ordered 40 mg IVPUSH DAILY methylPREDNISolone Sod Succ [Solu-MEDROL] Med 04/11/19 15:46 Once 40 mg IVPUSH ONETIME ONE polyethylene glycoL 3350 [MiraLAX] Med 04/11/19 15:39 Ordered 17 gm PO DAILY PRN Resuscitation Status Routine Resus Stat 04/11/19 15:39 Ordered Medication Orders Acetaminophen (Tylenol) 650 mg PO Q4H PRN PRN Reason: Pain (Mild 1-3)/fever Docusate Sodium (Colace) 100 mg PO BID PRN PRN Reason: Constipation Azithromycin 500 mg/ Sodium (Chloride) 250 mls @ 250 mls/hr IV DAILY RADHA Ibuprofen (Motrin) 600 mg PO Q6H PRN PRN Reason: Pain (mild 1-3) Levalbuterol HCl (Xopenex) 1.25 mg NEB ONETIME ONE Stop: 04/11/19 15:45 Levalbuterol HCl (Xopenex) 1.25 mg NEB Q4HRRT PRN PRN Reason: Wheezing Methylprednisolone Sodium Succinate (Solu-Medrol) 40 mg IVPUSH ONETIME ONE Stop: 04/11/19 15:47 Methylprednisolone Sodium Succinate (Solu-Medrol) 40 mg IVPUSH DAILY RADHA Nicotine (Habitrol) 14 mg TRDERM DAILY PRN PRN Reason: Other Ondansetron HCl (Zofran Odt) 4 mg PO Q4H PRN PRN Reason: nausea, able to take PO Ondansetron HCl (Zofran) 4 mg IVPUSH Q4H PRN PRN Reason: Nausea Polyethylene Glycol (Miralax) 17 gm PO DAILY PRN PRN Reason: Constipation Assessment/Plan Comment:: A: 1. Acute on chronic hypoxic respiratory failure P: 1. Will get labs. Continue titrating O2 as tolerated. Methylprednisolone 40 mg IV BID, Azithromycin 500 mg IV daily, Levalbuterol Nebs Q4H PRN. Will get chest xray. Will continue home meds for chronic medical issues. Dispo: 2-3 days.
--- NOTE | 2019-04-11 16:16 | CR ---
Chest: Portable view of the chest was obtained. Comparison: Prior chest x-ray of 02/11/19. Slight increased density within the right lung base is seen. Chronic increased lung markings are noted. Bony structures are unremarkable. Heart size and mediastinum are normal. Impression: 1. Slight increased density with right lung base possibly due to small area of pneumonia patient has infectious symptoms. 2. Mild chronic increased lung markings. 3. No other acute finding is seen. Diagnostic code #3 This report was dictated in [place] [employer] Time
[2019-04-11 16:33] LABS: BLOOD UREA NITROGEN,BUN 31 mg/dL (7.0-18.0); CARBON DIOXIDE,CO2 31.4 mmol/L (21.0-32.0); CHLORIDE,CL 102 mmol/L (98-107); GLUCOSE RANDOM 112 mg/dL (74-106); POTASSIUM,K 3.8 mmol/L (3.5-5.1); SODIUM,NA 139 mmol/L (136-145)
[2019-04-11] MEDS ORDERED: cefTRIAXone 1 GM in Sodium Chloride 0.9% 50 ML IV SCH (17:00)
[2019-04-11] MEDS: Azithromycin 500 MG in Sodium Chloride 0.9% 250 ML IV SCH (17:13)
[2019-04-11] MEDS ORDERED: Divalproex Sodium Delayed-Release 500 MG Tab.CR PO SCH (17:41)
[2019-04-11] MEDS ORDERED: Iopamidol 755 MG/ML 500 ML Multipack Bottle IVPUSH STA (18:33)
--- NOTE | 2019-04-11 19:00 | CT ---
CT chest Technique: Multiple axial sections through the chest were obtained. Reconstructed coronal and sagittal images were obtained. Intravenous contrast was utilized. Study has been performed as a pulmonary angiogram protocol. Comparison: Prior chest x-ray performed earlier on same date (3:58 PM). Findings: Pulmonary arteries are well opacified. No filling defects are seen to indicate pulmonary embolism. Aorta shows no aneurysm. Minimal coronary artery calcification is seen. Adenopathy is seen within the mediastinum and within both hilar regions. Mild subcarinal adenopathy is also noted. No axillary adenopathy is seen. Largest lymph node measures around 2.1 cm. Emphysematous changes are present. There is bronchial wall thickening within both lower lungs with more confluent densities within both lung bases, worse on the right side. No pleural effusions are seen. Bone window settings were reviewed. No acute osseous finding is seen. Impression: 1. No findings pulmonary embolism. 2. Emphysematous change. 3. Bronchial wall thickening with more confluent densities within both lower lungs. Findings raise the possibility of bronchitis with patchy areas of bibasilar pneumonia, findings are worse on the right side. 4. Mediastinal and hilar adenopathy. This seems to be more prominent than usually seen for previous infection or current infection and lymphoma at this point cannot be excluded. Diagnostic code #9 This report was dictated in [place] Standard Time
[2019-04-11] MEDS: Enoxaparin 40 MG/0.4 ML Syringe SUBCUT SCH (19:07)
[2019-04-11] MEDS: Levalbuterol HCl 1.25 MG/3 ML Neb NEB PRN (20:21)
[2019-04-11] MEDS: cefTRIAXone 1 GM in Sodium Chloride 0.9% 50 ML IV SCH (21:06)
[2019-04-11] MEDS: Divalproex Sodium Delayed-Release 500 MG Tab.CR PO SCH (21:07)
[2019-04-12] MEDS ORDERED: Sodium Chloride 0.9% 1,000 ML IV SCH (01:00)
[2019-04-12] MEDS: Levalbuterol HCl 1.25 MG/3 ML Neb NEB PRN ×2 (03:36→21:24)
[2019-04-12] MEDS: Benzonatate 100 MG Cap PO PRN ×2 (04:24→20:17)
[2019-04-12] MEDS: Levothyroxine 75 MCG Tab PO SCH (06:44)
[2019-04-12 06:58] LABS: HEMOGLOBIN A1C 5.6 % (4.5-6.2)
[2019-04-12 07:26] LABS: BLOOD UREA NITROGEN,BUN 30 mg/dL (7.0-18.0); CARBON DIOXIDE,CO2 33.5 mmol/L (21.0-32.0); CHLORIDE,CL 99 mmol/L (98-107); GLUCOSE RANDOM 204 mg/dL (74-106); POTASSIUM,K 4.4 mmol/L (3.5-5.1); SODIUM,NA 138 mmol/L (136-145)
[2019-04-12] MEDS ORDERED: Divalproex Sodium Delayed-Release 500 MG Tab.CR PO SCH (08:00)
[2019-04-12] MEDS: Azithromycin 500 MG in Sodium Chloride 0.9% 250 ML IV SCH (08:29)
[2019-04-12] MEDS: Divalproex Sodium Delayed-Release 500 MG Tab.CR PO SCH ×3 (08:35→21:20)
[2019-04-12] MEDS ORDERED: methylPREDNISolone Sodium Succinate 40 MG/1 ML SDV IVPUSH SCH (09:00)
[2019-04-12] MEDS: VILANTEROL TR INH SCH (09:33)
[2019-04-12] MEDS: UMECLIDINIUM BRM INH SCH (09:33)
--- NOTE | 2019-04-12 10:17 | PCM.PN ---
- General Info Date of Service: 04/12/19 Subjective Update: remained on 10 L NC. Now transitioned to high flow at 5 L/min. - Patient Data Vitals - Most Recent: Last Vital Signs Temp 36.4 C 04/12/19 08:00 Pulse 90 04/12/19 08:00 Resp 18 04/12/19 08:00 BP 105/62 04/12/19 08:00 Pulse Ox 97 04/12/19 08:59 Weight - Most Recent: 68.9 kg I&O - Last 24 Hours: Intake & Output 04/11/19 04/12/19 04/12/19 22:59 06:59 14:59 Intake Total 50 1140 Output Total 700 Balance 50 440 Lab Results Last 24 Hours: Laboratory Results - last 24 hr 04/11/19 04/11/19 04/12/19 Range/Units 15:54 15:54 06:00 WBC 13.77 H 10.87 (4.0-11.0) K/uL RBC 4.30 3.80 L (4.30-5.90) M/uL Hgb 14.0 12.2 (12.0-16.0) g/dL Hct 43.1 38.0 (36.0-46.0) % MCV 100.2 H 100.0 H (80.0-98.0) fL MCH 32.6 H 32.1 H (27.0-32.0) pg MCHC 32.5 32.1 (31.0-37.0) g/dL RDW Std Deviation 49.1 48.2 (28.0-62.0) fl RDW Coeff of Drew 13 13 (11.0-15.0) % Plt Count 118 L 127 L (150-400) K/uL MPV 10.30 10.50 (7.40-12.00) fL Neut % (Auto) 89.0 H (48.0-80.0) % Lymph % (Auto) 5.2 L (16.0-40.0) % Bacon % (Auto) 5.8 (0.0-15.0) % Eos % (Auto) 0.0 (0.0-7.0) % Baso % (Auto) 0.0 (0.0-1.5) % Neut # (Auto) 9.7 H (1.4-5.7) K/uL Lymph # (Auto) 0.6 (0.6-2.4) K/uL Bacon # (Auto) 0.6 (0.0-0.8) K/uL Eos # (Auto) 0.0 (0.0-0.7) K/uL Baso # (Auto) 0.0 (0.0-0.1) K/uL Add Manual Diff YES Neutrophils % (Manual) 50 (48.0-80.0) % Band Neutrophils % 22 % Lymphocytes % (Manual) 13 L (16.0-40.0) % Monocytes % (Manual) 13 (0.0-15.0) % Metamyelocytes % 2 % Nucleated RBC % 0.0 0.0 /100WBC Absolute Seg Neuts 6.9 H (1.4-5.7) Band Neutrophils # 3.0 Lymphocytes # (Manual) 1.8 (0.6-2.4) Monocytes # (Manual) 1.8 H (0.0-0.8) Absolute Metamyelocyte 0.3 Nucleated RBCs # 0 0 K/uL Sodium 139 (136-145) mmol/L Potassium 3.8 (3.5-5.1) mmol/L Chloride 102 (98-107) mmol/L Carbon Dioxide 31.4 (21.0-32.0) mmol/L BUN 31 H (7.0-18.0) mg/dL Creatinine 0.9 (0.6-1.0) mg/dL Est Cr Clr Drug Dosing 63.78 mL/min Estimated GFR (MDRD) > 60.0 ml/min Glucose 112 H (74-106) mg/dL Hemoglobin A1c (4.5-6.2) % Calcium 9.4 (8.5-10.1) mg/dL Iron (50-175) ug/dL TIBC (250-450) ug/dL % Saturation (20-55) % Ferritin (8-252) ng/mL Total Bilirubin 0.6 (0.2-1.0) mg/dL AST 11 L (15-37) IU/L ALT 12 L (14-63) IU/L Alkaline Phosphatase 69 (46-116) U/L Total Protein 6.6 (6.4-8.2) g/dL Albumin 3.0 L (3.4-5.0) g/dL Globulin 3.6 (2.6-4.0) g/dL Albumin/Globulin Ratio 0.8 L (0.9-1.6) Triglycerides (0-200) mg/dL Cholesterol (50-200) mg/dL LDL Cholesterol, Calc (60-180) mg/dL VLDL Cholesterol (5-55) mg/dL HDL Cholesterol (40-60) mg/dL Cholesterol/HDL Ratio (3.3-6.0) Vitamin B12 (193-986) pg/mL Folate (8.60-58.90) ng/mL 04/12/19 04/12/19 04/12/19 Range/Units 06:00 06:00 06:00 WBC (4.0-11.0) K/uL RBC (4.30-5.90) M/uL Hgb (12.0-16.0) g/dL Hct (36.0-46.0) % MCV (80.0-98.0) fL MCH (27.0-32.0) pg MCHC (31.0-37.0) g/dL RDW Std Deviation (28.0-62.0) fl RDW Coeff of Drew (11.0-15.0) % Plt Count (150-400) K/uL MPV (7.40-12.00) fL Neut % (Auto) (48.0-80.0) % Lymph % (Auto) (16.0-40.0) % Bacon % (Auto) (0.0-15.0) % Eos % (Auto) (0.0-7.0) % Baso % (Auto) (0.0-1.5) % Neut # (Auto) (1.4-5.7) K/uL Lymph # (Auto) (0.6-2.4) K/uL Bacon # (Auto) (0.0-0.8) K/uL Eos # (Auto) (0.0-0.7) K/uL Baso # (Auto) (0.0-0.1) K/uL Add Manual Diff Neutrophils % (Manual) (48.0-80.0) % Band Neutrophils % % Lymphocytes % (Manual) (16.0-40.0) % Monocytes % (Manual) (0.0-15.0) % Metamyelocytes % % Nucleated RBC % /100WBC Absolute Seg Neuts (1.4-5.7) Band Neutrophils # Lymphocytes # (Manual) (0.6-2.4) Monocytes # (Manual) (0.0-0.8) Absolute Metamyelocyte Nucleated RBCs # K/uL Sodium 138 (136-145) mmol/L Potassium 4.4 (3.5-5.1) mmol/L Chloride 99 (98-107) mmol/L Carbon Dioxide 33.5 H (21.0-32.0) mmol/L BUN 30 H (7.0-18.0) mg/dL Creatinine 0.8 (0.6-1.0) mg/dL Est Cr Clr Drug Dosing 71.76 mL/min Estimated GFR (MDRD) > 60.0 ml/min Glucose 204 H (74-106) mg/dL Hemoglobin A1c 5.6 (4.5-6.2) % Calcium 9.0 (8.5-10.1) mg/dL Iron 16 L (50-175) ug/dL TIBC 198 L (250-450) ug/dL % Saturation 8.08 L (20-55) % Ferritin 466 H (8-252) ng/mL Total Bilirubin 0.2 (0.2-1.0) mg/dL AST 5 L (15-37) IU/L ALT 8 L (14-63) IU/L Alkaline Phosphatase 64 (46-116) U/L Total Protein 6.1 L (6.4-8.2) g/dL Albumin 2.4 L (3.4-5.0) g/dL Globulin 3.7 (2.6-4.0) g/dL Albumin/Globulin Ratio 0.7 L (0.9-1.6) Triglycerides 78 (0-200) mg/dL Cholesterol 131 (50-200) mg/dL LDL Cholesterol, Calc 75 (60-180) mg/dL VLDL Cholesterol 15 (5-55) mg/dL HDL Cholesterol 40 (40-60) mg/dL Cholesterol/HDL Ratio 3.3 (3.3-6.0) Vitamin B12 1183 H (193-986) pg/mL Folate 25.90 (8.60-58.90) ng/mL Chu Results Last 24 Hours: Microbiology 04/11/19 16:37 Influenza Type A Antigen Screen - Final Nasopharyngeal Swab NEGATIVE INFLUENZA A VIRUS AG REFERENCE RANGE: NEGATIVE Influenza Type B Antigen Screen - Final NEGATIVE INFLUENZA B VIRUS AG REFERENCE RANGE: NEGATIVE Med Orders - Current: Current Medications Acetaminophen (Tylenol) 650 mg PO Q4H PRN PRN Reason: Pain (Mild 1-3)/fever Last Admin: 04/11/19 17:55 Dose: 650 mg Benzonatate (Tessalon Perles) 100 mg PO Q6H PRN PRN Reason: Cough Last Admin: 04/12/19 04:24 Dose: 100 mg Divalproex Sodium (Depakote) 500 mg PO DAILY@0800,1400,2200 [facility] Last Admin: 04/12/19 08:35 Dose: 500 mg Docusate Sodium (Colace) 100 mg PO BID PRN PRN Reason: Constipation Enoxaparin Sodium (Lovenox) 40 mg SUBCUT Q24H [facility] Last Admin: 04/11/19 19:07 Dose: 40 mg Azithromycin 500 mg/ Sodium (Chloride) 250 mls @ 250 mls/hr IV DAILY [facility] Last Admin: 04/12/19 08:29 Dose: 250 mls/hr Ceftriaxone Sodium 1 gm/ (Sodium Chloride) 50 mls @ 100 mls/hr IV Q24H [facility] Last Admin: 04/11/19 21:06 Dose: 100 mls/hr Sodium Chloride (Normal Saline) 1,000 mls @ 100 mls/hr IV ASDIRECTED [facility] Last Admin: 04/12/19 01:11 Dose: 100 mls/hr Ibuprofen (Motrin) 600 mg PO Q6H PRN PRN Reason: Pain (mild 1-3) Levalbuterol HCl (Xopenex) 1.25 mg NEB Q4HRRT PRN PRN Reason: Wheezing Last Admin: 04/12/19 03:36 Dose: 1.25 mg Levalbuterol HCl (Xopenex) 1.25 mg NEB Q4HRRT [facility] Levothyroxine Sodium (Levothyroxine) 75 mcg PO ACBREAKFAST [facility] Last Admin: 04/12/19 06:44 Dose: 75 mcg Methylprednisolone Sodium Succinate (Solu-Medrol) 40 mg IVPUSH DAILY [facility] Last Admin: 04/12/19 08:34 Dose: 40 mg Nicotine (Habitrol) 14 mg TRDERM DAILY PRN PRN Reason: Other Ondansetron HCl (Zofran Odt) 4 mg PO Q4H PRN PRN Reason: nausea, able to take PO Ondansetron HCl (Zofran) 4 mg IVPUSH Q4H PRN PRN Reason: Nausea Umeclidinium Brm/Vilanterol Tr 62.5/25 Mcg (Anoro)1 Puff 1 each INH DAILY [facility] Last Admin: 04/12/19 09:33 Dose: Not Given Polyethylene Glycol (Miralax) 17 gm PO DAILY PRN PRN Reason: Constipation Discontinued Medications Divalproex Sodium (Depakote) 500 mg PO TID [facility] Last Admin: 04/11/19 17:55 Dose: 500 mg Divalproex Sodium (Depakote) 500 mg PO DAILY@0800,1400,2200 [facility] Ceftriaxone Sodium 1 gm/ (Sodium Chloride) 50 mls @ 100 mls/hr IV Q24H [facility] Last Admin: 04/11/19 21:39 Dose: Not Given Iopamidol (Isovue Multipack-370 (76%)) 50 ml IVPUSH ONETIME STA Stop: 04/11/19 18:34 Last Admin: 04/11/19 18:35 Dose: 50 ml Levalbuterol HCl (Xopenex) 1.25 mg NEB ONETIME ONE Stop: 04/11/19 15:45 Last Admin: 04/11/19 16:23 Dose: 1.25 mg Methylprednisolone Sodium Succinate (Solu-Medrol) 40 mg IVPUSH ONETIME ONE Stop: 04/11/19 15:47 Last Admin: 04/11/19 17:19 Dose: 40 mg - Exam Quality Assessment: Supplemental Oxygen General: Alert, Oriented, Cooperative, No Acute Distress Lungs: Decreased Breath Sounds, Rhonchi, Wheezing Cardiovascular: Regular Rate, Regular Rhythm GI/Abdominal Exam: Normal Bowel Sounds, Soft, Non-Tender Extremities: Normal Inspection, No Pedal Edema Skin: Warm, Dry Sepsis Event Note - Evaluation Sepsis Screening Result: Sepsis Risk - Focused Exam Vital Signs: Vital Signs Temp Pulse Resp BP Pulse Ox 04/12/19 08:59 97 04/12/19 08:00 36.4 C 90 18 105/62 96 04/12/19 04:00 36.2 C 96 23 H 106/56 L 91 L 04/12/19 00:18 36.2 C 97 23 H 94/53 L 93 L Date Exam was Performed: 04/12/19 Time Exam was Performed: 13:20 - Problem List Review Problem List Initiated/Reviewed/Updated: Yes - My Orders Last 24 Hours: My Active Orders 04/11/19 15:39 Patient Status [ADT] Routine Oxygen Therapy [RC] PRN Up ad Ana [RC] ASDIRECTED VTE/DVT Education [RC] PER UNIT ROUTINE Vital Signs [RC] Q4H Acetaminophen [Tylenol] 650 mg PO Q4H PRN Docusate Sodium [Colace] 100 mg PO BID PRN Ibuprofen [Motrin] 600 mg PO Q6H PRN Nicotine [Habitrol] 14 mg TRDERM DAILY PRN Ondansetron [Zofran ODT] 4 mg PO Q4H PRN Ondansetron [Zofran] 4 mg IVPUSH Q4H PRN polyethylene glycoL 3350 [MiraLAX] 17 gm PO DAILY PRN Resuscitation Status Routine 04/11/19 15:41 Intake and Output [RC] QSHIFT 04/11/19 15:45 levalbuterol HCL [Xopenex] 1.25 mg NEB Q4HRRT PRN 04/11/19 15:46 RT Aerosol Therapy [RC] ASDIRECTED 04/11/19 16:00 Azithromycin [Zithromax] 500 mg Sodium Chloride 0.9% [Normal Saline (AdvBag)] 250 ml IV DAILY 04/11/19 18:00 Enoxaparin [Lovenox] 40 mg SUBCUT Q24H 04/11/19 21:00 cefTRIAXone [Rocephin] 1 gm Sodium Chloride 0.9% [Normal Saline] 50 ml IV Q24H 04/11/19 22:00 Divalproex Sodium [Depakote] 500 mg PO DAILY@0800,1400,2200 04/11/19 Dinner Regular Diet [DIET] 04/12/19 07:24 OCCULT BLOOD DIAGNOSTIC [OP] Routine 04/12/19 07:30 Levothyroxine 75 mcg PO ACBREAKFAST 04/12/19 08:45 ABG [BLOOD GAS ARTERIAL] [BG] Routine 04/12/19 09:00 Patient's Own Medication [Ptom] 1 each INH DAILY methylPREDNISolone Sod Succ [Solu-MEDROL] 40 mg IVPUSH DAILY 04/12/19 10:16 RT Aerosol Therapy [RC] ASDIRECTED 04/12/19 14:00 levalbuterol HCL [Xopenex] 1.25 mg NEB Q4HRRT 04/13/19 05:11 CBC WITH AUTO DIFF [HEME] AM COMPREHENSIVE METABOLIC PN,CMP [CHEM] AM - Plan Plan:: A: 1. Acute on chronic hypoxic respiratory failure 2. Community acquired pneumonia 3. Mediastinal adenopathy 4. Hyperglycemia 5. Iron deficiency anemia 6. PMH COPD P: 1. Titrate as tolerated. Currently on high flow 5 L/min. Continue with nebulizer treatment Q4H for 3 doses and then PRN. Continue Ceftriaxone and azithromycin. Will need to follow-up outpatient for further evaluation of her mediastinal adenopathy since it's concerning for malignancy. Will add ISS for hyperglycemia secondary to steroids. Will hold off on iron supplementation due to acute setting. Likely anemia of chronic disease since Ferritin is elevated as well. Dispo: 2-3 days.
[2019-04-12] MEDS: Levalbuterol HCl 1.25 MG/3 ML Neb NEB SCH ×3 (11:07→17:39)
[2019-04-12] MEDS: Codeine/guaiFENesin 100-10 MG/5 ML Syrup 5 ML Cup PO PRN (14:33)
[2019-04-12] MEDS: Insulin Aspart 100 Units/ML 3 ML Pen SUBCUT SCH (17:25)
[2019-04-12] MEDS: Enoxaparin 40 MG/0.4 ML Syringe SUBCUT SCH (17:30)
[2019-04-12] MEDS: methylPREDNISolone Sodium Succinate 40 MG/1 ML SDV IVPUSH SCH (20:17)
[2019-04-12] MEDS: cefTRIAXone 1 GM in Sodium Chloride 0.9% 50 ML IV SCH (20:18)
[2019-04-13] MEDS: Codeine/guaiFENesin 100-10 MG/5 ML Syrup 5 ML Cup PO PRN ×3 (02:20→19:53)
[2019-04-13] MEDS: Insulin Aspart 100 Units/ML 3 ML Pen SUBCUT SCH ×3 (06:46→17:49)
[2019-04-13 07:01] LABS: BLOOD UREA NITROGEN,BUN 24 mg/dL (7.0-18.0); CARBON DIOXIDE,CO2 33.1 mmol/L (21.0-32.0); CHLORIDE,CL 98 mmol/L (98-107); GLUCOSE RANDOM 155 mg/dL (74-106); POTASSIUM,K 4.6 mmol/L (3.5-5.1); SODIUM,NA 136 mmol/L (136-145)
[2019-04-13] MEDS: Levothyroxine 75 MCG Tab PO SCH (07:01)
[2019-04-13] MEDS: Divalproex Sodium Delayed-Release 500 MG Tab.CR PO SCH ×3 (09:41→21:18)
[2019-04-13] MEDS: methylPREDNISolone Sodium Succinate 40 MG/1 ML SDV IVPUSH SCH ×2 (09:44→20:21)
[2019-04-13] MEDS: Azithromycin 500 MG in Sodium Chloride 0.9% 250 ML IV SCH (09:44)
[2019-04-13] MEDS: VILANTEROL TR INH SCH (09:46)
[2019-04-13] MEDS: UMECLIDINIUM BRM INH SCH (09:46)
[2019-04-13] MEDS: Levalbuterol HCl 1.25 MG/3 ML Neb NEB PRN ×2 (13:29→21:18)
--- NOTE | 2019-04-13 13:29 | PCM.PN ---
- General Info Date of Service: 04/13/19 - Review of Systems Systems Review Comment:: shortness of breath is improving, feeling better but not ready to go home. - Patient Data Vitals - Most Recent: Last Vital Signs Temp 36.2 C 04/13/19 12:00 Pulse 87 04/13/19 12:00 Resp 18 04/13/19 12:00 BP 107/62 04/13/19 12:00 Pulse Ox 92 L 04/13/19 12:00 Weight - Most Recent: 68.9 kg I&O - Last 24 Hours: Intake & Output 04/12/19 04/13/19 04/13/19 22:59 06:59 14:59 Intake Total 900 Output Total 450 Balance 450 Lab Results Last 24 Hours: Laboratory Results - last 24 hr 04/12/19 04/12/19 04/13/19 Range/Units 17:24 23:11 06:00 WBC (4.0-11.0) K/uL RBC (4.30-5.90) M/uL Hgb (12.0-16.0) g/dL Hct (36.0-46.0) % MCV (80.0-98.0) fL MCH (27.0-32.0) pg MCHC (31.0-37.0) g/dL RDW Std Deviation (28.0-62.0) fl RDW Coeff of Drew (11.0-15.0) % Plt Count (150-400) K/uL MPV (7.40-12.00) fL Neut % (Auto) (48.0-80.0) % Lymph % (Auto) (16.0-40.0) % Bollinger % (Auto) (0.0-15.0) % Eos % (Auto) (0.0-7.0) % Baso % (Auto) (0.0-1.5) % Neut # (Auto) (1.4-5.7) K/uL Lymph # (Auto) (0.6-2.4) K/uL Bollinger # (Auto) (0.0-0.8) K/uL Eos # (Auto) (0.0-0.7) K/uL Baso # (Auto) (0.0-0.1) K/uL Nucleated RBC % /100WBC Nucleated RBCs # K/uL Sodium 136 (136-145) mmol/L Potassium 4.6 (3.5-5.1) mmol/L Chloride 98 (98-107) mmol/L Carbon Dioxide 33.1 H (21.0-32.0) mmol/L BUN 24 H (7.0-18.0) mg/dL Creatinine 0.7 (0.6-1.0) mg/dL Est Cr Clr Drug Dosing 82.01 mL/min Estimated GFR (MDRD) > 60.0 ml/min Glucose 155 H (74-106) mg/dL POC Glucose 167 H 153 H (60-110) mg/dL Calcium 8.8 (8.5-10.1) mg/dL 04/13/19 04/13/19 04/13/19 Range/Units 06:00 06:24 12:05 WBC 15.04 H (4.0-11.0) K/uL RBC 3.78 L (4.30-5.90) M/uL Hgb 12.0 (12.0-16.0) g/dL Hct 37.7 (36.0-46.0) % MCV 99.7 H (80.0-98.0) fL MCH 31.7 (27.0-32.0) pg MCHC 31.8 (31.0-37.0) g/dL RDW Std Deviation 48.1 (28.0-62.0) fl RDW Coeff of Drew 13 (11.0-15.0) % Plt Count 162 (150-400) K/uL MPV 10.80 (7.40-12.00) fL Neut % (Auto) 88.8 H (48.0-80.0) % Lymph % (Auto) 6.6 L (16.0-40.0) % Bollinger % (Auto) 4.5 (0.0-15.0) % Eos % (Auto) 0.0 (0.0-7.0) % Baso % (Auto) 0.1 (0.0-1.5) % Neut # (Auto) 13.4 H (1.4-5.7) K/uL Lymph # (Auto) 1.0 (0.6-2.4) K/uL Bollinger # (Auto) 0.7 (0.0-0.8) K/uL Eos # (Auto) 0.0 (0.0-0.7) K/uL Baso # (Auto) 0.0 (0.0-0.1) K/uL Nucleated RBC % 0.0 /100WBC Nucleated RBCs # 0 K/uL Sodium (136-145) mmol/L Potassium (3.5-5.1) mmol/L Chloride (98-107) mmol/L Carbon Dioxide (21.0-32.0) mmol/L BUN (7.0-18.0) mg/dL Creatinine (0.6-1.0) mg/dL Est Cr Clr Drug Dosing mL/min Estimated GFR (MDRD) ml/min Glucose (74-106) mg/dL POC Glucose 140 H 126 H (60-110) mg/dL Calcium (8.5-10.1) mg/dL Chu Results Last 24 Hours: Microbiology 04/12/19 21:15 Stool Occult Blood ([facility]) - Final Stool / Feces NEGATIVE OCCULT BLOOD REFERENCE RANGE: NEGATIVE Med Orders - Current: Current Medications Acetaminophen (Tylenol) 650 mg PO Q4H PRN PRN Reason: Pain (Mild 1-3)/fever Last Admin: 04/11/19 17:55 Dose: 650 mg Benzonatate (Tessalon Perles) 100 mg PO Q6H PRN PRN Reason: Cough Last Admin: 04/12/19 20:17 Dose: 100 mg Divalproex Sodium (Depakote) 500 mg PO DAILY@0800,1400,2200 [facility] Last Admin: 04/13/19 13:17 Dose: 500 mg Docusate Sodium (Colace) 100 mg PO BID PRN PRN Reason: Constipation Enoxaparin Sodium (Lovenox) 40 mg SUBCUT Q24H [facility] Last Admin: 04/12/19 17:30 Dose: 40 mg Guaifenesin/Codeine Phosphate (Robitussin Ac) 5 ml PO Q6H PRN PRN Reason: Cough Last Admin: 04/13/19 11:13 Dose: 5 ml Azithromycin 500 mg/ Sodium (Chloride) 250 mls @ 250 mls/hr IV DAILY [facility] Last Admin: 04/13/19 09:44 Dose: 250 mls/hr Ceftriaxone Sodium 1 gm/ (Sodium Chloride) 50 mls @ 100 mls/hr IV Q24H [facility] Last Admin: 04/12/19 20:18 Dose: 100 mls/hr Ibuprofen (Motrin) 600 mg PO Q6H PRN PRN Reason: Pain (mild 1-3) Last Admin: 04/13/19 02:20 Dose: 600 mg Insulin Aspart (Novolog) 0 unit SUBCUT TIDAC [facility]; Protocol Last Admin: 04/13/19 11:45 Dose: Not Given Levalbuterol HCl (Xopenex) 1.25 mg NEB Q4HRRT PRN PRN Reason: Wheezing Last Admin: 04/12/19 21:24 Dose: 1.25 mg Levothyroxine Sodium (Levothyroxine) 75 mcg PO ACBREAKFAST [facility] Last Admin: 04/13/19 07:01 Dose: 75 mcg Methylprednisolone Sodium Succinate (Solu-Medrol) 40 mg IVPUSH BID [facility] Last Admin: 04/13/19 09:44 Dose: 40 mg Nicotine (Habitrol) 14 mg TRDERM DAILY PRN PRN Reason: Other Ondansetron HCl (Zofran Odt) 4 mg PO Q4H PRN PRN Reason: nausea, able to take PO Ondansetron HCl (Zofran) 4 mg IVPUSH Q4H PRN PRN Reason: Nausea Umeclidinium Brm/Vilanterol Tr 62.5/25 Mcg (Anoro)1 Puff 1 each INH DAILY [facility] Last Admin: 04/13/19 09:46 Dose: Not Given Polyethylene Glycol (Miralax) 17 gm PO DAILY PRN PRN Reason: Constipation Discontinued Medications Divalproex Sodium (Depakote) 500 mg PO TID [facility] Last Admin: 04/11/19 17:55 Dose: 500 mg Divalproex Sodium (Depakote) 500 mg PO DAILY@0800,1400,2200 [facility] Ceftriaxone Sodium 1 gm/ (Sodium Chloride) 50 mls @ 100 mls/hr IV Q24H [facility] Last Admin: 04/11/19 21:39 Dose: Not Given Sodium Chloride (Normal Saline) 1,000 mls @ 100 mls/hr IV ASDIRECTED [facility] Last Admin: 04/12/19 01:11 Dose: 100 mls/hr Iopamidol (Isovue Multipack-370 (76%)) 50 ml IVPUSH ONETIME STA Stop: 04/11/19 18:34 Last Admin: 04/11/19 18:35 Dose: 50 ml Levalbuterol HCl (Xopenex) 1.25 mg NEB ONETIME ONE Stop: 04/11/19 15:45 Last Admin: 04/11/19 16:23 Dose: 1.25 mg Levalbuterol HCl (Xopenex) 1.25 mg NEB Q4HRRT [facility] Last Admin: 04/12/19 17:39 Dose: 1.25 mg Methylprednisolone Sodium Succinate (Solu-Medrol) 40 mg IVPUSH ONETIME ONE Stop: 04/11/19 15:47 Last Admin: 04/11/19 17:19 Dose: 40 mg Methylprednisolone Sodium Succinate (Solu-Medrol) 40 mg IVPUSH DAILY [facility] Last Admin: 04/12/19 08:34 Dose: 40 mg - Exam General: Alert, Oriented Neck: Supple Lungs: Normal Respiratory Effort, Decreased Breath Sounds GI/Abdominal Exam: Normal Bowel Sounds, Soft, Non-Tender Extremities: Non-Tender, No Pedal Edema Skin: Warm, Dry, Intact Sepsis Event Note - Evaluation Sepsis Screening Result: Sepsis Risk - Focused Exam Vital Signs: Vital Signs Temp Pulse Resp BP Pulse Ox 04/13/19 12:00 36.2 C 87 18 107/62 92 L 04/13/19 08:00 36.2 C 91 18 102/49 L 90 L 04/13/19 04:00 36.6 C 86 19 113/67 95 Date Exam was Performed: 04/13/19 Time Exam was Performed: 13:26 - Problem List Review Problem List Initiated/Reviewed/Updated: Yes - Plan Plan:: 58 yo female admitted for COPD exacerbation and community acquired pneumonia. We will continue solumedrol, duonebs, Rocephin and azithromycin. We will wean supplemental oxygen as tolerated. Patient will likely need pulmonology referral regarding mediastinal adenopathy seen on CT scan.
[2019-04-13] MEDS: Enoxaparin 40 MG/0.4 ML Syringe SUBCUT SCH (17:52)
[2019-04-13] MEDS: cefTRIAXone 1 GM in Sodium Chloride 0.9% 50 ML IV SCH (20:22)
[2019-04-13] MEDS: Benzonatate 100 MG Cap PO PRN (21:18)
[2019-04-14 05:39] LABS: BLOOD UREA NITROGEN,BUN 20 mg/dL (7.0-18.0); CARBON DIOXIDE,CO2 36.2 mmol/L (21.0-32.0); CHLORIDE,CL 100 mmol/L (98-107); GLUCOSE RANDOM 168 mg/dL (74-106); POTASSIUM,K 4.9 mmol/L (3.5-5.1); SODIUM,NA 137 mmol/L (136-145)
[2019-04-14] MEDS: Levothyroxine 75 MCG Tab PO SCH (06:35)
[2019-04-14] MEDS: Insulin Aspart 100 Units/ML 3 ML Pen SUBCUT SCH ×3 (06:36→16:57)
[2019-04-14] MEDS: methylPREDNISolone Sodium Succinate 40 MG/1 ML SDV IVPUSH SCH (08:38)
[2019-04-14] MEDS: Divalproex Sodium Delayed-Release 500 MG Tab.CR PO SCH ×3 (08:38→22:04)
[2019-04-14] MEDS: UMECLIDINIUM BRM INH SCH (08:46)
[2019-04-14] MEDS: VILANTEROL TR INH SCH (08:46)
[2019-04-14] MEDS: Benzonatate 100 MG Cap PO PRN ×2 (08:47→22:04)
[2019-04-14] MEDS: Levalbuterol HCl 1.25 MG/3 ML Neb NEB PRN (09:16)
--- NOTE | 2019-04-14 10:51 | PCM.PN ---
- General Info Date of Service: 04/14/19 Subjective Update: no acute events overnight. On 3L NC with O2 sat >88%. Feeling better this morning but still having a cough. She is concerned about missing her appointment with Dr. Gonzalez, Cardiology today. No chest pain, abdominal pain, dysuria, diarrhea. - Patient Data Vitals - Most Recent: Last Vital Signs Temp 36.3 C 04/14/19 08:00 Pulse 82 04/14/19 08:00 Resp 18 04/14/19 08:00 BP 103/71 04/14/19 08:00 Pulse Ox 92 L 04/14/19 08:00 Weight - Most Recent: 68.9 kg I&O - Last 24 Hours: Intake & Output 04/13/19 04/14/19 04/14/19 22:59 06:59 14:59 Intake Total 750 Output Total 400 Balance 350 Lab Results Last 24 Hours: Laboratory Results - last 24 hr 04/13/19 04/13/19 04/13/19 Range/Units 12:05 17:47 23:10 WBC (4.0-11.0) K/uL RBC (4.30-5.90) M/uL Hgb (12.0-16.0) g/dL Hct (36.0-46.0) % MCV (80.0-98.0) fL MCH (27.0-32.0) pg MCHC (31.0-37.0) g/dL RDW Std Deviation (28.0-62.0) fl RDW Coeff of Drew (11.0-15.0) % Plt Count (150-400) K/uL MPV (7.40-12.00) fL Neut % (Auto) (48.0-80.0) % Lymph % (Auto) (16.0-40.0) % [place] % (Auto) (0.0-15.0) % Eos % (Auto) (0.0-7.0) % Baso % (Auto) (0.0-1.5) % Neut # (Auto) (1.4-5.7) K/uL Lymph # (Auto) (0.6-2.4) K/uL [place] # (Auto) (0.0-0.8) K/uL Eos # (Auto) (0.0-0.7) K/uL Baso # (Auto) (0.0-0.1) K/uL Nucleated RBC % /100WBC Nucleated RBCs # K/uL Sodium (136-145) mmol/L Potassium (3.5-5.1) mmol/L Chloride (98-107) mmol/L Carbon Dioxide (21.0-32.0) mmol/L BUN (7.0-18.0) mg/dL Creatinine (0.6-1.0) mg/dL Est Cr Clr Drug Dosing mL/min Estimated GFR (MDRD) ml/min Glucose (74-106) mg/dL POC Glucose 126 H 188 H 181 H (60-110) mg/dL Calcium (8.5-10.1) mg/dL 04/14/19 04/14/19 04/14/19 Range/Units 05:02 05:02 06:05 WBC 13.03 H (4.0-11.0) K/uL RBC 3.79 L (4.30-5.90) M/uL Hgb 12.1 (12.0-16.0) g/dL Hct 38.1 (36.0-46.0) % MCV 100.5 H (80.0-98.0) fL MCH 31.9 (27.0-32.0) pg MCHC 31.8 (31.0-37.0) g/dL RDW Std Deviation 48.5 (28.0-62.0) fl RDW Coeff of Drew 13 (11.0-15.0) % Plt Count 180 (150-400) K/uL MPV 10.40 (7.40-12.00) fL Neut % (Auto) 89.6 H (48.0-80.0) % Lymph % (Auto) 6.5 L (16.0-40.0) % [place] % (Auto) 3.8 (0.0-15.0) % Eos % (Auto) 0.0 (0.0-7.0) % Baso % (Auto) 0.1 (0.0-1.5) % Neut # (Auto) 11.7 H (1.4-5.7) K/uL Lymph # (Auto) 0.9 (0.6-2.4) K/uL [place] # (Auto) 0.5 (0.0-0.8) K/uL Eos # (Auto) 0.0 (0.0-0.7) K/uL Baso # (Auto) 0.0 (0.0-0.1) K/uL Nucleated RBC % 0.0 /100WBC Nucleated RBCs # 0 K/uL Sodium 137 (136-145) mmol/L Potassium 4.9 (3.5-5.1) mmol/L Chloride 100 (98-107) mmol/L Carbon Dioxide 36.2 H (21.0-32.0) mmol/L BUN 20 H (7.0-18.0) mg/dL Creatinine 0.7 (0.6-1.0) mg/dL Est Cr Clr Drug Dosing 82.01 mL/min Estimated GFR (MDRD) > 60.0 ml/min Glucose 168 H (74-106) mg/dL POC Glucose 158 H (60-110) mg/dL Calcium 8.6 (8.5-10.1) mg/dL Med Orders - Current: Current Medications Acetaminophen (Tylenol) 650 mg PO Q4H PRN PRN Reason: Pain (Mild 1-3)/fever Last Admin: 04/11/19 17:55 Dose: 650 mg Azithromycin (Zithromax) 500 mg PO Q24H [facility] Benzonatate (Tessalon Perles) 100 mg PO Q6H PRN PRN Reason: Cough Last Admin: 04/14/19 08:47 Dose: 100 mg Divalproex Sodium (Depakote) 500 mg PO DAILY@0800,1400,2200 [facility] Last Admin: 04/14/19 08:38 Dose: 500 mg Docusate Sodium (Colace) 100 mg PO BID PRN PRN Reason: Constipation Enoxaparin Sodium (Lovenox) 40 mg SUBCUT Q24H [facility] Last Admin: 04/13/19 17:52 Dose: 40 mg Guaifenesin/Codeine Phosphate (Robitussin Ac) 5 ml PO Q6H PRN PRN Reason: Cough Last Admin: 04/13/19 19:53 Dose: 5 ml Ceftriaxone Sodium 1 gm/ (Sodium Chloride) 50 mls @ 100 mls/hr IV Q24H [facility] Last Admin: 04/13/19 20:22 Dose: 100 mls/hr Ibuprofen (Motrin) 600 mg PO Q6H PRN PRN Reason: Pain (mild 1-3) Last Admin: 04/13/19 02:20 Dose: 600 mg Insulin Aspart (Novolog) 0 unit SUBCUT TIDAC [facility]; Protocol Last Admin: 04/14/19 06:36 Dose: 2 unit Levalbuterol HCl (Xopenex) 1.25 mg NEB Q4HRRT PRN PRN Reason: Wheezing Last Admin: 04/14/19 09:16 Dose: 1.25 mg Levothyroxine Sodium (Levothyroxine) 75 mcg PO ACBREAKFAST [facility] Last Admin: 04/14/19 06:35 Dose: 75 mcg Methylprednisolone Sodium Succinate (Solu-Medrol) 40 mg IVPUSH DAILY [facility] Last Admin: 04/14/19 08:38 Dose: 40 mg Nicotine (Habitrol) 14 mg TRDERM DAILY PRN PRN Reason: Other Ondansetron HCl (Zofran Odt) 4 mg PO Q4H PRN PRN Reason: nausea, able to take PO Ondansetron HCl (Zofran) 4 mg IVPUSH Q4H PRN PRN Reason: Nausea Umeclidinium Brm/Vilanterol Tr 62.5/25 Mcg (Anoro)1 Puff 1 each INH DAILY [facility] Last Admin: 04/14/19 08:46 Dose: 1 each Polyethylene Glycol (Miralax) 17 gm PO DAILY PRN PRN Reason: Constipation Discontinued Medications Divalproex Sodium (Depakote) 500 mg PO TID [facility] Last Admin: 04/11/19 17:55 Dose: 500 mg Divalproex Sodium (Depakote) 500 mg PO DAILY@0800,1400,2200 [facility] Azithromycin 500 mg/ Sodium (Chloride) 250 mls @ 250 mls/hr IV DAILY [facility] Last Admin: 04/13/19 09:44 Dose: 250 mls/hr Ceftriaxone Sodium 1 gm/ (Sodium Chloride) 50 mls @ 100 mls/hr IV Q24H [facility] Last Admin: 04/11/19 21:39 Dose: Not Given Sodium Chloride (Normal Saline) 1,000 mls @ 100 mls/hr IV ASDIRECTED [facility] Last Admin: 04/12/19 01:11 Dose: 100 mls/hr Iopamidol (Isovue Multipack-370 (76%)) 50 ml IVPUSH ONETIME STA Stop: 04/11/19 18:34 Last Admin: 04/11/19 18:35 Dose: 50 ml Levalbuterol HCl (Xopenex) 1.25 mg NEB ONETIME ONE Stop: 04/11/19 15:45 Last Admin: 04/11/19 16:23 Dose: 1.25 mg Levalbuterol HCl (Xopenex) 1.25 mg NEB Q4HRRT [facility] Last Admin: 04/12/19 17:39 Dose: 1.25 mg Methylprednisolone Sodium Succinate (Solu-Medrol) 40 mg IVPUSH ONETIME ONE Stop: 04/11/19 15:47 Last Admin: 04/11/19 17:19 Dose: 40 mg Methylprednisolone Sodium Succinate (Solu-Medrol) 40 mg IVPUSH DAILY [facility] Last Admin: 04/12/19 08:34 Dose: 40 mg Methylprednisolone Sodium Succinate (Solu-Medrol) 40 mg IVPUSH BID [facility] Last Admin: 04/13/19 20:21 Dose: 40 mg - Exam Quality Assessment: Supplemental Oxygen General: Alert, Oriented, Cooperative, No Acute Distress Lungs: Normal Respiratory Effort, Decreased Breath Sounds, Rhonchi Cardiovascular: Regular Rate, Regular Rhythm GI/Abdominal Exam: Normal Bowel Sounds, Soft, Non-Tender Extremities: Normal Inspection, No Pedal Edema Sepsis Event Note - Evaluation Sepsis Screening Result: No Definite Risk - Focused Exam Vital Signs: Vital Signs Temp Pulse Resp BP Pulse Ox 04/14/19 08:00 36.3 C 82 18 103/71 92 L 04/14/19 04:00 36.2 C 82 18 102/62 95 04/14/19 00:00 36.2 C 89 18 110/59 L 94 L Date Exam was Performed: 04/14/19 Time Exam was Performed: 14:12 - Problem List Review Problem List Initiated/Reviewed/Updated: Yes - My Orders Last 24 Hours: My Active Orders 04/14/19 09:00 methylPREDNISolone Sod Succ [Solu-MEDROL] 40 mg IVPUSH DAILY 04/15/19 05:11 BASIC METABOLIC PANEL,BMP [CHEM] AM CBC WITH AUTO DIFF [HEME] AM - Plan Plan:: A: 1. Acute COPD exacerbation 2. Community acquired pneumonia 3. Mediastinal and hiatal adenopathy 4. Hyperglycemia 5. Iron deficiency anemia P: 1. Doing better today. Titrate O2 as tolerated with goal O2 sat >88%. Continue neb treatments PRN. Decreased methylprednisolone to once daily. Continue with Ceftriaxone and azithromycin. In regards to her anemia, will hold off on iron tabs for now due to acute setting. Will need outpatient follow-up with pulmonology for mediastinal adenopathy, COPD. Dispo: like dc tomorrow.
[2019-04-14] MEDS: Codeine/guaiFENesin 100-10 MG/5 ML Syrup 5 ML Cup PO PRN ×2 (14:04→22:04)
[2019-04-14] MEDS: Azithromycin 250 MG Tab PO SCH (15:43)
[2019-04-14] MEDS: Enoxaparin 40 MG/0.4 ML Syringe SUBCUT SCH (17:30)
[2019-04-14] MEDS: Escitalopram 10 MG Tab PO SCH (19:29)
[2019-04-14] MEDS: cefTRIAXone 1 GM in Sodium Chloride 0.9% 50 ML IV SCH (22:04)
[2019-04-15 06:49] LABS: BLOOD UREA NITROGEN,BUN 24 mg/dL (7.0-18.0); CHLORIDE,CL 100 mmol/L (98-107); GLUCOSE RANDOM 88 mg/dL (74-106); POTASSIUM,K 4.4 mmol/L (3.5-5.1); SODIUM,NA 136 mmol/L (136-145)
[2019-04-15] MEDS: Insulin Aspart 100 Units/ML 3 ML Pen SUBCUT SCH ×3 (07:28→18:19)
[2019-04-15] MEDS: Escitalopram 10 MG Tab PO SCH (08:24)
[2019-04-15] MEDS: Levothyroxine 75 MCG Tab PO SCH (08:25)
[2019-04-15] MEDS: Divalproex Sodium Delayed-Release 500 MG Tab.CR PO SCH ×3 (08:25→22:08)
[2019-04-15] MEDS: UMECLIDINIUM BRM INH SCH (08:26)
[2019-04-15] MEDS: VILANTEROL TR INH SCH (08:26)
[2019-04-15] MEDS: methylPREDNISolone Sodium Succinate 40 MG/1 ML SDV IVPUSH SCH (08:26)
[2019-04-15] MEDS: Fluticasone Furoate [Arnuity Ellipta] 1 PUFF INH SCH (08:32)
[2019-04-15] MEDS: Levalbuterol HCl 1.25 MG/3 ML Neb NEB PRN ×2 (10:53→20:58)
--- NOTE | 2019-04-15 11:04 | PCM.PN ---
- General Info Date of Service: 04/15/19 Subjective Update: No acute events overnight. On NC 3L with O2 sat >90%. Feels better today. She met with Dr. Gonzalez yesterday evening who ordered an Echo. - Patient Data Vitals - Most Recent: Last Vital Signs Temp 36.2 C 04/15/19 08:30 Pulse 66 04/15/19 08:30 Resp 20 04/15/19 08:30 BP 116/64 04/15/19 08:30 Pulse Ox 91 L 04/15/19 08:30 Weight - Most Recent: 68.9 kg I&O - Last 24 Hours: Intake & Output 04/14/19 04/15/19 04/15/19 22:59 06:59 14:59 Intake Total 950 Output Total 980 Balance -30 Lab Results Last 24 Hours: Laboratory Results - last 24 hr 04/14/19 04/14/19 04/15/19 Range/Units 11:41 16:44 06:01 WBC (4.0-11.0) K/uL RBC (4.30-5.90) M/uL Hgb (12.0-16.0) g/dL Hct (36.0-46.0) % MCV (80.0-98.0) fL MCH (27.0-32.0) pg MCHC (31.0-37.0) g/dL RDW Std Deviation (28.0-62.0) fl RDW Coeff of Drew (11.0-15.0) % Plt Count (150-400) K/uL MPV (7.40-12.00) fL Add Manual Diff Neutrophils % (Manual) (48.0-80.0) % Band Neutrophils % % Lymphocytes % (Manual) (16.0-40.0) % Nucleated RBC % /100WBC Absolute Seg Neuts (1.4-5.7) Band Neutrophils # Lymphocytes # (Manual) (0.6-2.4) Nucleated RBCs # K/uL Sodium 136 (136-145) mmol/L Potassium 4.4 (3.5-5.1) mmol/L Chloride 100 (98-107) mmol/L Carbon Dioxide 35.0 H (21.0-32.0) mmol/L BUN 24 H (7.0-18.0) mg/dL Creatinine 0.6 (0.6-1.0) mg/dL Est Cr Clr Drug Dosing 95.68 mL/min Estimated GFR (MDRD) > 60.0 ml/min Glucose 88 (74-106) mg/dL POC Glucose 118 H 138 H (60-110) mg/dL Calcium 8.4 L (8.5-10.1) mg/dL 04/15/19 04/15/19 04/15/19 Range/Units 06:01 06:38 10:36 WBC 10.09 (4.0-11.0) K/uL RBC 3.84 L (4.30-5.90) M/uL Hgb 12.3 (12.0-16.0) g/dL Hct 38.2 (36.0-46.0) % MCV 99.5 H (80.0-98.0) fL MCH 32.0 (27.0-32.0) pg MCHC 32.2 (31.0-37.0) g/dL RDW Std Deviation 48.6 (28.0-62.0) fl RDW Coeff of Drew 13 (11.0-15.0) % Plt Count 207 (150-400) K/uL MPV 10.20 (7.40-12.00) fL Add Manual Diff YES Neutrophils % (Manual) 55 (48.0-80.0) % Band Neutrophils % 8 % Lymphocytes % (Manual) 37 (16.0-40.0) % Nucleated RBC % 0.0 /100WBC Absolute Seg Neuts 5.5 (1.4-5.7) Band Neutrophils # 0.8 Lymphocytes # (Manual) 3.7 H (0.6-2.4) Nucleated RBCs # 0 K/uL Sodium (136-145) mmol/L Potassium (3.5-5.1) mmol/L Chloride (98-107) mmol/L Carbon Dioxide (21.0-32.0) mmol/L BUN (7.0-18.0) mg/dL Creatinine (0.6-1.0) mg/dL Est Cr Clr Drug Dosing mL/min Estimated GFR (MDRD) ml/min Glucose (74-106) mg/dL POC Glucose 83 88 (60-110) mg/dL Calcium (8.5-10.1) mg/dL Med Orders - Current: Current Medications Acetaminophen (Tylenol) 650 mg PO Q4H PRN PRN Reason: Pain (Mild 1-3)/fever Last Admin: 04/11/19 17:55 Dose: 650 mg Azithromycin (Zithromax) 500 mg PO Q24H [facility] Last Admin: 04/14/19 15:43 Dose: 500 mg Benzonatate (Tessalon Perles) 100 mg PO Q6H PRN PRN Reason: Cough Last Admin: 04/14/19 22:04 Dose: 100 mg Divalproex Sodium (Depakote) 500 mg PO DAILY@0800,1400,2200 [facility] Last Admin: 04/15/19 08:25 Dose: 500 mg Docusate Sodium (Colace) 100 mg PO BID PRN PRN Reason: Constipation Enoxaparin Sodium (Lovenox) 40 mg SUBCUT Q24H [facility] Last Admin: 04/14/19 17:30 Dose: 40 mg Escitalopram Oxalate (Lexapro) 20 mg PO DAILY [facility] Last Admin: 04/15/19 08:24 Dose: 20 mg Guaifenesin/Codeine Phosphate (Robitussin Ac) 5 ml PO Q6H PRN PRN Reason: Cough Last Admin: 04/14/19 22:04 Dose: 5 ml Ceftriaxone Sodium 1 gm/ (Sodium Chloride) 50 mls @ 100 mls/hr IV Q24H [facility] Last Admin: 04/14/19 22:04 Dose: 100 mls/hr Ibuprofen (Motrin) 600 mg PO Q6H PRN PRN Reason: Pain (mild 1-3) Last Admin: 04/13/19 02:20 Dose: 600 mg Insulin Aspart (Novolog) 0 unit SUBCUT TIDAC [facility]; Protocol Last Admin: 04/15/19 10:40 Dose: Not Given Levalbuterol HCl (Xopenex) 1.25 mg NEB Q4HRRT PRN PRN Reason: Wheezing Last Admin: 04/15/19 10:53 Dose: 1.25 mg Levothyroxine Sodium (Levothyroxine) 75 mcg PO ACBREAKFAST [facility] Last Admin: 04/15/19 08:25 Dose: 75 mcg Methylprednisolone Sodium Succinate (Solu-Medrol) 40 mg IVPUSH DAILY [facility] Last Admin: 04/15/19 08:26 Dose: 40 mg Nicotine (Habitrol) 14 mg TRDERM DAILY PRN PRN Reason: Other Ondansetron HCl (Zofran Odt) 4 mg PO Q4H PRN PRN Reason: nausea, able to take PO Ondansetron HCl (Zofran) 4 mg IVPUSH Q4H PRN PRN Reason: Nausea Umeclidinium Brm/Vilanterol Tr 62.5/25 Mcg (Anoro)1 Puff 1 each INH DAILY [facility] Last Admin: 04/15/19 08:26 Dose: 1 each Fluticasone Furoate [Arnuity Ellipta] 1 Puff 1 each INH DAILY [facility] Last Admin: 04/15/19 08:32 Dose: Not Given Polyethylene Glycol (Miralax) 17 gm PO DAILY PRN PRN Reason: Constipation Discontinued Medications Divalproex Sodium (Depakote) 500 mg PO TID [facility] Last Admin: 04/11/19 17:55 Dose: 500 mg Divalproex Sodium (Depakote) 500 mg PO DAILY@0800,1400,2200 [facility] Azithromycin 500 mg/ Sodium (Chloride) 250 mls @ 250 mls/hr IV DAILY [facility] Last Admin: 04/13/19 09:44 Dose: 250 mls/hr Ceftriaxone Sodium 1 gm/ (Sodium Chloride) 50 mls @ 100 mls/hr IV Q24H [facility] Last Admin: 04/11/19 21:39 Dose: Not Given Sodium Chloride (Normal Saline) 1,000 mls @ 100 mls/hr IV ASDIRECTED [facility] Last Admin: 04/12/19 01:11 Dose: 100 mls/hr Iopamidol (Isovue Multipack-370 (76%)) 50 ml IVPUSH ONETIME STA Stop: 04/11/19 18:34 Last Admin: 04/11/19 18:35 Dose: 50 ml Levalbuterol HCl (Xopenex) 1.25 mg NEB ONETIME ONE Stop: 04/11/19 15:45 Last Admin: 04/11/19 16:23 Dose: 1.25 mg Levalbuterol HCl (Xopenex) 1.25 mg NEB Q4HRRT [facility] Last Admin: 04/12/19 17:39 Dose: 1.25 mg Methylprednisolone Sodium Succinate (Solu-Medrol) 40 mg IVPUSH ONETIME ONE Stop: 04/11/19 15:47 Last Admin: 04/11/19 17:19 Dose: 40 mg Methylprednisolone Sodium Succinate (Solu-Medrol) 40 mg IVPUSH DAILY [facility] Last Admin: 04/12/19 08:34 Dose: 40 mg Methylprednisolone Sodium Succinate (Solu-Medrol) 40 mg IVPUSH BID [facility] Last Admin: 04/13/19 20:21 Dose: 40 mg - Exam Quality Assessment: Supplemental Oxygen General: Alert, Oriented, Cooperative Lungs: Rhonchi, Wheezing Cardiovascular: Regular Rate, Regular Rhythm GI/Abdominal Exam: Normal Bowel Sounds, Soft, Non-Tender, No Distention Extremities: Normal Inspection, No Pedal Edema Skin: Warm, Dry Sepsis Event Note - Evaluation Sepsis Screening Result: No Definite Risk - Focused Exam Vital Signs: Vital Signs Temp Pulse Resp BP Pulse Ox 04/15/19 08:30 36.2 C 66 20 116/64 91 L 04/15/19 08:00 36.2 C 66 20 116/64 91 L 04/15/19 02:00 79 18 118/68 90 L Date Exam was Performed: 04/15/19 Time Exam was Performed: 13:50 - Problem List Review Problem List Initiated/Reviewed/Updated: Yes - My Orders Last 24 Hours: My Active Orders 04/14/19 18:45 Escitalopram [Lexapro] 20 mg PO DAILY 04/15/19 09:00 Patient's Own Medication [Ptom] 1 each INH DAILY - Plan Plan:: A: 1. Acute COPD exacerbation 2. Community acquired pneumonia 3. Mediastinal and hiatal adenopathy 4. Hyperglycemia 5. Iron deficiency anemia P: 1. Improving. Will monitor today and continue with current medical management. Will need Home O2 test with exertion since she may need more than 3 L/min. Will plan to DC tomorrow. Dispo: plan to dc tomorrow.
[2019-04-15] MEDS: Azithromycin 250 MG Tab PO SCH ×2 (14:52→17:15)
[2019-04-15] MEDS: Enoxaparin 40 MG/0.4 ML Syringe SUBCUT SCH (18:23)
[2019-04-15] MEDS: cefTRIAXone 1 GM in Sodium Chloride 0.9% 50 ML IV SCH (20:11)
[2019-04-15] MEDS: Codeine/guaiFENesin 100-10 MG/5 ML Syrup 5 ML Cup PO PRN (22:08)
[2019-04-15] MEDS: Benzonatate 100 MG Cap PO PRN (22:08)
[2019-04-16 06:21] LABS: BLOOD UREA NITROGEN,BUN 27 mg/dL (7.0-18.0); CHLORIDE,CL 100 mmol/L (98-107); GLUCOSE RANDOM 77 mg/dL (74-106); POTASSIUM,K 5.2 mmol/L (3.5-5.1); SODIUM,NA 138 mmol/L (136-145)
--- NOTE | 2019-04-16 07:05 | PCM.DCSUM1 ---
<Nestor Kimball - Last Filed: 04/16/19 14:48> Discharge Summary - Hospital Course Free Text/Narrative:: 58 y/o female with history of COPD who was admitted directly from clinic due to acute COPD exacerbation requiring 10 L/min NC. She was found to have community acquired pneumonia for which ceftriaxone and azithromycin were started. She received scheduled nebulizer treatments every 4 hours for 4 doses and started on methylprednisolone. She was able to be wean down to 3 L/min O2 NC. Home oxygen test showed that she was hypoxic with exertion needing 3 L/min O2 NC. In addition, CT chest showed mediastinal and hiatal adenopathy. She will need to follow-up with pulmonology to re-evaluate mediastinal and hiatal adenopathy. She was discharged home on Augmentin, azithromycin, prednisone. She was on 3 L/ min NC with O2 sat 90%. She was advised to follow-up with her PCP and pulmonology as outpatient. - Discharge Data Discharge Date: 04/16/19 Discharge Disposition: Home, Self-Care 01 Condition: Good - Referral to Home Health Primary Care Physician: Omkar Davis MD - Patient Instructions Diet: Regular Diet as Tolerated Activity: As Tolerated - Discharge Plan *PRESCRIPTION DRUG MONITORING PROGRAM REVIEWED*: Not Applicable *COPY OF PRESCRIPTION DRUG MONITORING REPORT IN PATIENT CUBA: Not Applicable Prescriptions/Med Rec: Amoxicillin/Clavulanate K [Augmentin 875-125 MG] 1 tab PO BID 4 Days #8 tablet Azithromycin [Zithromax] 500 mg PO Q24H 4 Days #4 tablet Escitalopram Oxalate [Lexapro] 20 mg PO DAILY 30 Days #30 tablet predniSONE 20 mg PO WITHBREAKFAST 5 Days #5 tab Home Medications: Home Meds Divalproex Sodium [Depakote] 500 mg PO TID 04/01/18 [History] Levothyroxine Sodium [Levoxyl] 75 mcg PO ACBREAKFAST 04/01/18 [History] Multivitamins [Tab-A-Macho] 1 tab PO DAILY 04/01/18 [History] Umeclidinium Brm/Vilanterol Tr [Anoro Ellipta 62.5-25 MCG] 1 puff INH DAILY #1 inhaler 04/07/18 [Rx] Ascorbic Acid [Vitamin C] 1,000 tab PO DAILY 02/11/19 [History] Calcium Carb/Vitamin D3/Vit K1 [Calcium + D Soft Chewable Tab] 1,000 tab PO BID 02/11/19 [History] Fluticasone Furoate [Arnuity Ellipta] 1 puff IH DAILY 04/12/19 [History] Amoxicillin/Clavulanate K [Augmentin 875-125 MG] 1 tab PO BID 4 Days #8 tablet 04/16/19 [Rx] Azithromycin [Zithromax] 500 mg PO Q24H 4 Days #4 tablet 04/16/19 [Rx] Codeine/guaiFENesin [Robitussin AC] 5 ml PO Q6H PRN #0 cup 04/16/19 [Rx] Escitalopram Oxalate [Lexapro] 20 mg PO DAILY 30 Days #30 tablet 04/16/19 [Rx] predniSONE 20 mg PO WITHBREAKFAST 5 Days #5 tab 04/16/19 [Rx] Patient Handouts: Chronic Obstructive Pulmonary Disease Exacerbation, Easy-to- Read, Amoxicillin; Clavulanic Acid tablets, Azithromycin tablets, Prednisolone tablets Referrals: Nestor Kimball MD [Resident] - 04/22/19 3:15 pm - Discharge Summary/Plan Comment DC Time >30 min.: No - Patient Data Vitals - Most Recent: Last Vital Signs Temp 36.1 C 04/15/19 22:06 Pulse 91 04/15/19 22:06 Resp 18 04/15/19 22:06 BP 112/55 L 04/15/19 22:06 Pulse Ox 89 L 04/15/19 22:06 Weight - Most Recent: 68.9 kg I&O - Last 24 hours: Intake & Output 04/15/19 04/16/19 04/16/19 22:59 06:59 14:59 Intake Total 1050 300 Output Total 200 Balance 1050 100 Lab Results - Last 24 hrs: Laboratory Results - last 24 hr 04/15/19 04/15/19 04/15/19 Range/Units 10:36 17:01 22:13 WBC (4.0-11.0) K/uL RBC (4.30-5.90) M/uL Hgb (12.0-16.0) g/dL Hct (36.0-46.0) % MCV (80.0-98.0) fL MCH (27.0-32.0) pg MCHC (31.0-37.0) g/dL RDW Std Deviation (28.0-62.0) fl RDW Coeff of Drew (11.0-15.0) % Plt Count (150-400) K/uL MPV (7.40-12.00) fL Add Manual Diff Neutrophils % (Manual) (48.0-80.0) % Band Neutrophils % % Lymphocytes % (Manual) (16.0-40.0) % Monocytes % (Manual) (0.0-15.0) % Metamyelocytes % % Nucleated RBC % /100WBC Absolute Seg Neuts (1.4-5.7) Band Neutrophils # Lymphocytes # (Manual) (0.6-2.4) Monocytes # (Manual) (0.0-0.8) Absolute Metamyelocyte Nucleated RBCs % Nucleated RBCs # K/uL Sodium (136-145) mmol/L Potassium (3.5-5.1) mmol/L Chloride (98-107) mmol/L Carbon Dioxide (21.0-32.0) mmol/L BUN (7.0-18.0) mg/dL Creatinine (0.6-1.0) mg/dL Est Cr Clr Drug Dosing mL/min Estimated GFR (MDRD) ml/min Glucose (74-106) mg/dL POC Glucose 88 121 H 191 H (60-110) mg/dL Calcium (8.5-10.1) mg/dL 04/16/19 04/16/19 Range/Units 05:52 05:52 WBC 9.25 (4.0-11.0) K/uL RBC 3.84 L (4.30-5.90) M/uL Hgb 12.3 (12.0-16.0) g/dL Hct 38.6 (36.0-46.0) % MCV 100.5 H (80.0-98.0) fL MCH 32.0 (27.0-32.0) pg MCHC 31.9 (31.0-37.0) g/dL RDW Std Deviation 49.1 (28.0-62.0) fl RDW Coeff of Drew 13 (11.0-15.0) % Plt Count 225 (150-400) K/uL MPV 9.80 (7.40-12.00) fL Add Manual Diff YES Neutrophils % (Manual) 58 (48.0-80.0) % Band Neutrophils % 2 % Lymphocytes % (Manual) 32 (16.0-40.0) % Monocytes % (Manual) 5 (0.0-15.0) % Metamyelocytes % 3 % Nucleated RBC % 0.3 /100WBC Absolute Seg Neuts 5.4 (1.4-5.7) Band Neutrophils # 0.2 Lymphocytes # (Manual) 3.0 H (0.6-2.4) Monocytes # (Manual) 0.5 (0.0-0.8) Absolute Metamyelocyte 0.3 Nucleated RBCs 1 % Nucleated RBCs # 0 K/uL Sodium 138 (136-145) mmol/L Potassium 5.2 H (3.5-5.1) mmol/L Chloride 100 (98-107) mmol/L Carbon Dioxide 37.0 H (21.0-32.0) mmol/L BUN 27 H (7.0-18.0) mg/dL Creatinine 0.7 (0.6-1.0) mg/dL Est Cr Clr Drug Dosing 82.01 mL/min Estimated GFR (MDRD) > 60.0 ml/min Glucose 77 (74-106) mg/dL POC Glucose (60-110) mg/dL Calcium 8.3 L (8.5-10.1) mg/dL Med Orders - Current: Current Medications Acetaminophen (Tylenol) 650 mg PO Q4H PRN PRN Reason: Pain (Mild 1-3)/fever Last Admin: 04/11/19 17:55 Dose: 650 mg Azithromycin (Zithromax) 500 mg PO Q24H [facility] Last Admin: 04/15/19 17:15 Dose: Not Given Benzonatate (Tessalon Perles) 100 mg PO Q6H PRN PRN Reason: Cough Last Admin: 04/15/19 22:08 Dose: 100 mg Divalproex Sodium (Depakote) 500 mg PO DAILY@0800,1400,2200 [facility] Last Admin: 04/15/19 22:08 Dose: 500 mg Docusate Sodium (Colace) 100 mg PO BID PRN PRN Reason: Constipation Enoxaparin Sodium (Lovenox) 40 mg SUBCUT Q24H [facility] Last Admin: 04/15/19 18:23 Dose: 40 mg Escitalopram Oxalate (Lexapro) 20 mg PO DAILY [facility] Last Admin: 04/15/19 08:24 Dose: 20 mg Guaifenesin/Codeine Phosphate (Robitussin Ac) 5 ml PO Q6H PRN PRN Reason: Cough Last Admin: 04/15/19 22:08 Dose: 5 ml Ceftriaxone Sodium 1 gm/ (Sodium Chloride) 50 mls @ 100 mls/hr IV Q24H [facility] Last Admin: 04/15/19 20:11 Dose: 100 mls/hr Ibuprofen (Motrin) 600 mg PO Q6H PRN PRN Reason: Pain (mild 1-3) Last Admin: 04/13/19 02:20 Dose: 600 mg Insulin Aspart (Novolog) 0 unit SUBCUT TIDAC [facility]; Protocol Last Admin: 04/15/19 18:19 Dose: Not Given Levalbuterol HCl (Xopenex) 1.25 mg NEB Q4HRRT PRN PRN Reason: Wheezing Last Admin: 04/15/19 20:58 Dose: 1.25 mg Levothyroxine Sodium (Levothyroxine) 75 mcg PO ACBREAKFAST [facility] Last Admin: 04/15/19 08:25 Dose: 75 mcg Methylprednisolone Sodium Succinate (Solu-Medrol) 40 mg IVPUSH DAILY [facility] Last Admin: 04/15/19 08:26 Dose: 40 mg Nicotine (Habitrol) 14 mg TRDERM DAILY PRN PRN Reason: Other Ondansetron HCl (Zofran Odt) 4 mg PO Q4H PRN PRN Reason: nausea, able to take PO Ondansetron HCl (Zofran) 4 mg IVPUSH Q4H PRN PRN Reason: Nausea Umeclidinium Brm/Vilanterol Tr 62.5/25 Mcg (Anoro)1 Puff 1 each INH DAILY [facility] Last Admin: 04/15/19 08:26 Dose: 1 each Fluticasone Furoate [Arnuity Ellipta] 1 Puff 1 each INH DAILY [facility] Last Admin: 04/15/19 08:32 Dose: Not Given Polyethylene Glycol (Miralax) 17 gm PO DAILY PRN PRN Reason: Constipation Discontinued Medications Divalproex Sodium (Depakote) 500 mg PO TID [facility] Last Admin: 04/11/19 17:55 Dose: 500 mg Divalproex Sodium (Depakote) 500 mg PO DAILY@0800,1400,2200 [facility] Azithromycin 500 mg/ Sodium (Chloride) 250 mls @ 250 mls/hr IV DAILY [facility] Last Admin: 04/13/19 09:44 Dose: 250 mls/hr Ceftriaxone Sodium 1 gm/ (Sodium Chloride) 50 mls @ 100 mls/hr IV Q24H [facility] Last Admin: 04/11/19 21:39 Dose: Not Given Sodium Chloride (Normal Saline) 1,000 mls @ 100 mls/hr IV ASDIRECTED [facility] Last Admin: 04/12/19 01:11 Dose: 100 mls/hr Iopamidol (Isovue Multipack-370 (76%)) 50 ml IVPUSH ONETIME STA Stop: 04/11/19 18:34 Last Admin: 04/11/19 18:35 Dose: 50 ml Levalbuterol HCl (Xopenex) 1.25 mg NEB ONETIME ONE Stop: 04/11/19 15:45 Last Admin: 04/11/19 16:23 Dose: 1.25 mg Levalbuterol HCl (Xopenex) 1.25 mg NEB Q4HRRT [facility] Last Admin: 04/12/19 17:39 Dose: 1.25 mg Methylprednisolone Sodium Succinate (Solu-Medrol) 40 mg IVPUSH ONETIME ONE Stop: 04/11/19 15:47 Last Admin: 04/11/19 17:19 Dose: 40 mg Methylprednisolone Sodium Succinate (Solu-Medrol) 40 mg IVPUSH DAILY [facility] Last Admin: 04/12/19 08:34 Dose: 40 mg Methylprednisolone Sodium Succinate (Solu-Medrol) 40 mg IVPUSH BID [facility] Last Admin: 04/13/19 20:21 Dose: 40 mg <Dinesh Fan J - Last Filed: 04/17/19 16:25> Discharge Summary - Referral to Home Health Primary Care Physician: Omkar Davis MD - Patient Data Vitals - Most Recent: Last Vital Signs Temp 36.2 C 04/16/19 11:42 Pulse 84 04/16/19 11:42 Resp 20 04/16/19 11:42 BP 115/75 04/16/19 11:42 Pulse Ox 86 L 04/16/19 11:42 Med Orders - Current: Current Medications Discontinued Medications Acetaminophen (Tylenol) 650 mg PO Q4H PRN PRN Reason: Pain (Mild 1-3)/fever Last Admin: 04/11/19 17:55 Dose: 650 mg Azithromycin (Zithromax) 500 mg PO Q24H [facility] Last Admin: 04/15/19 17:15 Dose: Not Given Benzonatate (Tessalon Perles) 100 mg PO Q6H PRN PRN Reason: Cough Last Admin: 04/15/19 22:08 Dose: 100 mg Divalproex Sodium (Depakote) 500 mg PO TID [facility] Last Admin: 04/11/19 17:55 Dose: 500 mg Divalproex Sodium (Depakote) 500 mg PO DAILY@0800,1400,2200 [facility] Divalproex Sodium (Depakote) 500 mg PO DAILY@0800,1400,2200 [facility] Last Admin: 04/16/19 08:26 Dose: 500 mg Docusate Sodium (Colace) 100 mg PO BID PRN PRN Reason: Constipation Enoxaparin Sodium (Lovenox) 40 mg SUBCUT Q24H [facility] Last Admin: 04/15/19 18:23 Dose: 40 mg Escitalopram Oxalate (Lexapro) 20 mg PO DAILY [facility] Last Admin: 04/16/19 08:26 Dose: 20 mg Guaifenesin/Codeine Phosphate (Robitussin Ac) 5 ml PO Q6H PRN PRN Reason: Cough Last Admin: 04/15/19 22:08 Dose: 5 ml Azithromycin 500 mg/ Sodium (Chloride) 250 mls @ 250 mls/hr IV DAILY [facility] Last Admin: 04/13/19 09:44 Dose: 250 mls/hr Ceftriaxone Sodium 1 gm/ (Sodium Chloride) 50 mls @ 100 mls/hr IV Q24H [facility] Last Admin: 04/11/19 21:39 Dose: Not Given Ceftriaxone Sodium 1 gm/ (Sodium Chloride) 50 mls @ 100 mls/hr IV Q24H [facility] Last Admin: 04/15/19 20:11 Dose: 100 mls/hr Sodium Chloride (Normal Saline) 1,000 mls @ 100 mls/hr IV ASDIRECTED [facility] Last Admin: 04/12/19 01:11 Dose: 100 mls/hr Ibuprofen (Motrin) 600 mg PO Q6H PRN PRN Reason: Pain (mild 1-3) Last Admin: 04/13/19 02:20 Dose: 600 mg Insulin Aspart (Novolog) 0 unit SUBCUT TIDAC [facility]; Protocol Last Admin: 04/16/19 13:38 Dose: Not Given Iopamidol (Isovue Multipack-370 (76%)) 50 ml IVPUSH ONETIME STA Stop: 04/11/19 18:34 Last Admin: 04/11/19 18:35 Dose: 50 ml Levalbuterol HCl (Xopenex) 1.25 mg NEB ONETIME ONE Stop: 04/11/19 15:45 Last Admin: 04/11/19 16:23 Dose: 1.25 mg Levalbuterol HCl (Xopenex) 1.25 mg NEB Q4HRRT PRN PRN Reason: Wheezing Last Admin: 04/16/19 12:29 Dose: 1.25 mg Levalbuterol HCl (Xopenex) 1.25 mg NEB Q4HRRT [facility] Last Admin: 04/12/19 17:39 Dose: 1.25 mg Levothyroxine Sodium (Levothyroxine) 75 mcg PO ACBREAKFAST [facility] Last Admin: 04/16/19 08:26 Dose: 75 mcg Methylprednisolone Sodium Succinate (Solu-Medrol) 40 mg IVPUSH ONETIME ONE Stop: 04/11/19 15:47 Last Admin: 04/11/19 17:19 Dose: 40 mg Methylprednisolone Sodium Succinate (Solu-Medrol) 40 mg IVPUSH DAILY [facility] Last Admin: 04/12/19 08:34 Dose: 40 mg Methylprednisolone Sodium Succinate (Solu-Medrol) 40 mg IVPUSH BID [facility] Last Admin: 04/13/19 20:21 Dose: 40 mg Methylprednisolone Sodium Succinate (Solu-Medrol) 40 mg IVPUSH DAILY [facility] Last Admin: 04/16/19 09:01 Dose: 40 mg Nicotine (Habitrol) 14 mg TRDERM DAILY PRN PRN Reason: Other Ondansetron HCl (Zofran Odt) 4 mg PO Q4H PRN PRN Reason: nausea, able to take PO Ondansetron HCl (Zofran) 4 mg IVPUSH Q4H PRN PRN Reason: Nausea Umeclidinium Brm/Vilanterol Tr 62.5/25 Mcg (Anoro)1 Puff 1 each INH DAILY [facility] Last Admin: 03/04/20 08:26 Dose: 1 each Fluticasone Furoate [Arnuity Ellipta] 1 Puff 1 each INH DAILY [facility] Last Admin: 04/16/19 08:26 Dose: Not Given Polyethylene Glycol (Miralax) 17 gm PO DAILY PRN PRN Reason: Constipation - Free Text/Narrative Note: I have seen and examined the patient with the resident. I have discussed the findings and treatment plan with the resident. I agree with the assessment and plan as outlined in the following note.
[2019-04-16] MEDS: VILANTEROL TR INH SCH (08:26)
[2019-04-16] MEDS: Fluticasone Furoate [Arnuity Ellipta] 1 PUFF INH SCH (08:26)
[2019-04-16] MEDS: Levothyroxine 75 MCG Tab PO SCH (08:26)
[2019-04-16] MEDS: Divalproex Sodium Delayed-Release 500 MG Tab.CR PO SCH (08:26)
[2019-04-16] MEDS: UMECLIDINIUM BRM INH SCH (08:26)
[2019-04-16] MEDS: Escitalopram 10 MG Tab PO SCH (08:26)
[2019-04-16] MEDS: Insulin Aspart 100 Units/ML 3 ML Pen SUBCUT SCH ×2 (08:35→13:38)
[2019-04-16] MEDS: methylPREDNISolone Sodium Succinate 40 MG/1 ML SDV IVPUSH SCH (09:01)
--- NOTE | 2019-04-16 09:25 | US ---
Carotid ultrasound: Duplex and color flow imaging was obtained of the carotid arteries. No plaque is identified. Comparison: No prior carotid imaging is available. Right side: CCA has a peak systolic velocity of 1.01 m/sec. ICA has a peak systolic velocity of 0.93 m/sec and peak end-diastolic velocity of 0.42 m/sec. ECA has a peak systolic velocity of 0.99 m/sec. Vertebral artery has a peak systolic velocity of 0.71 m/sec. ICA/CCA ratio is 1.03. Left side: CCA has a peak systolic velocity of 1.15 m/sec. ICA has a peak systolic velocity of 0.95 m/sec and peak end-diastolic velocity of 0.34 m/sec. ECA has a peak systolic velocity of 1.03 m/sec. Vertebral artery has a peak systolic velocity of 0.36 m/sec. ICA/CCA ratio is 0.92. Impression: 1. No plaque is identified. 2. Normal velocity measurements are noted. Diagnostic code #1 This report was dictated in [place] Standard Time
[2019-04-16 11:45] VITALS: BP 115/75; PULSE 84
[2019-04-16] MEDS: Levalbuterol HCl 1.25 MG/3 ML Neb NEB PRN (12:29)
--- NOTE | 2019-04-16 14:36 | CONS ---
DATE OF CONSULTATION: 04/16/2019 DATE OF : 1960 PRIMARY CARE PHYSICIAN: Omkar Davis M.D. REASON FOR CONSULTATION: Leg swelling and shortness of breath. HISTORY OF PRESENT ILLNESS: This is a 58-year-old female with history of former heavy smoker, history of severe COPD, oxygen dependent day and night. She presented to the hospital with hypoxic respiratory failure. She was treated with steroids as well as the antibiotics and oxygen therapy. Now, she feels much improved but still slightly short of breath, and the reason I was asked to see her because in January, she was seen by her primary care doctor and she complained about being shortness of breath as well as the increased leg swelling. She was given Lasix 40 mg for a week and then she stopped. Her leg swelling went down and she was supposed to come to see me in April; however, because of this hospitalization, she was not showing up and she was sad. She asked me to see her in the hospital. REVIEW OF SYSTEMS: She denies chest pain. No orthopnea. Her leg swelling is very minimal currently. REVIEW OF SYSTEMS: Otherwise, review of systems has been negative except indicated in HPI. PAST MEDICAL HISTORY: Including COPD, heavy smoker. Denies history of heart failure or heart attack. HOME MEDICATIONS: Including inhalers. PAST SURGICAL HISTORY: Appendectomy and knee surgery. FAMILY HISTORY: Father and mother had a history of COPD. SOCIAL HISTORY: Former heavy smoker who just quit it like a month ago. PHYSICAL EXAMINATION: VITAL SIGNS: The blood pressure is 116/64, heart rate of 77, O2 saturation is in 89-91 on 2-3 L, temperature is 97.5, respiration 18. HEENT: Not pale. No jaundice known. I did not see the JVD elevation. HEART: Regular rate and rhythm. No murmur. LUNGS: Expiratory wheezing. ABDOMEN: Soft and nontender. Bowel sounds are present. No hepatosplenomegaly. EXTREMITIES: Legs, no edema. DIAGNOSTIC DATA: EKG April 14, 2019, showing sinus rhythm, heart rate of 86, ME interval 115, QRS duration 80, QTc 402. Echocardiogram is still pending. CBC showed WBC of 10, hematocrit of 38, platelet 207. Sodium 136, potassium 4.4, chloride 100, bicarb 35, BUN 24, and creatinine 0.6. ASSESSMENT AND PLAN: This is a 58-year-old female with a history of former heavy smoker, severe chronic obstructive pulmonary disease, O2 dependent, presented to hospital with shortness of breath, recently treated with diuretics. Currently, she is not volume overloaded on my exam. Her leg edema probably very trace. No JVD elevation, but she may need a Lasix depending on the echocardiogram. I will repeat an echo again, and I will also check a BNP. MARANDA / LUIS /[id number]
--- NOTE | 2019-04-17 13:24 | ECHO ---
EXAM DATE: 04/11/19 PATIENT'S AGE: 58 The echocardiogram report can be seen in this patient's EMR (Electronic Medical Record) in the REPORTS section. The report has also been scanned into PACs. YOHANNES
== END 2019-04-16 13:15 | disposition home or self-care (01) | DRG 139 ==
LOC: MW.MS 15:28
PROVIDERS: ADMIT Internal Medicine; ATTEND Internal Medicine
DX: J18.9 Pneumonia, unspecified organism (principal); J96.01 Acute respiratory failure with hypoxia; R59.0 Localized enlarged lymph nodes; D50.9 Iron deficiency anemia, unspecified; J44.0 Chronic obstructive pulmonary disease with (acute) lower respiratory infection; J44.1 Chronic obstructive pulmonary disease with (acute) exacerbation; R73.9 Hyperglycemia, unspecified; T38.0X5A Adverse effect of glucocorticoids and synthetic analogues, initial encounter; F17.200 Nicotine dependence, unspecified, uncomplicated; F32.9 Major depressive disorder, single episode, unspecified; G40.909 Epilepsy, unspecified, not intractable, without status epilepticus; Z88.2 Allergy status to sulfonamides; Z79.890 Hormone replacement therapy; Z79.899 Other long term (current) drug therapy; Z90.49 Acquired absence of other specified parts of digestive tract
CPT/HCPCS: 36415; 71045; 71045-26; 71275; 71275-26; 80048; 80053; 80061; 82272; 82607; 82728; 82746; 82962; 83036; 83550; 85025; 87804; 88104; 93005; 93306; 93880; 93880-26; 94640; A9270-GY; J0456; J0696; J1650; J1815-GY; J2920; J7030; J7050; J7612-GY; Q9967

== ENCOUNTER 2020-07-25 00:41 | Emergency (ER) | payer BC ==
[2020-07-25] MEDS ORDERED: methylPREDNISolone Sodium Succinate 125 MG/2 ML SDV IVPUSH ONE (00:55)
[2020-07-25] MEDS ORDERED: Albuterol/Ipratropium 3.0-0.5 MG/3 ML Neb Soln NEB ONE (00:55)
[2020-07-25] MEDS ORDERED: Magnesium Sulfate (4.06 MEQ/ML) 5 GM/10 ML SDV IV STA (01:00)
--- NOTE | 2020-07-25 01:03 | EDM.PDOC ---
ED HPI GENERAL MEDICAL PROBLEM - General Chief Complaint: Respiratory Problem Stated Complaint: COPD Time Seen by Provider: 07/25/20 00:49 Source of Information: Reports: Patient History Limitations: Reports: No Limitations - History of Present Illness INITIAL COMMENTS - FREE TEXT/NARRATIVE: Patient is a 60-year-old female who presents today for shortness of breath. Patient has history of COPD and chronically wears oxygen. Patient is currently on 4 L at 95%. Patient states that the past few days has been using her butyryl nebulizers more than normal. Patient was reports taking a Z-Kojo about a week ago that has not improved the symptoms. Patient reports a more productive cough today. Patient has any fever chills. Patient does report some right-sided rib pain denies any radiation of the makes better or worse he does not take any medicine for it at home. Patient denies any other complaints. chest Pain Score (Numeric/FACES): 8 - Related Data Allergies Allergy/AdvReac Type Severity Reaction Status Date / Time Sulfa (Sulfonamide Allergy Rash Verified 07/25/20 00:48 Antibiotics) Home Meds: Home Meds Divalproex Sodium [Depakote] 500 mg PO TID 04/01/18 [History] Levothyroxine Sodium [Levoxyl] 75 mcg PO ACBREAKFAST 04/01/18 [History] Multivitamins [Tab-A-Macho] 1 tab PO DAILY 04/01/18 [History] Umeclidinium Brm/Vilanterol Tr [Anoro Ellipta 62.5-25 MCG] 1 puff INH DAILY #1 inhaler 04/07/18 [Rx] Ascorbic Acid [Vitamin C] 1,000 tab PO DAILY 02/11/19 [History] Calcium Carb/Vitamin D3/Vit K1 [Calcium + D Soft Chewable Tab] 1,000 tab PO BID 02/11/19 [History] Fluticasone Furoate [Arnuity Ellipta] 1 puff IH DAILY 04/12/19 [History] Amoxicillin/Clavulanate K [Augmentin 875-125 MG] 1 tab PO BID 4 Days #8 tablet 04/16/19 [Rx] Azithromycin [Zithromax] 500 mg PO Q24H 4 Days #4 tablet 04/16/19 [Rx] Codeine/guaiFENesin [Robitussin AC] 5 ml PO Q6H PRN #0 cup 03/04/20 [Rx] Escitalopram Oxalate [Lexapro] 20 mg PO DAILY 30 Days #30 tablet 04/16/19 [Rx] predniSONE 20 mg PO WITHBREAKFAST 5 Days #5 tab 04/16/19 [Rx] Past Medical History HEENT History: Reports: None Cardiovascular History: Reports: None Respiratory History: Reports: COPD Gastrointestinal History: Reports: None Genitourinary History: Reports: None [employer] History: Reports: Musculoskeletal History: Reports: Fracture Other Musculoskeletal History: ribs Neurological History: Reports: Seizure Psychiatric History: Reports: None Endocrine/Metabolic History: Reports: None Hematologic History: Reports: None Immunologic History: Reports: None Oncologic (Cancer) History: Reports: None Dermatologic History: Reports: None - Infectious Disease History Infectious Disease History: Reports: Chicken Pox Other Infectious Disease History: childhood - Past Surgical History Head Surgeries/Procedures: Reports: None HEENT Surgical History: Reports: None Cardiovascular Surgical History: Reports: None Respiratory Surgical History: Reports: None GI Surgical History: Reports: None Female Surgical History: Reports: None Endocrine Surgical History: Reports: None Neurological Surgical History: Reports: None Musculoskeletal Surgical History: Reports: None Oncologic Surgical History: Reports: None Dermatological Surgical History: Reports: None Social & Family History - Family History Family Medical History: No Pertinent Family History - Caffeine Use Caffeine Use: Reports: Soda ED ROS GENERAL - Review of Systems Review Of Systems: See Below Constitutional: Reports: No Symptoms HEENT: Reports: No Symptoms Respiratory: Reports: Shortness of Breath Cardiovascular: Reports: No Symptoms Endocrine: Reports: No Symptoms GI/Abdominal: Reports: No Symptoms : Reports: No Symptoms Musculoskeletal: Reports: No Symptoms Skin: Reports: No Symptoms Neurological: Reports: No Symptoms Psychiatric: Reports: No Symptoms Hematologic/Lymphatic: Reports: No Symptoms Immunologic: Reports: No Symptoms ED EXAM, GENERAL - Physical Exam Exam: See Below Exam Limited By: No Limitations General Appearance: Alert, WD/WN, No Apparent Distress Eye Exam: Bilateral Eye: EOMI, PERRL Throat/Mouth: Normal Inspection Head: Atraumatic Respiratory/Chest: No Respiratory Distress. No: Normal Breath Sounds Cardiovascular: Normal Peripheral Pulses, Regular Rate, Rhythm GI/Abdominal: Normal Bowel Sounds Extremities: Normal Inspection Neurological: Alert, Oriented, Normal Cognition, Normal Gait #1 Interpretation EKG Date: 07/25/20 Time: 00:52 Rhythm: Other (sinus tach) Rate (Beats/Min): 104 ST-T: Normal Course - Vital Signs Last Recorded V/S: Last Vital Signs Temp 98.8 F 07/25/20 00:48 Pulse 102 H 07/25/20 00:48 Resp 18 07/25/20 00:48 BP 123/74 07/25/20 00:48 Pulse Ox 90 L 07/25/20 00:48 - Orders/Labs/Meds Orders: Active Orders 24 hr Category Date Time Status EKG Documentation Completion [RC] STAT Care 07/25/20 00:58 Active Labs: Laboratory Tests 07/25/20 07/25/20 Range/Units 00:53 00:53 WBC 7.91 (4.0-11.0) K/uL RBC 4.32 (4.30-5.90) M/uL Hgb 14.7 (12.0-16.0) g/dL Hct 43.7 (36.0-46.0) % MCV 101.2 H (80.0-98.0) fL MCH 34.0 H (27.0-32.0) pg MCHC 33.6 (31.0-37.0) g/dL RDW Std Deviation 44.6 (28.0-62.0) fl RDW Coeff of Drew 12 (11.0-15.0) % Plt Count 171 (150-400) K/uL MPV 10.10 (7.40-12.00) fL Neut % (Auto) 71.1 (48.0-80.0) % Lymph % (Auto) 15.8 L (16.0-40.0) % Dunn % (Auto) 12.9 (0.0-15.0) % Eos % (Auto) 0.1 (0.0-7.0) % Baso % (Auto) 0.1 (0.0-1.5) % Neut # (Auto) 5.6 (1.4-5.7) K/uL Lymph # (Auto) 1.3 (0.6-2.4) K/uL Dunn # (Auto) 1.0 H (0.0-0.8) K/uL Eos # (Auto) 0.0 (0.0-0.7) K/uL Baso # (Auto) 0.0 (0.0-0.1) K/uL Nucleated RBC % 0.0 /100WBC Nucleated RBCs # 0 K/uL Sodium 139 (136-145) mmol/L Potassium 3.7 (3.5-5.1) mmol/L Chloride 100 (98-107) mmol/L Carbon Dioxide 34.3 H (21.0-32.0) mmol/L BUN 14 (7.0-18.0) mg/dL Creatinine 0.7 (0.6-1.0) mg/dL Est Cr Clr Drug Dosing 73.44 mL/min Estimated GFR (MDRD) > 60.0 ml/min Glucose 121 H (74-106) mg/dL Calcium 8.6 (8.5-10.1) mg/dL Phosphorus 3.7 (2.6-4.7) mg/dL Magnesium 1.6 L (1.8-2.4) mg/dL Total Bilirubin 0.3 (0.2-1.0) mg/dL AST 16 (15-37) IU/L ALT 20 (14-63) IU/L Alkaline Phosphatase 79 (46-116) U/L Creatine Kinase 20 L (26-308) U/L Troponin I < 0.050 (0.000-0.056) ng/mL Total Protein 6.5 (6.4-8.2) g/dL Albumin 2.8 L (3.4-5.0) g/dL Globulin 3.7 (2.6-4.0) g/dL Albumin/Globulin Ratio 0.8 L (0.9-1.6) Lipase 84 (73-393) U/L Meds: Medications Discontinued Medications Generic Name Dose Route Start Last Admin Trade Name Freq PRN Reason Stop Dose Admin Albuterol/Ipratropium 3 ml 07/25/20 00:55 07/25/20 01:45 Albuterol/Ipratropium 3.0-0.5 Mg/3 Ml Neb Soln NEB 07/25/20 00:56 Not Given ONETIME ONE Magnesium Sulfate 1 gm in 25 mls @ 50 mls/hr 07/25/20 01:15 07/25/20 01:42 Magnesium Sulfate In Water 2 Gm/50 Ml IV 07/25/20 01:44 50 mls/hr NOW ONE Administration Ibuprofen 800 mg 06/13/21 01:15 07/25/20 01:42 Ibuprofen 800 Mg Tab PO 07/25/20 01:16 Not Given ONETIME ONE Methylprednisolone Sodium Succinate 125 mg 07/25/20 00:55 07/25/20 01:42 Methylprednisolone Sodium Succinate 125 Mg/2 Ml Sdv IVPUSH 07/25/20 00:56 125 mg ONETIME ONE Administration Naproxen 500 mg 07/25/20 01:38 07/25/20 01:41 Naproxen 500 Mg Tab PO 07/25/20 01:39 500 mg ONETIME ONE Administration Naproxen 500 mg 07/25/20 01:40 07/25/20 01:42 Naproxen 500 Mg Tab PO 07/25/20 01:41 500 mg ONETIME ONE Administration Naproxen Confirm 07/25/20 01:40 07/25/20 01:46 Naproxen 500 Mg Tab Administered 07/25/20 01:41 Not Given Dose 1,000 mg [facility] - Re-Assessments/Exams Free Text/Narrative Re-Assessment/Exam: 07/25/20 02:34 Patient was given magnesium steroids and nebs patient looks a lot better states she feels at her baseline but not like to be at hospital be as she had a decision making with the patient and she is electing to stay be discharged home. Departure - Departure Time of Disposition: 02:35 Disposition: Home, Self-Care 01 Condition: Good Clinical Impression: COPD (chronic obstructive pulmonary disease) - Discharge Information *PRESCRIPTION DRUG MONITORING PROGRAM REVIEWED*: Not Applicable *COPY OF PRESCRIPTION DRUG MONITORING REPORT IN PATIENT CUBA: Not Applicable Instructions: Chronic Obstructive Pulmonary Disease, [id number] Referrals: PCP,None [Primary Care Provider] - Forms: ED Department Discharge Additional Instructions: The following information is given to patients seen in the emergency department who are being discharged to home. This information is to outline your options for follow-up care. We provide all patients seen in our emergency department with a follow-up referral. The need for follow-up, as well as the timing and circumstances, are variable depending upon the specifics of your emergency department visit. If you don't have a primary care physician on staff, we will provide you with a referral. We always advise you to contact your personal physician following an emergency department visit to inform them of the circumstance of the visit and for follow-up with them and/or the need for any referrals to a consulting specialist. The emergency department will also refer you to a specialist when appropriate. This referral assures that you have the opportunity for follow-up care with a specialist. All of these measure are taken in an effort to provide you with optimal care, which includes your follow-up. Under all circumstances we always encourage you to contact your private physician who remains a resource for coordinating your care. When calling for follow-up care, please make the office aware that this follow-up is from your recent emergency room visit. If for any reason you are refused follow-up, please contact the [facility] Emergency Department at and asked to speak to the emergency department charge nurse. Please follow up with your primary care physician. If you do not have a primary care physician, see below: [facility] [address] [place] [id number] My [facility] [address] [place] [address] You are seen today for shortness of breath. We gave you magnesium steroids and albuterol which really improve your breathing. We would have admitted you but you feel comfortable enough to go home. We will send you home with a 4-day course of steroids you should take. If your breathing breathing becomes worse you have any other concerning symptoms please return to the ED. Sepsis Event Note (ED) - Evaluation Sepsis Screening Result: No Definite Risk - Focused Exam Vital Signs: Vital Signs Temp Pulse Resp BP Pulse Ox 07/25/20 00:48 98.8 F 102 H 18 123/74 90 L - My Orders Last 24 Hours: My Active Orders 07/25/20 00:58 EKG Documentation Completion [RC] STAT - Assessment/Plan Last 24 Hours: My Active Orders 07/25/20 00:58 EKG Documentation Completion [RC] STAT Plan: Patient is a 60-year-old female who presents today for COPD. Patient is satting above 94% on 4 L. Will obtain x-ray labs and give albuterol steroids magnesium and reassess.
[2020-07-25] MEDS ORDERED: Magnesium Sulfate/Water 1 GM/25 ML BAG IV ONE (01:15)
[2020-07-25] MEDS ORDERED: Ibuprofen 800 MG Tab PO ONE (01:15)
[2020-07-25 01:18] LABS: BLOOD UREA NITROGEN,BUN 14 mg/dL (7.0-18.0); CARBON DIOXIDE,CO2 34.3 mmol/L (21.0-32.0); CHLORIDE,CL 100 mmol/L (98-107); GLUCOSE RANDOM 121 mg/dL (74-106); LIPASE 84 U/L (73-393); POTASSIUM,K 3.7 mmol/L (3.5-5.1); SODIUM,NA 139 mmol/L (136-145)
[2020-07-25] MEDS ORDERED: Naproxen 500 MG Tab PO ONE ×2 (01:38→01:40)
[2020-07-25] MEDS ORDERED: Naproxen 500 MG Tab ONE (01:40)
--- NOTE | 2020-07-25 02:16 | CR ---
Indication: SOB. COPD Technique: Chest 1 view Comparison: 04/11/2019 Findings/Impression: Cardiovascular and mediastinum: Heart size and vasculature are normal in caliber and appearance. Mediastinum is within normal limits. Lungs and pleural space: Borderline hyperinflation. Foci of interstitial scarring. Mild left perihilar subsegmental atelectasis or scarring. Minor focal subsegmental atelectasis or scarring in the right costophrenic angle. No lobar consolidation or gross pleural effusions. No pneumothorax seen. Bones and soft tissues: No significant change. Dictated by Mack Mckeon MD @ 07/25/2020 2:14:[address] Mack Mckeon @ Jul 25 2020 2:14AM
[2020-07-25 02:52] VITALS: BP 118/64; PULSE 98
== END 2020-07-25 02:47 | disposition home or self-care (01) ==
LOC: MW.ED 00:41
DX: J44.9 Chronic obstructive pulmonary disease, unspecified (principal); R56.9 Unspecified convulsions; Z79.899 Other long term (current) drug therapy; Z88.2 Allergy status to sulfonamides
CPT/HCPCS: 36415; 71045; 80053; 82550; 83690; 83735; 84100; 84484; 85025; 93005; 96365; 96375; 99285; A9270; J2930; J3475; 93010; 99283

== ENCOUNTER 2020-08-26 08:18 | Day surgery (SDC) | payer BC ==
[~2020-08-26 08:18] MED LIST: Lactated Ringers 1,000 ML IV SCH; Lidocaine 2% 5 ML SDV ONE; Ondansetron 4 MG/2 ML SDV ONE; Sodium Chloride 0.9% 10 ML SDV IV PRN; Sodium Chloride 0.9% 10 ML Syringe FLUSH PRN; Sodium Chloride 0.9% 2.5 ML Syringe FLUSH PRN; fentaNYL 100 MCG/2 ML SDV ONE; propofoL 50 ML ONE
[2020-08-26] MEDS ORDERED: Midazolam 1 MG/ML 2 ML SDV ONE (09:21)
--- NOTE | 2020-08-26 09:24 | PCM.PREANE ---
Preanesthetic Assessment - Anesthesia/Transfusion/Family Hx Anesthesia History: Prior Anesthesia Without Reaction Family History of Anesthesia Reaction: No Transfusion History: No Prior Transfusion(s) Intubation History: Unknown - Review of Systems General: Weakness, Fatigue Pulmonary: Shortness of Breath, Wheezing, Cough Cardiovascular: Dyspnea on Exertion Gastrointestinal: No Symptoms Neurological: No Symptoms Other: Reports: None - Physical Assessment NPO Status Date: 08/26/20 NPO Status Time: 00:00 Vital Signs: Last Vital Signs Temp 97.3 F 08/26/20 08:35 Pulse 92 08/26/20 08:35 Resp 16 08/26/20 08:35 BP 128/75 08/26/20 08:35 Pulse Ox 86 L 08/26/20 08:35 Height: 5 ft 5 in Weight: 129 lb ASA Class: 3 Mental Status: Alert & Oriented x3 Airway Class: Mallampati = 2 Dentition: Reports: Normal Dentition, Broken Tooth/Teeth, Missing Tooth/Teeth ROM/Head Extension: Full Lungs: Decreased Breath Sounds, Wheezing Cardiovascular: Regular Rate, Regular Rhythm - Allergies Allergies/Adverse Reactions: Allergies Allergy/AdvReac Type Severity Reaction Status Date / Time Sulfa (Sulfonamide Allergy Cannot Verified 08/23/20 11:24 Antibiotics) Remember - Anesthesia Plan Beta Corrine: Other Med Last Dose Date: 08/26/20 - Acknowledgements Anesthesia Type Planned: General Anesthesia Pt an Appropriate Candidate for the Planned Anesthesia: Yes Alternatives and Risks of Anesthesia Discussed w Pt/Guardian: Yes Pt/Guardian Understands and Agrees with Anesthesia Plan: Yes PreAnesthesia Questionnaire HEENT History: Reports: None Other HEENT History: wears glasses Cardiovascular History: Reports: None Respiratory History: Reports: COPD Other Respiratory History: uses oxygen at night- 2 liters Gastrointestinal History: Reports: None Genitourinary History: Reports: None [employer] History: Reports: Musculoskeletal History: Reports: Fracture Other Musculoskeletal History: ribs Neurological History: Reports: Seizure Other Neuro History: 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 Psychiatric History: Reports: None Other Psychiatric History: claustrophobic Endocrine/Metabolic History: Reports: None Other Endocrine/Metabolic History: is tapering off her medication- currently taking 3 days per week Hematologic History: Reports: None Immunologic History: Reports: None Oncologic (Cancer) History: Reports: None Dermatologic History: Reports: None - Infectious Disease History Infectious Disease History: Reports: Chicken Pox Other Infectious Disease History: childhood - Past Surgical History Head Surgeries/Procedures: Reports: None HEENT Surgical History: Reports: None Cardiovascular Surgical History: Reports: None Respiratory Surgical History: Reports: None GI Surgical History: Reports: None Female Surgical History: Reports: None Endocrine Surgical History: Reports: None Neurological Surgical History: Reports: None Musculoskeletal Surgical History: Reports: None Other Musculoskeletal Surgeries/Procedures:: right knee as a child- no hardware Oncologic Surgical History: Reports: None Dermatological Surgical History: Reports: None - SUBSTANCE USE Tobacco Use Status *Q: Current Every Day Tobacco User Tobacco Use Within Last Twelve Months: Cigarettes Recreational Drug Use History: No - HOME MEDS Home Medications: Home Meds Divalproex Sodium [Depakote] 500 mg PO TID 04/01/18 [History] Levothyroxine Sodium [Levoxyl] 75 mcg PO ACBREAKFAST 04/01/18 [History] Multivitamins [Tab-A-Macho] 1 tab PO DAILY 04/01/18 [History] Umeclidinium Brm/Vilanterol Tr [Anoro Ellipta 62.5-25 MCG] 1 puff INH DAILY #1 inhaler 04/07/18 [Rx] Ascorbic Acid [Vitamin C] 1,000 tab PO DAILY 02/11/19 [History] Calcium Carb/Vitamin D3/Vit K1 [Calcium + D Soft Chewable Tab] 1,000 tab PO BID 02/11/19 [History] Fluticasone Furoate [Arnuity Ellipta] 1 puff IH DAILY 04/12/19 [History] Albuterol Sulfate [Proair Hfa] 1 - 2 puff INH Q4H PRN 08/23/20 [History] Ipratropium/Albuterol Sulfate [Iprat-Albut 0.5-3(2.5) MG/3 ML] 1 dose NEB QID PRN 08/23/20 [History] - CURRENT (IN HOUSE) MEDS Current Meds: Current Medications Lactated Ringer's (Ringers, Lactated) 1,000 mls @ 125 mls/hr IV ASDIRECTED RADHA Last Admin: 08/26/20 08:37 Dose: 125 mls/hr Documented by: Sodium Chloride (Sodium Chloride 0.9% 10 Ml Syringe) 10 ml FLUSH ASDIRECTED PRN PRN Reason: Keep Vein Open Sodium Chloride (Sodium Chloride 0.9% 2.5 Ml Syringe) 2.5 ml FLUSH ASDIRECTED PRN PRN Reason: Keep Vein Open Sodium Chloride (Sodium Chloride 0.9% 10 Ml Syringe) 10 ml FLUSH ASDIRECTED PRN PRN Reason: Keep Vein Open Sodium Chloride (Sodium Chloride 0.9% 2.5 Ml Syringe) 2.5 ml FLUSH ASDIRECTED PRN PRN Reason: Keep Vein Open Sodium Chloride (Sodium Chloride 0.9% 10 Ml Sdv) 10 ml IV ASDIRECTED PRN PRN Reason: IV Use Discontinued Medications Fentanyl (Fentanyl 100 Mcg/2 Ml Sdv) Confirm Administered Dose 100 mcg .ROUTE .[facility]-MED ONE Stop: 08/26/20 07:35 Propofol (Diprivan 50 Ml) Confirm Administered Dose 50 mls @ as directed .ROUTE .ST[facility]-MED ONE Stop: 08/26/20 07:03 Lidocaine (Lidocaine 2% 5 Ml Sdv) Confirm Administered Dose 5 ml .ROUTE .ST[facility]-MED ONE Stop: 08/26/20 07:00 Ondansetron HCl (Ondansetron 4 Mg/2 Ml Sdv) Confirm Administered Dose 4 mg .ROUTE .STK-MED ONE Stop: 08/26/20 07:00
--- NOTE | 2020-08-26 10:30 | PCM.POSTAN ---
POST ANESTHESIA ASSESSMENT - MENTAL STATUS Mental Status: Alert, Oriented - VITAL SIGNS Vital Signs: Last Vital Signs Temp 97.3 F 08/26/20 08:35 Pulse 92 08/26/20 08:35 Resp 16 08/26/20 08:35 BP 128/75 08/26/20 08:35 Pulse Ox 86 L 08/26/20 08:35 - RESPIRATORY Respiratory Status: Respiratory Rate WNL, Airway Patent, O2 Saturation Stable - CARDIOVASCULAR CV Status: Pulse Rate WNL, Blood Pressure Stable - GASTROINTESTINAL GI Status: No Symptoms - POST OP HYDRATION Hydration Status: Adequate & Stable
--- NOTE | 2020-08-26 10:31 | PCM48HPAN ---
Post Anesthesia Note - EVALUATION WITHIN 48HRS OF ANESTHETIC Vital Signs in Normal Range: Yes Patient Participated in Evaluation: Yes Respiratory Function Stable: Yes Airway Patent: Yes Cardiovascular Function Stable: Yes Hydration Status Stable: Yes Pain Control Satisfactory: Yes Nausea and Vomiting Control Satisfactory: Yes Mental Status Recovered: Yes Vital Signs: Last Vital Signs Temp 97.3 F 08/26/20 08:35 Pulse 92 08/26/20 08:35 Resp 16 08/26/20 08:35 BP 128/75 08/26/20 08:35 Pulse Ox 86 L 08/26/20 08:35
--- NOTE | 2020-08-26 10:38 | PCM.OPNOTE ---
- General Post-Op/Procedure Note Date of Surgery/Procedure: 08/26/20 Operative Procedure(s): Screening colonoscopy Findings: cecal polyp, transverse colon polyp, sigmoid colon polyp x 5, diverticulosis Pre Op Diagnosis: History of polyps Post-Op Diagnosis: cecal polyp, transverse colon polyp, diverticulosis, sigmoid colon polyps x 5 Anesthesia Technique: [facility] Primary Surgeon: Maddi Wing Condition: Good
[2020-08-26 11:15] VITALS: BP 114/63; PULSE 86
--- NOTE | 2020-08-27 12:58 | OR ---
SURGEON: MADDI WING MD DATE OF PROCEDURE: 08/26/2020 PREOPERATIVE DIAGNOSIS: History of colon polyps. POSTOPERATIVE DIAGNOSES: 1. Cecal polyp x1. 2. Transverse colon polyp x1. 3. Sigmoid colon polyp x5. 4. Diverticulosis. PROCEDURE PERFORMED: Screening colonoscopy with polypectomy. PRIMARY SURGEON: Maddi Wing MD ANESTHESIA: MAC. INSTRUMENT USED: Olympus colonoscope. EXTENT OF EXAM: To the cecum. PREPARATION: Good. LIMITATIONS: None. INDICATIONS FOR EXAMINATION: The patient is a 60-year-old female with severe COPD who presented for repeat colonoscopy. She has a history of colon polyps. I explained the need for a repeat colonoscopy. We went through the procedure, expected perioperative course, and the risks. She verbalized understanding and wishes to proceed. PROCEDURE IN DETAIL: The patient was brought in to the endoscopy suite and placed in a left lateral decubitus position. A time-out was completed verifying the patient's name, age, date of , allergies, and procedure to be performed. Monitored anesthesia care was induced and continuous oxygen was provided via nasal cannula throughout the procedure. After adequate sedation was achieved, a digital rectal exam was performed. This exam was within normal limits. A well-lubricated colonoscope was inserted in the rectum and advanced under direct visualization to the level of the cecum. The cecum was identified by both visual and anatomic landmarks. A photograph was taken of the cecal cap; however, I was unable to retroflex the scope within the cecum due to looping of the scope more proximally. The scope was fully withdrawn while examining the color, texture, anatomy, and integrity of the mucosa from the cecum to the anal canal. The patient was noted to have a small sessile polyp within the cecum, transverse colon, as well as five small sessile polyps within the distal sigmoid colon. These were all removed in piecemeal fashion using a cold biopsy forceps. She was also found to have diverticulosis within the sigmoid colon. The scope was then brought into the rectum and retroflexed to allow visualization of the anal canal opening. This appeared normal and a photograph was taken. The scope was then straightened out and fully withdrawn. The cecum to anus time was 15 minutes. The patient tolerated the procedure well and was transferred to the PACU in stable condition. ENDOSCOPIC DIAGNOSES: 1. Cecal polyp x1. 2. Transverse colon polyp x1. 3. Sigmoid colon polyp x5. 4. Diverticulosis. RECOMMENDATION: Follow up in clinic in two weeks. EILEEN SMITH /[id number]
== END 2020-08-26 11:13 | disposition home or self-care (01) ==
LOC: MW.SDS 08:18
PROVIDERS: ATTEND Surgery
DX: Z12.11 Encounter for screening for malignant neoplasm of colon (principal); D12.0 Benign neoplasm of cecum; D12.3 Benign neoplasm of transverse colon; K57.30 Diverticulosis of large intestine without perforation or abscess without bleeding; J44.9 Chronic obstructive pulmonary disease, unspecified; E03.9 Hypothyroidism, unspecified; Z87.891 Personal history of nicotine dependence; Z88.2 Allergy status to sulfonamides; Z79.899 Other long term (current) drug therapy; Z90.49 Acquired absence of other specified parts of digestive tract; Z98.890 Other specified postprocedural states
CPT/HCPCS: 45380; 88305; J2250; J2405; J2704; J3010; J7120; 00812

== ENCOUNTER 2020-11-13 08:44 | Emergency (ER) | payer BC ==
--- NOTE | 2020-11-13 08:46 | EDM.PDOC ---
ED HPI GENERAL MEDICAL PROBLEM - General Stated Complaint: TESTED POSITIVE AT HOME COVID TEST Time Seen by Provider: 11/13/20 08:45 Source of Information: Reports: Patient History Limitations: Reports: No Limitations - History of Present Illness INITIAL COMMENTS - FREE TEXT/NARRATIVE: 60-year-old female past medical history COPD on home O2 as needed and at night presents for positive home Covid test. Patient was taking at home Covid test to accompany her grandson to an event. She does not have any symptoms of Covid. She notes a chronic cough unchanged from baseline. She denies any loss of taste or smell, fevers, shortness of breath, chest pain. She notes that her oxygen saturation today of 87% is consistent with her baseline. She is unvaccinated and declines any additional information regarding vaccination. - Related Data Allergies Allergy/AdvReac Type Severity Reaction Status Date / Time Sulfa (Sulfonamide Allergy Cannot Verified 08/23/20 11:24 Antibiotics) Remember Home Meds: Home Meds Divalproex Sodium [Depakote] 500 mg PO TID 04/01/18 [History] Levothyroxine Sodium [Levoxyl] 75 mcg PO ACBREAKFAST 04/01/18 [History] Multivitamins [Tab-A-Macho] 1 tab PO DAILY 04/01/18 [History] Umeclidinium Brm/Vilanterol Tr [Anoro Ellipta 62.5-25 MCG] 1 puff INH DAILY #1 inhaler 04/07/18 [Rx] Ascorbic Acid [Vitamin C] 1,000 tab PO DAILY 02/11/19 [History] Calcium Carb/Vitamin D3/Vit K1 [Calcium + D Soft Chewable Tab] 1,000 tab PO BID 02/11/19 [History] Fluticasone Furoate [Arnuity Ellipta] 1 puff IH DAILY 04/12/19 [History] Albuterol Sulfate [Proair Hfa] 1 - 2 puff INH Q4H PRN 08/23/20 [History] Ipratropium/Albuterol Sulfate [Iprat-Albut 0.5-3(2.5) MG/3 ML] 1 dose NEB QID PRN 08/23/20 [History] Past Medical History HEENT History: Reports: None Other HEENT History: wears glasses Cardiovascular History: Reports: None Respiratory History: Reports: COPD Other Respiratory History: uses oxygen at night- 2 liters Gastrointestinal History: Reports: None Genitourinary History: Reports: None THERAPEUTIC STRATEGY LEAD History: Reports: Musculoskeletal History: Reports: Fracture Other Musculoskeletal History: ribs Neurological History: Reports: Seizure Other Neuro History: 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 Psychiatric History: Reports: None Other Psychiatric History: claustrophobic Endocrine/Metabolic History: Reports: None Other Endocrine/Metabolic History: is tapering off her medication- currently taking 3 days per week Hematologic History: Reports: None Immunologic History: Reports: None Oncologic (Cancer) History: Reports: None Dermatologic History: Reports: None - Infectious Disease History Infectious Disease History: Reports: Chicken Pox Other Infectious Disease History: childhood - Past Surgical History Other Musculoskeletal Surgeries/Procedures:: right knee as a child- no hardware Social & Family History - Family History Family Medical History: No Pertinent Family History - Caffeine Use Caffeine Use: Reports: Soda ED ROS GENERAL - Review of Systems Review Of Systems: Comprehensive ROS is negative, except as noted in HPI. ED EXAM, GENERAL - Physical Exam Exam: See Below Exam Limited By: No Limitations General Appearance: Alert, WD/WN, No Apparent Distress Ears: Hearing Grossly Normal Throat/Mouth: Normal Voice, No Airway Compromise Head: Atraumatic, Normocephalic Neck: Normal Inspection Respiratory/Chest: No Respiratory Distress, Lungs Clear, Normal Breath Sounds, No Accessory Muscle Use Cardiovascular: Normal Peripheral Pulses, Regular Rate, Rhythm Extremities: Normal Inspection Neurological: Alert, Normal Cognition, Normal Gait Psychiatric: Normal Affect, Normal Mood Skin Exam: Warm, Dry, Intact, Normal Color Course - Vital Signs Last Recorded V/S: Last Vital Signs Temp 96.4 F L 11/13/20 09:01 Pulse 88 11/13/20 09:01 Resp 20 11/13/20 09:01 BP 129/69 11/13/20 09:01 Pulse Ox 87 L 11/13/20 09:01 - Orders/Labs/Meds Orders: Active Orders 24 hr Category Date Time Status Chest 1V Frontal [CR] Stat Exams 11/13/20 08:55 Stop Req COVID-19/FLU A+B [MOLEC] Stat Lab 11/13/20 08:53 Results Labs: Laboratory Tests 11/13/20 Range/Units 08:53 SARS-CoV-2 RNA (CRISTOFER) POSITIVE H (NEGATIVE) - Re-Assessments/Exams Free Text/Narrative Re-Assessment/Exam: 11/13/20 09:12 Patient request Covid testing. She declines chest x-ray or any other labs. Will get a Covid test and reassess. 11/13/20 10:00 Covid test is positive. Will discharge with outpatient antibiotic infusion. Departure - Departure Time of Disposition: 10:00 Disposition: Home, Self-Care 01 Condition: Good Clinical Impression: COVID-19 - Discharge Information Instructions: COVID-19 Vaccine Information, COVID-19: What to Do If You Are Sick- [facility] (04/28/2020) Additional Instructions: If you develop difficulty breathing or chest pain please come back to the emergency department for reassessment. The following information is given to patients seen in the emergency department who are being discharged to home. This information is to outline your options for follow-up care. We provide all patients seen in our emergency department with a follow-up referral. The need for follow-up, as well as the timing and circumstances, are variable depending upon the specifics of your emergency department visit. If you don't have a primary care physician on staff, we will provide you with a referral. We always advise you to contact your personal physician following an emergency department visit to inform them of the circumstance of the visit and for follow-up with them and/or the need for any referrals to a consulting specialist. The emergency department will also refer you to a specialist when appropriate. This referral assures that you have the opportunity for follow-up care with a specialist. All of these measure are taken in an effort to provide you with optimal care, which includes your follow-up. Under all circumstances we always encourage you to contact your private physician who remains a resource for coordinating your care. When calling for follow-up care, please make the office aware that this follow-up is from your recent emergency room visit. If for any reason you are refused follow-up, please contact the [facility] Emergency Department at and asked to speak to the emergency department charge nurse. Please follow up with your primary care physician. If you do not have a primary care physician, see below: [facility] [address] [place] [id number] [facility] [address] [place], [place] [id number] [facility] [address] [place] [address] Sepsis Event Note (ED) - Focused Exam Vital Signs: Vital Signs Temp Pulse Resp BP Pulse Ox 11/13/20 09:01 96.4 F L 88 20 129/69 87 L - My Orders Last 24 Hours: My Active Orders 11/13/20 08:53 COVID-19/FLU A+B [MOLEC] Stat 11/13/20 08:55 Chest 1V Frontal [CR] Stat - Assessment/Plan Last 24 Hours: My Active Orders 11/13/20 08:53 COVID-19/FLU A+B [MOLEC] Stat 11/13/20 08:55 Chest 1V Frontal [CR] Stat
[2020-11-13 09:29] LABS: CORONAVIRUS COVID-19 NAA POSITIVE (NEGATIVE)
[2020-11-13 10:09] LABS: INFLUENZA A NAA NEGATIVE (NEGATIVE); INFLUENZA B NAA NEGATIVE (NEGATIVE)
[2020-11-13 11:05] VITALS: BP 123/81; PULSE 84
== END 2020-11-13 10:30 | disposition home or self-care (01) ==
LOC: MW.ED 08:44
DX: U07.1 COVID-19 (principal); J44.9 Chronic obstructive pulmonary disease, unspecified; Z88.2 Allergy status to sulfonamides; Z79.899 Other long term (current) drug therapy
CPT/HCPCS: 0240U; 99284

== ENCOUNTER 2021-03-01 02:49 | Inpatient (IN) | payer BC ==
[2021-03-01] MEDS ORDERED: Albuterol/Ipratropium 3.0-0.5 MG/3 ML Neb Soln NEB ONE (03:06)
[2021-03-01] MEDS ORDERED: Sodium Chloride 0.9% 2.5 ML Syringe FLUSH PRN ×2 (03:06→08:00)
[2021-03-01] MEDS ORDERED: cefTRIAXone 1 GM in Sodium Chloride 0.9% 50 ML IV STA (03:06)
[2021-03-01] MEDS ORDERED: Sodium Chloride 0.9% 10 ML Syringe FLUSH PRN (03:06)
[2021-03-01] MEDS ORDERED: methylPREDNISolone Sodium Succinate 125 MG/2 ML SDV IVPUSH ONE (03:08)
[2021-03-01 04:00] LABS: BLOOD UREA NITROGEN,BUN 25 mg/dL (7.0-18.0); CARBON DIOXIDE,CO2 33.2 mmol/L (21.0-32.0); CHLORIDE,CL 97 mmol/L (98-107); GLUCOSE RANDOM 104 mg/dL (74-106); POTASSIUM,K 3.5 mmol/L (3.5-5.1); SODIUM,NA 139 mmol/L (136-145)
[2021-03-01] MEDS ORDERED: Acetaminophen 325 MG Tab PO PRN (08:00)
[2021-03-01] MEDS ORDERED: Ondansetron 4 MG/2 ML SDV IVPUSH PRN (08:00)
[2021-03-01] MEDS ORDERED: Albuterol/Ipratropium 3.0-0.5 MG/3 ML Neb Soln NEB PRN (08:00)
[2021-03-01] MEDS ORDERED: Levofloxacin/Dextrose 5%-Water 750 MG in Premix Bag 1 BAG IV SCH (08:15)
[2021-03-01] MEDS: Multivitamin Tab PO SCH (09:19)
[2021-03-01] MEDS: Calcium Carbonate/Vitamin D3 1500 MG-400 Units Tab PO SCH (09:19)
[2021-03-01] MEDS: Ascorbic Acid 500 MG Tab PO SCH (09:19)
[2021-03-01] MEDS: VILANTEROL TR INH SCH (09:45)
[2021-03-01] MEDS: FLUTICASONE FUROATE 200 MCG INH SCH (09:45)
[2021-03-01] MEDS: UMECLIDINIUM BRM INH SCH (09:45)
[2021-03-01] MEDS: Divalproex Sodium Delayed-Release 500 MG Tab.CR PO SCH ×3 (10:29→21:13)
[2021-03-01] MEDS: Albuterol/Ipratropium 3.0-0.5 MG/3 ML Neb Soln NEB SCH ×4 (10:29→21:13)
[2021-03-01] MEDS: methylPREDNISolone Sodium Succinate 125 MG/2 ML SDV IVPUSH SCH ×2 (11:25→18:29)
[2021-03-01] MEDS ORDERED: Divalproex Sodium Delayed-Release 500 MG Tab.CR PO SCH (14:00)
[2021-03-01] MEDS: Enoxaparin 40 MG/0.4 ML Syringe SUBCUT SCH (14:47)
[2021-03-01] MEDS: Benzonatate 100 MG Cap PO PRN (18:44)
[2021-03-01] MEDS: Codeine/guaiFENesin 10-100 MG/5 ML Syrup 5 ML Cup PO PRN (22:57)
[2021-03-02] MEDS: Benzonatate 100 MG Cap PO PRN (02:46)
[2021-03-02] MEDS: Albuterol/Ipratropium 3.0-0.5 MG/3 ML Neb Soln NEB SCH ×6 (02:47→21:15)
[2021-03-02] MEDS: methylPREDNISolone Sodium Succinate 125 MG/2 ML SDV IVPUSH SCH ×3 (02:49→18:23)
[2021-03-02] MEDS: Codeine/guaiFENesin 10-100 MG/5 ML Syrup 5 ML Cup PO PRN ×4 (05:24→22:33)
[2021-03-02] MEDS: Divalproex Sodium Delayed-Release 500 MG Tab.CR PO SCH ×3 (05:24→21:15)
[2021-03-02 06:34] LABS: BLOOD UREA NITROGEN,BUN 19 mg/dL (7.0-18.0); CARBON DIOXIDE,CO2 33.6 mmol/L (21.0-32.0); CHLORIDE,CL 99 mmol/L (98-107); GLUCOSE RANDOM 177 mg/dL (74-106); POTASSIUM,K 3.8 mmol/L (3.5-5.1); SODIUM,NA 136 mmol/L (136-145)
[2021-03-02] MEDS: Calcium Carbonate/Vitamin D3 1500 MG-400 Units Tab PO SCH (09:07)
[2021-03-02] MEDS: VILANTEROL TR INH SCH (09:08)
[2021-03-02] MEDS: UMECLIDINIUM BRM INH SCH (09:08)
[2021-03-02] MEDS: Multivitamin Tab PO SCH (09:08)
[2021-03-02] MEDS: Doxycycline 100 MG Cap PO SCH ×2 (09:08→21:15)
[2021-03-02] MEDS: Ascorbic Acid 500 MG Tab PO SCH (09:08)
[2021-03-02] MEDS: FLUTICASONE FUROATE 200 MCG INH SCH (09:09)
[2021-03-02] MEDS: cefTRIAXone 1 GM in Sodium Chloride 0.9% 50 ML IV SCH (09:10)
[2021-03-02] MEDS ORDERED: Benzonatate 100 MG Cap PO PRN (10:00)
[2021-03-02] MEDS: Enoxaparin 40 MG/0.4 ML Syringe SUBCUT SCH (14:02)
[2021-03-03] MEDS: Albuterol/Ipratropium 3.0-0.5 MG/3 ML Neb Soln NEB SCH ×6 (02:00→22:00)
[2021-03-03] MEDS: Divalproex Sodium Delayed-Release 500 MG Tab.CR PO SCH ×3 (05:30→22:10)
[2021-03-03] MEDS: methylPREDNISolone Sodium Succinate 125 MG/2 ML SDV IVPUSH SCH ×3 (05:31→18:26)
[2021-03-03] MEDS: Codeine/guaiFENesin 10-100 MG/5 ML Syrup 5 ML Cup PO PRN ×2 (05:31→18:26)
[2021-03-03 08:13] LABS: BLOOD UREA NITROGEN,BUN 19 mg/dL (7.0-18.0); CARBON DIOXIDE,CO2 38.3 mmol/L (21.0-32.0); CHLORIDE,CL 99 mmol/L (98-107); GLUCOSE RANDOM 153 mg/dL (74-106); POTASSIUM,K 4.3 mmol/L (3.5-5.1); SODIUM,NA 136 mmol/L (136-145)
[2021-03-03] MEDS: Calcium Carbonate/Vitamin D3 1500 MG-400 Units Tab PO SCH (09:28)
[2021-03-03] MEDS: Ascorbic Acid 500 MG Tab PO SCH (09:28)
[2021-03-03] MEDS: Multivitamin Tab PO SCH (09:29)
[2021-03-03] MEDS: Doxycycline 100 MG Cap PO SCH ×2 (09:29→20:55)
[2021-03-03] MEDS: cefTRIAXone 1 GM in Sodium Chloride 0.9% 50 ML IV SCH (09:29)
[2021-03-03] MEDS: FLUTICASONE FUROATE 200 MCG INH SCH (09:30)
[2021-03-03] MEDS: VILANTEROL TR INH SCH (09:30)
[2021-03-03] MEDS: UMECLIDINIUM BRM INH SCH (09:30)
[2021-03-03] MEDS ORDERED: Naproxen 500 MG Tab PO PRN (10:30)
[2021-03-03] MEDS: Enoxaparin 40 MG/0.4 ML Syringe SUBCUT SCH (13:43)
[2021-03-04] MEDS: Albuterol/Ipratropium 3.0-0.5 MG/3 ML Neb Soln NEB SCH ×6 (02:00→21:36)
[2021-03-04] MEDS: methylPREDNISolone Sodium Succinate 125 MG/2 ML SDV IVPUSH SCH ×3 (03:53→19:18)
[2021-03-04] MEDS: Divalproex Sodium Delayed-Release 500 MG Tab.CR PO SCH ×3 (06:10→21:34)
[2021-03-04 06:52] LABS: BLOOD UREA NITROGEN,BUN 22 mg/dL (7.0-18.0); CARBON DIOXIDE,CO2 38.8 mmol/L (21.0-32.0); CHLORIDE,CL 97 mmol/L (98-107); GLUCOSE RANDOM 144 mg/dL (74-106); POTASSIUM,K 4.3 mmol/L (3.5-5.1); SODIUM,NA 136 mmol/L (136-145)
[2021-03-04] MEDS: cefTRIAXone 1 GM in Sodium Chloride 0.9% 50 ML IV SCH (08:42)
[2021-03-04] MEDS: Ascorbic Acid 500 MG Tab PO SCH (09:30)
[2021-03-04] MEDS: Doxycycline 100 MG Cap PO SCH ×2 (09:31→21:34)
[2021-03-04] MEDS: Multivitamin Tab PO SCH (09:32)
[2021-03-04] MEDS: Calcium Carbonate/Vitamin D3 1500 MG-400 Units Tab PO SCH (09:32)
[2021-03-04] MEDS: FLUTICASONE FUROATE 200 MCG INH SCH (09:39)
[2021-03-04] MEDS: VILANTEROL TR INH SCH (09:40)
[2021-03-04] MEDS: UMECLIDINIUM BRM INH SCH (09:40)
[2021-03-04] MEDS: Codeine/guaiFENesin 10-100 MG/5 ML Syrup 5 ML Cup PO PRN (11:15)
[2021-03-04] MEDS ORDERED: LORazepam 2 MG/ML SDV IVPUSH ONE (11:16)
[2021-03-04] MEDS ORDERED: Iopamidol 755 MG/ML 500 ML Multipack Bottle IVPUSH ONE (15:13)
[2021-03-04] MEDS: Enoxaparin 40 MG/0.4 ML Syringe SUBCUT SCH (15:28)
[2021-03-05] MEDS: Codeine/guaiFENesin 10-100 MG/5 ML Syrup 5 ML Cup PO PRN ×2 (02:42→21:23)
[2021-03-05] MEDS: methylPREDNISolone Sodium Succinate 125 MG/2 ML SDV IVPUSH SCH ×3 (02:43→18:32)
[2021-03-05] MEDS: Albuterol/Ipratropium 3.0-0.5 MG/3 ML Neb Soln NEB SCH ×6 (02:43→21:23)
[2021-03-05] MEDS: Divalproex Sodium Delayed-Release 500 MG Tab.CR PO SCH ×3 (06:10→21:11)
[2021-03-05 07:52] LABS: BLOOD UREA NITROGEN,BUN 29 mg/dL (7.0-18.0); CARBON DIOXIDE,CO2 42.2 mmol/L (21.0-32.0); CHLORIDE,CL 97 mmol/L (98-107); GLUCOSE RANDOM 149 mg/dL (74-106); POTASSIUM,K 4.3 mmol/L (3.5-5.1); SODIUM,NA 140 mmol/L (136-145)
[2021-03-05] MEDS: cefTRIAXone 1 GM in Sodium Chloride 0.9% 50 ML IV SCH (08:57)
[2021-03-05] MEDS: Calcium Carbonate/Vitamin D3 1500 MG-400 Units Tab PO SCH (08:59)
[2021-03-05] MEDS: Ascorbic Acid 500 MG Tab PO SCH (08:59)
[2021-03-05] MEDS: Multivitamin Tab PO SCH (09:00)
[2021-03-05] MEDS: Doxycycline 100 MG Cap PO SCH ×2 (09:00→21:10)
[2021-03-05] MEDS: UMECLIDINIUM BRM INH SCH (10:34)
[2021-03-05] MEDS: VILANTEROL TR INH SCH (10:34)
[2021-03-05] MEDS: FLUTICASONE FUROATE 200 MCG INH SCH (10:34)
[2021-03-05] MEDS: Enoxaparin 40 MG/0.4 ML Syringe SUBCUT SCH (13:57)
[2021-03-06] MEDS: Albuterol/Ipratropium 3.0-0.5 MG/3 ML Neb Soln NEB SCH ×6 (01:41→21:17)
[2021-03-06] MEDS: methylPREDNISolone Sodium Succinate 125 MG/2 ML SDV IVPUSH SCH ×3 (03:38→18:39)
[2021-03-06] MEDS: Divalproex Sodium Delayed-Release 500 MG Tab.CR PO SCH ×3 (06:41→21:17)
[2021-03-06] MEDS: Doxycycline 100 MG Cap PO SCH ×2 (08:42→21:17)
[2021-03-06] MEDS: Multivitamin Tab PO SCH (08:42)
[2021-03-06] MEDS: Ascorbic Acid 500 MG Tab PO SCH (08:42)
[2021-03-06] MEDS: Calcium Carbonate/Vitamin D3 1500 MG-400 Units Tab PO SCH (08:43)
[2021-03-06] MEDS: cefTRIAXone 1 GM in Sodium Chloride 0.9% 50 ML IV SCH (08:44)
[2021-03-06] MEDS: FLUTICASONE FUROATE 200 MCG INH SCH (09:37)
[2021-03-06] MEDS: VILANTEROL TR INH SCH (09:37)
[2021-03-06] MEDS: UMECLIDINIUM BRM INH SCH (09:37)
[2021-03-06] MEDS: Enoxaparin 40 MG/0.4 ML Syringe SUBCUT SCH (13:12)
[2021-03-06 14:56] LABS: BLOOD UREA NITROGEN,BUN 29 mg/dL (7.0-18.0); CHLORIDE,CL 97 mmol/L (98-107); GLUCOSE RANDOM 161 mg/dL (74-106); POTASSIUM,K 4.5 mmol/L (3.5-5.1); SODIUM,NA 140 mmol/L (136-145)
[2021-03-06 15:19] LABS: CARBON DIOXIDE,CO2 46.9 mmol/L (21.0-32.0)
[2021-03-07] MEDS: Codeine/guaiFENesin 10-100 MG/5 ML Syrup 5 ML Cup PO PRN ×5 (01:28→22:03)
[2021-03-07] MEDS: Albuterol/Ipratropium 3.0-0.5 MG/3 ML Neb Soln NEB SCH ×7 (02:00→22:00)
[2021-03-07] MEDS: Divalproex Sodium Delayed-Release 500 MG Tab.CR PO SCH ×3 (05:49→22:03)
[2021-03-07] MEDS: methylPREDNISolone Sodium Succinate 125 MG/2 ML SDV IVPUSH SCH ×3 (05:50→18:41)
[2021-03-07 06:46] LABS: BLOOD UREA NITROGEN,BUN 29 mg/dL (7.0-18.0); CHLORIDE,CL 98 mmol/L (98-107); GLUCOSE RANDOM 145 mg/dL (74-106); SODIUM,NA 141 mmol/L (136-145)
[2021-03-07 07:51] LABS: CARBON DIOXIDE,CO2 46.1 mmol/L (21.0-32.0)
[2021-03-07] MEDS: cefTRIAXone 1 GM in Sodium Chloride 0.9% 50 ML IV SCH (09:33)
[2021-03-07] MEDS: Doxycycline 100 MG Cap PO SCH ×2 (09:34→22:03)
[2021-03-07] MEDS: Calcium Carbonate/Vitamin D3 1500 MG-400 Units Tab PO SCH (09:34)
[2021-03-07] MEDS: Ascorbic Acid 500 MG Tab PO SCH (09:34)
[2021-03-07] MEDS: Multivitamin Tab PO SCH (09:34)
[2021-03-07] MEDS: UMECLIDINIUM BRM INH SCH (09:35)
[2021-03-07] MEDS: VILANTEROL TR INH SCH (09:35)
[2021-03-07] MEDS: FLUTICASONE FUROATE 200 MCG INH SCH (09:35)
[2021-03-07] MEDS: Escitalopram 10 MG Tab PO SCH (09:43)
[2021-03-07] MEDS: Enoxaparin 40 MG/0.4 ML Syringe SUBCUT SCH (14:17)
[2021-03-07] MEDS ORDERED: Sodium Chloride 0.65% Nasal Spray 45 ML Bottle NAS PRN (21:21)
[2021-03-08] MEDS: Albuterol/Ipratropium 3.0-0.5 MG/3 ML Neb Soln NEB SCH ×6 (02:00→21:32)
[2021-03-08] MEDS: methylPREDNISolone Sodium Succinate 125 MG/2 ML SDV IVPUSH SCH ×2 (03:43→13:57)
[2021-03-08] MEDS: Divalproex Sodium Delayed-Release 500 MG Tab.CR PO SCH ×3 (05:57→21:30)
[2021-03-08 07:39] LABS: BLOOD UREA NITROGEN,BUN 30 mg/dL (7.0-18.0); CARBON DIOXIDE,CO2 43.2 mmol/L (21.0-32.0); CHLORIDE,CL 98 mmol/L (98-107); GLUCOSE RANDOM 140 mg/dL (74-106); POTASSIUM,K 4.1 mmol/L (3.5-5.1); SODIUM,NA 139 mmol/L (136-145)
[2021-03-08] MEDS: Ascorbic Acid 500 MG Tab PO SCH (09:38)
[2021-03-08] MEDS: Escitalopram 10 MG Tab PO SCH (09:39)
[2021-03-08] MEDS: Calcium Carbonate/Vitamin D3 1500 MG-400 Units Tab PO SCH (09:39)
[2021-03-08] MEDS: Doxycycline 100 MG Cap PO SCH ×2 (09:39→21:31)
[2021-03-08] MEDS: Multivitamin Tab PO SCH (09:41)
[2021-03-08] MEDS: UMECLIDINIUM BRM INH SCH (09:42)
[2021-03-08] MEDS: FLUTICASONE FUROATE 200 MCG INH SCH (09:42)
[2021-03-08] MEDS: VILANTEROL TR INH SCH (09:42)
[2021-03-08] MEDS: cefTRIAXone 1 GM in Sodium Chloride 0.9% 50 ML IV SCH (09:43)
[2021-03-08] MEDS: Codeine/guaiFENesin 10-100 MG/5 ML Syrup 5 ML Cup PO PRN (13:18)
[2021-03-08] MEDS: Enoxaparin 40 MG/0.4 ML Syringe SUBCUT SCH (13:58)
[2021-03-08] MEDS ORDERED: Melatonin 3 MG Tab PO PRN (15:13)
[2021-03-08] MEDS ORDERED: diphenhydrAMINE 25 MG Cap PO PRN (16:26)
[2021-03-09] MEDS: methylPREDNISolone Sodium Succinate 125 MG/2 ML SDV IVPUSH SCH (02:00)
[2021-03-09] MEDS: Albuterol/Ipratropium 3.0-0.5 MG/3 ML Neb Soln NEB SCH ×2 (02:00→05:49)
[2021-03-09] MEDS: Divalproex Sodium Delayed-Release 500 MG Tab.CR PO SCH (05:49)
[2021-03-09 07:59] LABS: BLOOD UREA NITROGEN,BUN 23 mg/dL (7.0-18.0); CARBON DIOXIDE,CO2 41.7 mmol/L (21.0-32.0); CHLORIDE,CL 98 mmol/L (98-107); GLUCOSE RANDOM 82 mg/dL (74-106); POTASSIUM,K 3.8 mmol/L (3.5-5.1); SODIUM,NA 139 mmol/L (136-145)
[2021-03-09] MEDS: FLUTICASONE FUROATE 200 MCG INH SCH (09:20)
[2021-03-09] MEDS: VILANTEROL TR INH SCH (09:20)
[2021-03-09] MEDS: UMECLIDINIUM BRM INH SCH (09:20)
[2021-03-09] MEDS: Multivitamin Tab PO SCH (09:21)
[2021-03-09] MEDS: Ascorbic Acid 500 MG Tab PO SCH (09:21)
[2021-03-09] MEDS: Calcium Carbonate/Vitamin D3 1500 MG-400 Units Tab PO SCH (09:21)
[2021-03-09] MEDS: Escitalopram 10 MG Tab PO SCH (09:22)
[2021-03-09 13:21] VITALS: BP 133/76; PULSE 80
== END 2021-03-09 11:55 | disposition home or self-care (01) | DRG 133 ==
LOC: MW.ED 02:49 → MW.MS 05:19
PROVIDERS: ADMIT Internal Medicine; ATTEND Internal Medicine
DX: J96.21 Acute and chronic respiratory failure with hypoxia (principal); J44.1 Chronic obstructive pulmonary disease with (acute) exacerbation; J84.10 Pulmonary fibrosis, unspecified; R53.1 Weakness; Z66 Do not resuscitate; R00.0 Tachycardia, unspecified; F41.9 Anxiety disorder, unspecified; Z20.822 Contact with and (suspected) exposure to COVID-19; D69.6 Thrombocytopenia, unspecified; G40.909 Epilepsy, unspecified, not intractable, without status epilepticus; Z72.0 Tobacco use; Z87.81 Personal history of (healed) traumatic fracture; Z71.6 Tobacco abuse counseling; Z97.3 Presence of spectacles and contact lenses
CPT/HCPCS: 36415; 71045; 71045-26; 71275; 71275-26; 80048; 80053; 83880; 84484; 85025; 93005; 94640; 96365; 96375; 97161-GP; 97530-GP; 99285-25; A9270-GY; J0696; J1650; J1956; J2060; J2930; J7620-GY; Q9967; U0002

== ENCOUNTER 2021-03-15 11:07 | Observation (INO) | payer BC ==
[2021-03-15] MEDS ORDERED: Aspirin 81 MG Tab.Chew PO ONE (11:24)
[2021-03-15] MEDS ORDERED: methylPREDNISolone Sodium Succinate 125 MG/2 ML SDV IVPUSH ONE (11:33)
[2021-03-15] MEDS ORDERED: Sodium Chloride 0.9% 1,000 ML IV ONE (11:33)
[2021-03-15] MEDS ORDERED: Albuterol/Ipratropium 3.0-0.5 MG/3 ML Neb Soln NEB ONE (11:33)
[2021-03-15] MEDS ORDERED: Morphine 2 MG/ML SYRINGE IVPUSH ONE (11:35)
[2021-03-15 11:57] LABS: BLOOD UREA NITROGEN,BUN 18 mg/dL (7.0-18.0); CARBON DIOXIDE,CO2 37.9 mmol/L (21.0-32.0); CHLORIDE,CL 98 mmol/L (98-107); GLUCOSE RANDOM 67 mg/dL (74-106); POTASSIUM,K 4.6 mmol/L (3.5-5.1); SODIUM,NA 139 mmol/L (136-145)
[2021-03-15 12:17] LABS: CORONAVIRUS COVID-19 NAA NEGATIVE (NEGATIVE); INFLUENZA A NAA NEGATIVE (NEGATIVE); INFLUENZA B NAA NEGATIVE (NEGATIVE)
[2021-03-15] MEDS ORDERED: cefTRIAXone 1 GM in Sodium Chloride 0.9% 50 ML IV ONE (12:28)
[2021-03-15] MEDS ORDERED: Divalproex Sodium Delayed-Release 500 MG Tab.CR PO ONE (12:29)
[2021-03-15] MEDS ORDERED: Sodium Chloride 0.9% 50 ML ONE (12:39)
[2021-03-15] MEDS ORDERED: Codeine/guaiFENesin 10-100 MG/5 ML Syrup 5 ML Cup PO PRN (17:00)
[2021-03-15] MEDS ORDERED: Azithromycin 500 MG Vial IV SCH (17:00)
[2021-03-15] MEDS ORDERED: Morphine 2 MG/ML SYRINGE IVPUSH PRN (17:00)
[2021-03-15] MEDS ORDERED: oxyCODONE 5 MG Tab PO PRN (17:00)
[2021-03-15] MEDS: Enoxaparin 40 MG/0.4 ML Syringe SUBCUT SCH (17:34)
[2021-03-15] MEDS: Azithromycin 500 MG in Sodium Chloride 0.9% 250 ML IV SCH (17:35)
[2021-03-15] MEDS: Albuterol/Ipratropium 3.0-0.5 MG/3 ML Neb Soln NEB SCH (17:39)
[2021-03-15] MEDS: Divalproex Sodium Delayed-Release 500 MG Tab.CR PO SCH (21:41)
[2021-03-15] MEDS: methylPREDNISolone Sodium Succinate 40 MG/1 ML SDV IVPUSH SCH (21:41)
[2021-03-16] MEDS: Albuterol/Ipratropium 3.0-0.5 MG/3 ML Neb Soln NEB SCH ×4 (00:09→17:32)
[2021-03-16] MEDS: Divalproex Sodium Delayed-Release 500 MG Tab.CR PO SCH ×3 (05:40→20:59)
[2021-03-16 07:29] LABS: BLOOD UREA NITROGEN,BUN 19 mg/dL (7.0-18.0); CARBON DIOXIDE,CO2 35.2 mmol/L (21.0-32.0); CHLORIDE,CL 102 mmol/L (98-107); GLUCOSE RANDOM 221 mg/dL (74-106); POTASSIUM,K 4.2 mmol/L (3.5-5.1); SODIUM,NA 138 mmol/L (136-145)
[2021-03-16] MEDS: Escitalopram 10 MG Tab PO SCH (08:45)
[2021-03-16] MEDS: UMECLIDINIUM BRM INH SCH (09:00)
[2021-03-16] MEDS: VILANTEROL TR INH SCH (09:00)
[2021-03-16] MEDS ORDERED: Fluconazole 150 MG Tab PO ONE ×2 (09:19→12:30)
[2021-03-16] MEDS: methylPREDNISolone Sodium Succinate 40 MG/1 ML SDV IVPUSH SCH ×2 (10:04→20:59)
[2021-03-16] MEDS ORDERED: Naproxen 500 MG Tab PO ONE (11:30)
[2021-03-16] MEDS ORDERED: Ibuprofen 200 MG Tab PO PRN (12:00)
[2021-03-16] MEDS ORDERED: Nystatin Susp 100,000 Unit/ML 5 ML UD Cup PO ONE (12:01)
[2021-03-16] MEDS: Enoxaparin 40 MG/0.4 ML Syringe SUBCUT SCH (17:11)
[2021-03-16] MEDS: Azithromycin 500 MG in Sodium Chloride 0.9% 250 ML IV SCH (17:11)
[2021-03-16] MEDS ORDERED: Naproxen 500 MG Tab PO PRN (22:09)
[2021-03-17] MEDS: Albuterol/Ipratropium 3.0-0.5 MG/3 ML Neb Soln NEB SCH ×3 (00:35→11:40)
[2021-03-17 05:22] LABS: BLOOD UREA NITROGEN,BUN 27 mg/dL (7.0-18.0); CARBON DIOXIDE,CO2 37.1 mmol/L (21.0-32.0); CHLORIDE,CL 104 mmol/L (98-107); GLUCOSE RANDOM 118 mg/dL (74-106); POTASSIUM,K 4.3 mmol/L (3.5-5.1); SODIUM,NA 139 mmol/L (136-145)
[2021-03-17] MEDS: Divalproex Sodium Delayed-Release 500 MG Tab.CR PO SCH (05:41)
[2021-03-17] MEDS ORDERED: Naproxen 500 MG Tab PO PRN (07:26)
[2021-03-17] MEDS: Escitalopram 10 MG Tab PO SCH (08:17)
[2021-03-17] MEDS: UMECLIDINIUM BRM INH SCH (08:21)
[2021-03-17] MEDS: VILANTEROL TR INH SCH (08:21)
[2021-03-17] MEDS: methylPREDNISolone Sodium Succinate 40 MG/1 ML SDV IVPUSH SCH (10:43)
[2021-03-17] MEDS ORDERED: Azithromycin 250 MG Tab PO SCH ×2 (11:30→14:00)
[2021-03-17 12:05] VITALS: BP 145/67; PULSE 100
[2021-03-18] MEDS ORDERED: Escitalopram 10 MG Tab PO SCH (09:00)
== END 2021-03-17 13:00 | disposition home or self-care (01) ==
LOC: MW.ED 11:07 → MW.MS 15:26 → INTOOBSV 15:26 → MW.MS 16:28
PROVIDERS: ADMIT Internal Medicine; ATTEND Internal Medicine
DX: J44.1 Chronic obstructive pulmonary disease with (acute) exacerbation (principal); J18.9 Pneumonia, unspecified organism; Z20.822 Contact with and (suspected) exposure to COVID-19; Z88.2 Allergy status to sulfonamides; Z79.899 Other long term (current) drug therapy
CPT/HCPCS: 0240U; 36415; 71045; 80048; 80053; 82947; 83880; 84484; 85025; 85027; 85379; 93005; 94640; 96365; 96375; 99285; A9270; J0456; J0696; J1650; J2270; J2920; J2930; J7030; J7050; J7620-GY

== ENCOUNTER 2022-06-06 13:39 | Day surgery (SDC) | payer BC, MEDICARE ==
[~2022-06-06 13:39] MED LIST changes: -Lidocaine 2% 5 ML SDV ONE; -Ondansetron 4 MG/2 ML SDV ONE; +Propofol 200 MG/20 ML SDV ONE; -Sodium Chloride 0.9% 10 ML SDV IV PRN; +Sodium Chloride 0.9% 20 ML SDV IV PRN; -fentaNYL 100 MCG/2 ML SDV ONE; -propofoL 50 ML ONE
[2022-06-06] MEDS ORDERED: fentaNYL 100 MCG/2 ML SDV ONE (15:20)
[2022-06-06] MEDS ORDERED: Lidocaine 2% 5 ML SDV ONE (15:20)
[2022-06-06 16:10] VITALS: BP 117/72; PULSE 94
== END 2022-06-06 16:19 | disposition home or self-care (01) ==
LOC: MW.SDS 13:39
PROVIDERS: ATTEND Surgery
DX: K29.50 Unspecified chronic gastritis without bleeding (principal); R63.4 Abnormal weight loss; J44.9 Chronic obstructive pulmonary disease, unspecified; M19.90 Unspecified osteoarthritis, unspecified site; F41.8 Other specified anxiety disorders; G40.909 Epilepsy, unspecified, not intractable, without status epilepticus; Z88.2 Allergy status to sulfonamides; Z79.899 Other long term (current) drug therapy; Z87.891 Personal history of nicotine dependence
CPT/HCPCS: 43239; J2704; J3010; J7120; 00731; 88305; 88342; J3490

== ENCOUNTER 2023-01-14 21:30 | Inpatient (IN) | payer MEDICARE ==
[2023-01-14] MEDS ORDERED: Sodium Chloride 0.9% 2.5 ML Syringe FLUSH PRN (21:39)
[2023-01-14] MEDS ORDERED: Sodium Chloride 0.9% 10 ML Syringe FLUSH PRN (21:39)
[2023-01-14] MEDS ORDERED: Albuterol/Ipratropium 3.0-0.5 MG/3 ML Neb Soln NEB ONE (21:43)
[2023-01-14] MEDS ORDERED: Albuterol 0.083% 2.5 MG/3 ML Neb Soln NEB ONE (21:43)
[2023-01-14] MEDS ORDERED: Cefepime 2 GM in Sodium Chloride 0.9% 50 ML IV ONE (21:43)
[2023-01-14 21:52] LABS: BASE EXCESS VENOUS 21.7 (-2.0-3.0); PH,VENOUS 7.44 (7.31-7.41)
[2023-01-14 21:53] LABS: BASOPHILS ABSOLUTE AUTO 0.02 K/uL (0.00-0.20); BASOPHILS PERCENT AUTO 0.3 % (0.0-1.0); EOSINOPHILS ABSOLUTE AUTO 0.01 K/uL (0.00-0.45); EOSINOPHILS PERCENT AUTO 0.2 % (0.0-6.0); HEMATOCRIT 36.1 % (37.0-47.0); HEMOGLOBIN 12.1 g/dL (12.0-16.0); IMMATURE GRAN ABSOLUTE AUTO 0.04 K/uL (0.00-0.05); IMMATURE GRAN PERCENT AUTO 0.7 % (0.0-0.4); LYMPHOCYTES ABSOLUTE AUTO 0.73 K/uL (1.00-4.80); LYMPHOCYTES PERCENT AUTO 12.4 % (24.0-44.0); MEAN CORPUSCULAR HEMOGLOBIN 33.1 pg (28.0-32.0); MEAN CORPUSCULAR HGB CONC 33.5 g/dL (32.0-36.0); MEAN CORPUSCULAR VOLUME 98.6 fL (83.0-99.0); MEAN PLATELET VOLUME 10.8 fL (9.4-12.3); MONOCYTES ABSOLUTE AUTO 0.89 K/uL (0.00-0.80); MONOCYTES PERCENT AUTO 15.1 % (0.0-8.0); NEUTROPHILS ABSOLUTE AUTO 4.22 K/uL (1.80-7.70); NEUTROPHILS PERCENT AUTO 71.3 % (41.0-71.0); PLATELET COUNT,PLT 77 K/uL (150-400); RED BLOOD CELL COUNT 3.66 M/uL (4.10-5.30); WHITE BLOOD CELL COUNT,WBC 5.91 K/uL (3.9-11.3)
[2023-01-14 22:14] LABS: PCO2 ARTERIAL 72 mmHG (35-45); PO2 ARTERIAL 84 mmHG (80-105)
[2023-01-14 22:15] LABS: BICARBONATE,ARTERIAL 46 mEq/L (22-26)
[2023-01-14 22:18] LABS: INR 1.19 (0.86-1.11)
[2023-01-14 22:30] LABS: A/G RATIO 0.7 (0.9-1.6); ALANINE AMINOTRANSFERASE,ALT 15 IU/L (14-63); ALBUMIN 2.7 g/dL (3.4-5.0); ALKALINE PHOSPHATASE 63 U/L (46-116); ASPARTATE AMNIOTRANSFERASE,AST 21 IU/L (15-37); BILIRUBIN TOTAL 0.4 mg/dL (0.2-1.0); BLOOD UREA NITROGEN,BUN 21 mg/dL (7.0-18.0); CALCIUM 8.9 mg/dL (8.5-10.1); CHLORIDE,CL 88 mmol/L (98-107); CREATINE KINASE,CK 27 U/L (26-308); CREATININE 0.9 mg/dL (0.6-1.0); EST CRCL DRUG DOSING (CG) 53.37 mL/min; GLUCOSE RANDOM 117 mg/dL (74-106); LIPASE 33 U/L (16-77); MAGNESIUM 1.6 mg/dL (1.8-2.4); POTASSIUM,K 3.6 mmol/L (3.5-5.1); PROTEIN TOTAL,TP 6.4 g/dL (6.4-8.2); SODIUM,NA 131 mmol/L (136-145); TSH ULTRASENSITIVE 2.43 uIU/mL (0.36-3.74)
[2023-01-14 22:34] LABS: LACTIC ACID 1.1 mmol/L (0.4-2.0)
[2023-01-14 22:44] LABS: CARBON DIOXIDE,CO2 45.9 mmol/L (21.0-32.0); ESTIMATED GFR 72 mL/min (>60)
[2023-01-14 22:51] LABS: CORONAVIRUS COVID-19 NAA POSITIVE (NEGATIVE); INFLUENZA A NAA NEGATIVE (NEGATIVE); INFLUENZA B NAA NEGATIVE (NEGATIVE); RESPIRATORY SYNCYTIAL VIR NAA NEGATIVE (NEGATIVE)
[2023-01-14] MEDS ORDERED: Dexamethasone 10 MG/ML SDV IVPUSH ONE (22:52)
[2023-01-14] MEDS ORDERED: Magnesium Sulfate/Water 2 GM in Premix Bag 1 BAG IV ONE (22:54)
[2023-01-15] MEDS ORDERED: Albuterol/Ipratropium 3.0-0.5 MG/3 ML Neb Soln NEB PRN (02:33)
[2023-01-15] MEDS ORDERED: Enoxaparin 40 MG/0.4 ML Syringe SUBCUT SCH (02:45)
[2023-01-15] MEDS: cefTRIAXone 1 GM in Sodium Chloride 0.9% 50 ML IV SCH (05:22)
[2023-01-15 06:47] LABS: BASOPHILS ABSOLUTE AUTO 0.01 K/uL (0.00-0.20); BASOPHILS PERCENT AUTO 0.2 % (0.0-1.0); HEMATOCRIT 30.6 % (37.0-47.0); HEMOGLOBIN 10.4 g/dL (12.0-16.0); IMMATURE GRAN ABSOLUTE AUTO 0.03 K/uL (0.00-0.05); IMMATURE GRAN PERCENT AUTO 0.7 % (0.0-0.4); LYMPHOCYTES ABSOLUTE AUTO 0.31 K/uL (1.00-4.80); LYMPHOCYTES PERCENT AUTO 7.1 % (24.0-44.0); MEAN CORPUSCULAR HEMOGLOBIN 33.2 pg (28.0-32.0); MEAN CORPUSCULAR VOLUME 97.8 fL (83.0-99.0); MEAN PLATELET VOLUME 10.2 fL (9.4-12.3); MONOCYTES ABSOLUTE AUTO 0.13 K/uL (0.00-0.80); NEUTROPHILS ABSOLUTE AUTO 3.86 K/uL (1.80-7.70); PLATELET COUNT,PLT 78 K/uL (150-400); RED BLOOD CELL COUNT 3.13 M/uL (4.10-5.30); WHITE BLOOD CELL COUNT,WBC 4.34 K/uL (3.9-11.3)
[2023-01-15 07:13] LABS: A/G RATIO 0.7 (0.9-1.6); ALBUMIN 2.1 g/dL (3.4-5.0); BILIRUBIN TOTAL 0.3 mg/dL (0.2-1.0); CALCIUM 8.5 mg/dL (8.5-10.1); CREATININE 0.7 mg/dL (0.6-1.0); EST CRCL DRUG DOSING (CG) 68.62 mL/min; POTASSIUM,K 3.2 mmol/L (3.5-5.1); PROTEIN TOTAL,TP 5.3 g/dL (6.4-8.2)
[2023-01-15 07:37] LABS: CARBON DIOXIDE,CO2 47.6 mmol/L (21.0-32.0)
[2023-01-15] MEDS ORDERED: Ondansetron 4 MG/2 ML SDV IVPUSH PRN (08:35)
[2023-01-15] MEDS ORDERED: Acetaminophen 325 MG Tab PO PRN (08:35)
[2023-01-15] MEDS ORDERED: Potassium Chloride 20 MEQ Tab.ER PO ONE (08:40)
[2023-01-15] MEDS ORDERED: REMDESIVIR 100 MG in Sodium Chloride 0.9% 100 ML IV SCH (09:00)
[2023-01-15 10:20] LABS: APPEARANCE,URINE CLEAR; BILIRUBIN,URINE NEGATIVE (NEGATIVE); COLOR,URINE YELLOW; GLUCOSE,URINE NEGATIVE (NEGATIVE); KETONES,URINE TRACE mg/dL (NEGATIVE); LEUKOCYTE ESTERASE,URINE SMALL (NEGATIVE); NITRITE,URINE NEGATIVE (NEGATIVE); OCCULT BLOOD,URINE NEGATIVE (NEGATIVE); PROTEIN,URINE NEGATIVE (NEGATIVE); UROBILINOGEN,URINE 0.2 EU/dL (<2.0)
[2023-01-15 10:30] LABS: BACTERIA,URINE RARE (NEGATIVE); EPITHELIAL CELLS,URINE RARE (NONE-FEW); RBC,URINE 0-2 (0-2/HPF)
[2023-01-15] MEDS: Divalproex Sodium Delayed-Release 500 MG Tab.CR PO SCH ×2 (13:54→22:42)
[2023-01-15] MEDS: FLUTICASONE FUROATE 200 MCG INH SCH (16:49)
[2023-01-15] MEDS: UMECLIDINIUM BRM INH SCH (16:49)
[2023-01-15] MEDS: VILANTEROL TR INH SCH (16:49)
[2023-01-15 17:43] LABS: BICARBONATE,ARTERIAL 50 mEq/L (22-26); PCO2 ARTERIAL 68 mmHG (35-45); PO2 ARTERIAL 69 mmHG (80-105)
[2023-01-15] MEDS ORDERED: Mirtazapine 15 MG Tab PO SCH (21:00)
[2023-01-16] MEDS: cefTRIAXone 1 GM in Sodium Chloride 0.9% 50 ML IV SCH (05:21)
[2023-01-16] MEDS: Divalproex Sodium Delayed-Release 500 MG Tab.CR PO SCH ×2 (05:21→13:47)
[2023-01-16 05:40] LABS: BASOPHILS ABSOLUTE AUTO 0.01 K/uL (0.00-0.20); BASOPHILS PERCENT AUTO 0.2 % (0.0-1.0); EOSINOPHILS ABSOLUTE AUTO 0.02 K/uL (0.00-0.45); EOSINOPHILS PERCENT AUTO 0.4 % (0.0-6.0); HEMATOCRIT 30.7 % (37.0-47.0); HEMOGLOBIN 10.2 g/dL (12.0-16.0); IMMATURE GRAN ABSOLUTE AUTO 0.05 K/uL (0.00-0.05); IMMATURE GRAN PERCENT AUTO 1.1 % (0.0-0.4); LYMPHOCYTES ABSOLUTE AUTO 0.82 K/uL (1.00-4.80); LYMPHOCYTES PERCENT AUTO 18.3 % (24.0-44.0); MEAN CORPUSCULAR HEMOGLOBIN 32.9 pg (28.0-32.0); MEAN CORPUSCULAR HGB CONC 33.2 g/dL (32.0-36.0); MEAN PLATELET VOLUME 11.1 fL (9.4-12.3); MONOCYTES ABSOLUTE AUTO 0.73 K/uL (0.00-0.80); MONOCYTES PERCENT AUTO 16.3 % (0.0-8.0); NEUTROPHILS ABSOLUTE AUTO 2.86 K/uL (1.80-7.70); NEUTROPHILS PERCENT AUTO 63.7 % (41.0-71.0); PLATELET COUNT,PLT 82 K/uL (150-400); WHITE BLOOD CELL COUNT,WBC 4.49 K/uL (3.9-11.3)
[2023-01-16 05:56] LABS: CALCIUM 8.6 mg/dL (8.5-10.1); CREATININE 0.6 mg/dL (0.6-1.0); EST CRCL DRUG DOSING (CG) 80.06 mL/min
[2023-01-16 07:02] LABS: CARBON DIOXIDE,CO2 51.2 mmol/L (21.0-32.0)
[2023-01-16] MEDS ORDERED: Benzonatate 100 MG Cap PO PRN (08:02)
[2023-01-16] MEDS: FLUTICASONE FUROATE 200 MCG INH SCH ×2 (08:58→10:14)
[2023-01-16] MEDS: UMECLIDINIUM BRM INH SCH (09:00)
[2023-01-16] MEDS: VILANTEROL TR INH SCH (09:00)
[2023-01-16] MEDS ORDERED: Dexamethasone 4 MG/ML SDV IVPUSH SCH (10:00)
[2023-01-16] MEDS ORDERED: Codeine/guaiFENesin 10-100 MG/5 ML Syrup 5 ML Cup PO PRN (10:51)
[2023-01-16] MEDS ORDERED: predniSONE 20 MG Tab PO ONE (10:58)
[2023-01-16 13:23] VITALS: BP 98/58; PULSE 75
[2023-01-17] MEDS ORDERED: Dexamethasone 4 MG/ML SDV IVPUSH SCH (09:00)
== END 2023-01-16 13:50 | disposition home or self-care (01) | DRG 177 ==
LOC: MW.ED 21:30 → MW.MS 01-15 00:11
PROVIDERS: ADMIT Internal Medicine; ATTEND Internal Medicine
DX: U07.1 COVID-19 (principal); J96.01 Acute respiratory failure with hypoxia; J96.11 Chronic respiratory failure with hypoxia; J96.12 Chronic respiratory failure with hypercapnia; J44.9 Chronic obstructive pulmonary disease, unspecified; J96.21 Acute and chronic respiratory failure with hypoxia; Z79.899 Other long term (current) drug therapy; J44.1 Chronic obstructive pulmonary disease with (acute) exacerbation; I50.9 Heart failure, unspecified; G40.909 Epilepsy, unspecified, not intractable, without status epilepticus; D69.6 Thrombocytopenia, unspecified; E78.00 Pure hypercholesterolemia, unspecified; M19.90 Unspecified osteoarthritis, unspecified site; Z90.49 Acquired absence of other specified parts of digestive tract; Z98.890 Other specified postprocedural states; Z88.2 Allergy status to sulfonamides
CPT/HCPCS: 0241U; 36415; 36600; 70450; 71045; 72125; 80048; 80053; 81001; 82248; 82550; 82803; 83605; 83690; 83735; 83880; 84443; 84484; 85025; 85610; 87040; 93005; 94640; 94667; 93010; 96365; 96375; 99222; 99239; 99285-25; 99291; A9270-GY; J0692; J0696; J1100; J3475; J3490; J7620-GY

== ENCOUNTER 2023-08-30 09:41 | Emergency (ER) | payer MEDICARE ==
[2023-08-30] MEDS ORDERED: Sodium Chloride 0.9% 10 ML Syringe FLUSH PRN (10:12)
[2023-08-30] MEDS ORDERED: Sodium Chloride 0.9% 2.5 ML Syringe FLUSH PRN (10:12)
[2023-08-30 10:31] LABS: BASE EXCESS VENOUS 16.5 (-2.0-3.0); BICARBONATE,VENOUS 46 mEQ/mL (22-28); PCO2 VENOUS 76 mmHG (41-51); PH,VENOUS 7.39 (7.31-7.41)
[2023-08-30 10:34] LABS: PO2 VENOUS < 30 mmHG (35-45)
[2023-08-30 10:57] LABS: BASOPHILS ABSOLUTE AUTO 0.02 K/uL (0.00-0.20); BASOPHILS PERCENT AUTO 0.3 % (0.0-1.0); EOSINOPHILS ABSOLUTE AUTO 0.02 K/uL (0.00-0.45); EOSINOPHILS PERCENT AUTO 0.3 % (0.0-6.0); HEMATOCRIT 42.3 % (37.0-47.0); HEMOGLOBIN 13.7 g/dL (12.0-16.0); IMMATURE GRAN ABSOLUTE AUTO 0.03 K/uL (0.00-0.05); IMMATURE GRAN PERCENT AUTO 0.4 % (0.0-0.4); LYMPHOCYTES PERCENT AUTO 10.4 % (24.0-44.0); MEAN CORPUSCULAR HEMOGLOBIN 33.6 pg (28.0-32.0); MEAN CORPUSCULAR HGB CONC 32.4 g/dL (32.0-36.0); MEAN CORPUSCULAR VOLUME 103.7 fL (83.0-99.0); MEAN PLATELET VOLUME 10.3 fL (9.4-12.3); MONOCYTES ABSOLUTE AUTO 1.38 K/uL (0.00-0.80); MONOCYTES PERCENT AUTO 17.9 % (0.0-8.0); NEUTROPHILS ABSOLUTE AUTO 5.47 K/uL (1.80-7.70); NEUTROPHILS PERCENT AUTO 70.7 % (41.0-71.0); PLATELET COUNT,PLT 96 K/uL (150-400); RED BLOOD CELL COUNT 4.08 M/uL (4.10-5.30); WHITE BLOOD CELL COUNT,WBC 7.72 K/uL (3.9-11.3)
[2023-08-30 11:10] LABS: A/G RATIO 0.8 (0.9-1.6); ALANINE AMINOTRANSFERASE,ALT 10 IU/L (14-63); ALBUMIN 2.9 g/dL (3.4-5.0); ALKALINE PHOSPHATASE 73 U/L (46-116); ASPARTATE AMNIOTRANSFERASE,AST 22 IU/L (15-37); BILIRUBIN TOTAL 0.8 mg/dL (0.2-1.0); BLOOD UREA NITROGEN,BUN 15 mg/dL (7.0-18.0); CALCIUM 9.3 mg/dL (8.5-10.1); CARBON DIOXIDE,CO2 38.6 mmol/L (21.0-32.0); CHLORIDE,CL 90 mmol/L (98-107); CREATININE 0.9 mg/dL (0.6-1.0); GLUCOSE RANDOM 103 mg/dL (74-106); LIPASE 18 U/L (16-77); POTASSIUM,K 4.6 mmol/L (3.5-5.1); PRO B-TYPE NATRIUR PEPT,BNPPRO 346 pg/mL (0-125); PROTEIN TOTAL,TP 6.6 g/dL (6.4-8.2); SODIUM,NA 134 mmol/L (136-145)
[2023-08-30 11:14] LABS: ESTIMATED GFR 72 mL/min (>60)
[2023-08-30] MEDS: methylPREDNISolone Sodium Succinate 125 MG/2 ML SDV IVPUSH STA (11:24)
[2023-08-30] MEDS: Levofloxacin/Dextrose 5%-Water 750 MG in Premix Bag 1 BAG IV STA (11:24)
[2023-08-30] MEDS: Albuterol 0.083% 2.5 MG/3 ML Neb Soln NEB STA (11:38)
[2023-08-30] MEDS: Albuterol/Ipratropium 3.0-0.5 MG/3 ML Neb Soln NEB STA (11:38)
[2023-08-30 11:46] LABS: APPEARANCE,URINE CLEAR; BILIRUBIN,URINE NEGATIVE (NEGATIVE); COLOR,URINE YELLOW; GLUCOSE,URINE NEGATIVE (NEGATIVE); KETONES,URINE NEGATIVE (NEGATIVE); LEUKOCYTE ESTERASE,URINE TRACE (NEGATIVE); NITRITE,URINE NEGATIVE (NEGATIVE); OCCULT BLOOD,URINE NEGATIVE (NEGATIVE); PROTEIN,URINE NEGATIVE (NEGATIVE); UROBILINOGEN,URINE 0.2 EU/dL (<2.0)
[2023-08-30 11:56] LABS: BACTERIA,URINE RARE (NEGATIVE); EPITHELIAL CELLS,URINE RARE (NONE-FEW); MUCUS,URINE LIGHT (NONE-MOD); RBC,URINE NONE SEEN (0-2/HPF); WBC,URINE 0-1 (0-5/HPF)
[2023-08-30 13:09] VITALS: BP 105/62; PULSE 109
== END 2023-08-30 13:51 | disposition home or self-care (01) ==
LOC: MW.ED 09:41
DX: J44.1 Chronic obstructive pulmonary disease with (acute) exacerbation (principal); E78.00 Pure hypercholesterolemia, unspecified; I50.9 Heart failure, unspecified; Z79.899 Other long term (current) drug therapy; Z88.2 Allergy status to sulfonamides; Z75.8 Other problems related to medical facilities and other health care
CPT/HCPCS: 36415; 71045; 80053; 81001; 82803; 83690; 83880; 84484; 85025; 87040; 87086; 93005; 94640; 96365; 96375; 99285; J1956; J2919; 93010; 99284; J7620-GY

== ENCOUNTER 2023-10-31 15:22 | Emergency (ER) | payer MEDICARE ==
[2023-10-31] MEDS ORDERED: Sodium Chloride 0.9% 10 ML Syringe FLUSH PRN (15:24)
[2023-10-31] MEDS ORDERED: Sodium Chloride 0.9% 2.5 ML Syringe FLUSH PRN (15:24)
[2023-10-31 15:43] LABS: BASE EXCESS VENOUS 12.1 (-2.0-3.0); PH,VENOUS 7.4 (7.31-7.41)
[2023-10-31 16:10] LABS: BASOPHILS ABSOLUTE AUTO 0.02 K/uL (0.00-0.20); BASOPHILS PERCENT AUTO 0.2 % (0.0-1.0); EOSINOPHILS ABSOLUTE AUTO 0.02 K/uL (0.00-0.45); EOSINOPHILS PERCENT AUTO 0.2 % (0.0-6.0); HEMATOCRIT 39.2 % (37.0-47.0); HEMOGLOBIN 12.7 g/dL (12.0-16.0); IMMATURE GRAN ABSOLUTE AUTO 0.04 K/uL (0.00-0.05); IMMATURE GRAN PERCENT AUTO 0.3 % (0.0-0.4); LYMPHOCYTES ABSOLUTE AUTO 0.78 K/uL (1.00-4.80); LYMPHOCYTES PERCENT AUTO 6.7 % (24.0-44.0); MEAN CORPUSCULAR HEMOGLOBIN 33.4 pg (28.0-32.0); MEAN CORPUSCULAR HGB CONC 32.4 g/dL (32.0-36.0); MEAN CORPUSCULAR VOLUME 103.2 fL (83.0-99.0); MEAN PLATELET VOLUME 11.8 fL (9.4-12.3); MONOCYTES ABSOLUTE AUTO 1.38 K/uL (0.00-0.80); MONOCYTES PERCENT AUTO 11.9 % (0.0-8.0); NEUTROPHILS ABSOLUTE AUTO 9.33 K/uL (1.80-7.70); NEUTROPHILS PERCENT AUTO 80.7 % (41.0-71.0); PLATELET COUNT,PLT 83 K/uL (150-400); WHITE BLOOD CELL COUNT,WBC 11.57 K/uL (3.9-11.3)
[2023-10-31 16:19] LABS: A/G RATIO 1.1 (0.9-1.6); ALANINE AMINOTRANSFERASE,ALT 17 IU/L (14-63); ALBUMIN 3.2 g/dL (3.4-5.0); ALKALINE PHOSPHATASE 61 U/L (46-116); ASPARTATE AMNIOTRANSFERASE,AST 20 IU/L (15-37); BILIRUBIN TOTAL 0.5 mg/dL (0.2-1.0); BLOOD UREA NITROGEN,BUN 22 mg/dL (7.0-18.0); CALCIUM 9.1 mg/dL (8.5-10.1); CHLORIDE,CL 101 mmol/L (98-107); CREATININE 0.9 mg/dL (0.6-1.0); EST CRCL DRUG DOSING (CG) 51.31 mL/min; GLUCOSE RANDOM 124 mg/dL (74-106); LIPASE 24 U/L (16-77); POTASSIUM,K 3.7 mmol/L (3.5-5.1); PRO B-TYPE NATRIUR PEPT,BNPPRO 227 pg/mL (0-125); PROTEIN TOTAL,TP 6.2 g/dL (6.4-8.2); SODIUM,NA 142 mmol/L (136-145)
[2023-10-31 16:20] LABS: ESTIMATED GFR 72 mL/min (>60)
[2023-10-31] MEDS: Albuterol 0.083% 2.5 MG/3 ML Neb Soln NEB STA (16:22)
[2023-10-31] MEDS: methylPREDNISolone Sodium Succinate 125 MG/2 ML SDV IVPUSH STA (16:55)
[2023-10-31] MEDS: Ondansetron 4 MG/2 ML SDV IVPUSH STA (16:55)
[2023-10-31] MEDS: Morphine 2 MG/ML SYRINGE IVPUSH STA (16:56)
[2023-10-31] MEDS: Iopamidol 755 MG/ML 500 ML Multipack Bottle IVPUSH STA (17:07)
[2023-10-31] MEDS: Albuterol/Ipratropium 3.0-0.5 MG/3 ML Neb Soln NEB STA (17:17)
[2023-10-31 19:03] VITALS: BP 98/58; PULSE 106
== END 2023-10-31 19:02 | disposition home or self-care (01) ==
LOC: MW.ED 15:22
DX: J18.1 Lobar pneumonia, unspecified organism (principal); I50.9 Heart failure, unspecified; E78.00 Pure hypercholesterolemia, unspecified; J44.9 Chronic obstructive pulmonary disease, unspecified; Z86.16 Personal history of COVID-19; Z87.891 Personal history of nicotine dependence; Z88.2 Allergy status to sulfonamides; Z75.8 Other problems related to medical facilities and other health care; Z79.899 Other long term (current) drug therapy
CPT/HCPCS: 36415; 71045; 71260; 80053; 82803; 83690; 83880; 84484; 85025; 93005; 94640; 96374; 96375; 99285; J2270; J2405; J2919; Q9967; J7620-GY

== ENCOUNTER 2024-04-05 02:17 | Emergency (ER) | payer MEDICARE ==
[2024-04-05] MEDS: Albuterol/Ipratropium 3.0-0.5 MG/3 ML Neb Soln NEB ONE (02:40)
[2024-04-05] MEDS: predniSONE 20 MG Tab PO ONE (02:41)
[2024-04-05 03:00] LABS: BLOOD UREA NITROGEN,BUN 29 mg/dL (7.0-18.0); CALCIUM 9.2 mg/dL (8.5-10.1); CARBON DIOXIDE,CO2 33.4 mmol/L (21.0-32.0); CHLORIDE,CL 93 mmol/L (98-107); CREATININE 0.8 mg/dL (0.6-1.0); GLUCOSE RANDOM 125 mg/dL (74-106); POTASSIUM,K 3.9 mmol/L (3.5-5.1); SODIUM,NA 136 mmol/L (136-145)
[2024-04-05 03:03] LABS: BASOPHILS ABSOLUTE AUTO 0.01 K/uL (0.00-0.20); BASOPHILS PERCENT AUTO 0.2 % (0.0-1.0); HEMATOCRIT 38.6 % (37.0-47.0); HEMOGLOBIN 12.7 g/dL (12.0-16.0); IMMATURE GRAN ABSOLUTE AUTO 0.01 K/uL (0.00-0.05); IMMATURE GRAN PERCENT AUTO 0.2 % (0.0-0.4); LYMPHOCYTES ABSOLUTE AUTO 0.59 K/uL (1.00-4.80); LYMPHOCYTES PERCENT AUTO 11.3 % (24.0-44.0); MEAN CORPUSCULAR HEMOGLOBIN 33.3 pg (28.0-32.0); MEAN CORPUSCULAR HGB CONC 32.9 g/dL (32.0-36.0); MEAN CORPUSCULAR VOLUME 101.3 fL (83.0-99.0); MEAN PLATELET VOLUME 11.5 fL (9.4-12.3); MONOCYTES ABSOLUTE AUTO 0.93 K/uL (0.00-0.80); MONOCYTES PERCENT AUTO 17.8 % (0.0-8.0); NEUTROPHILS ABSOLUTE AUTO 3.69 K/uL (1.80-7.70); NEUTROPHILS PERCENT AUTO 70.5 % (41.0-71.0); PLATELET COUNT,PLT 55 K/uL (150-400); RED BLOOD CELL COUNT 3.81 M/uL (4.10-5.30); WHITE BLOOD CELL COUNT,WBC 5.23 K/uL (3.9-11.3)
[2024-04-05 03:06] LABS: ESTIMATED GFR 83 mL/min (>60)
[2024-04-05] MEDS: Sodium Chloride 0.9% 10 ML Syringe FLUSH PRN (03:42)
[2024-04-05] MEDS: Sodium Chloride 0.9% 2.5 ML Syringe FLUSH PRN (03:42)
[2024-04-05] MEDS: Doxycycline 100 MG Cap PO ONE (04:29)
[2024-04-05 04:40] VITALS: BP 118/59; PULSE 118
== END 2024-04-05 04:39 | disposition home or self-care (01) ==
LOC: MW.ED 02:17
DX: J44.1 Chronic obstructive pulmonary disease with (acute) exacerbation (principal); E78.00 Pure hypercholesterolemia, unspecified; Z88.2 Allergy status to sulfonamides; Z79.899 Other long term (current) drug therapy; Z86.16 Personal history of COVID-19
CPT/HCPCS: 36415; 71045; 80048; 85025; 87428; 99285; A9270; J7620-GY

== ENCOUNTER 2024-04-11 13:05 | Inpatient (IN) | payer MEDICARE ==
[2024-04-11] MEDS: Sodium Chloride 0.9% 1,000 ML IV ONE (15:52)
[2024-04-11 16:07] LABS: BASOPHILS ABSOLUTE AUTO 0.01 K/uL (0.00-0.20); BASOPHILS PERCENT AUTO 0.2 % (0.0-1.0); EOSINOPHILS ABSOLUTE AUTO 0.02 K/uL (0.00-0.45); EOSINOPHILS PERCENT AUTO 0.3 % (0.0-6.0); HEMATOCRIT 38.6 % (37.0-47.0); HEMOGLOBIN 12.1 g/dL (12.0-16.0); IMMATURE GRAN ABSOLUTE AUTO 0.08 K/uL (0.00-0.05); IMMATURE GRAN PERCENT AUTO 1.2 % (0.0-0.4); LYMPHOCYTES ABSOLUTE AUTO 0.84 K/uL (1.00-4.80); LYMPHOCYTES PERCENT AUTO 12.6 % (24.0-44.0); MEAN CORPUSCULAR HGB CONC 31.3 g/dL (32.0-36.0); MEAN CORPUSCULAR VOLUME 102.1 fL (83.0-99.0); MEAN PLATELET VOLUME 10.4 fL (9.4-12.3); MONOCYTES ABSOLUTE AUTO 0.76 K/uL (0.00-0.80); MONOCYTES PERCENT AUTO 11.4 % (0.0-8.0); NEUTROPHILS ABSOLUTE AUTO 4.95 K/uL (1.80-7.70); NEUTROPHILS PERCENT AUTO 74.3 % (41.0-71.0); PLATELET COUNT,PLT 145 K/uL (150-400); RED BLOOD CELL COUNT 3.78 M/uL (4.10-5.30); WHITE BLOOD CELL COUNT,WBC 6.66 K/uL (3.9-11.3)
[2024-04-11 16:21] LABS: A/G RATIO 0.8 (0.9-1.6); ALBUMIN 2.6 g/dL (3.4-5.0); BILIRUBIN TOTAL 0.5 mg/dL (0.2-1.0); CALCIUM 8.6 mg/dL (8.5-10.1); CREATININE 0.9 mg/dL (0.6-1.0); EST CRCL DRUG DOSING (CG) 52.69 mL/min; MAGNESIUM 1.6 mg/dL (1.8-2.4); POTASSIUM,K 3.2 mmol/L (3.5-5.1)
[2024-04-11 16:23] LABS: CORONAVIRUS COVID-19 NAA NEGATIVE (NEGATIVE); INFLUENZA A NAA POSITIVE (NEGATIVE); INFLUENZA B NAA NEGATIVE (NEGATIVE); RESPIRATORY SYNCYTIAL VIR NAA NEGATIVE (NEGATIVE)
[2024-04-11 16:33] LABS: CARBON DIOXIDE,CO2 49.6 mmol/L (21.0-32.0)
[2024-04-11 16:47] LABS: LACTIC ACID 0.9 mmol/L (0.4-2.0)
[2024-04-11] MEDS: methylPREDNISolone Sodium Succinate 125 MG/2 ML SDV IVPUSH ONE (16:49)
[2024-04-11] MEDS: Albuterol/Ipratropium 3.0-0.5 MG/3 ML Neb Soln NEB ONE (16:55)
[2024-04-11] MEDS: Oseltamivir 75 MG Cap PO ONE (17:25)
[2024-04-11] MEDS: Magnesium Oxide 400 MG Tab PO ONE (17:25)
[2024-04-11] MEDS: Potassium Chloride 20 MEQ Tab.ER PO ONE (17:25)
[2024-04-11] MEDS ORDERED: Docusate Sodium 100 MG Cap PO PRN (20:14)
[2024-04-11] MEDS ORDERED: Acetaminophen 325 MG Tab PO PRN (20:14)
[2024-04-11] MEDS ORDERED: Ondansetron 4 MG Tab.DIS PO PRN (20:14)
[2024-04-11] MEDS ORDERED: Polyethylene Glycol 3350 Powder 17 GM Packet PO PRN (20:14)
[2024-04-11] MEDS ORDERED: Benzonatate 100 MG Cap PO PRN (20:17)
[2024-04-11] MEDS: Albuterol/Ipratropium 3.0-0.5 MG/3 ML Neb Soln NEB PRN (20:35)
[2024-04-11] MEDS: Sodium Chloride 0.9% 1,000 ML IV SCH (20:36)
[2024-04-11] MEDS: Ondansetron 4 MG/2 ML SDV IVPUSH SCH (20:38)
[2024-04-11] MEDS: Divalproex Sodium Delayed-Release 500 MG Tab.CR PO SCH (21:46)
[2024-04-11] MEDS: Enoxaparin 40 MG/0.4 ML Syringe SUBCUT SCH (21:47)
[2024-04-11 22:41] LABS: APPEARANCE,URINE CLEAR; BILIRUBIN,URINE NEGATIVE (NEGATIVE); COLOR,URINE YELLOW; GLUCOSE,URINE NEGATIVE (NEGATIVE); KETONES,URINE TRACE mg/dL (NEGATIVE); LEUKOCYTE ESTERASE,URINE NEGATIVE (NEGATIVE); NITRITE,URINE NEGATIVE (NEGATIVE); OCCULT BLOOD,URINE NEGATIVE (NEGATIVE); PROTEIN,URINE NEGATIVE (NEGATIVE); UROBILINOGEN,URINE 0.2 EU/dL (<2.0)
[2024-04-11] MEDS: cefTRIAXone 1 GM in Sodium Chloride 0.9% 50 ML IV SCH (23:18)
[2024-04-12 06:47] LABS: BASOPHILS ABSOLUTE AUTO 0.01 K/uL (0.00-0.20); BASOPHILS PERCENT AUTO 0.2 % (0.0-1.0); HEMATOCRIT 30.3 % (37.0-47.0); HEMOGLOBIN 9.8 g/dL (12.0-16.0); IMMATURE GRAN ABSOLUTE AUTO 0.03 K/uL (0.00-0.05); IMMATURE GRAN PERCENT AUTO 0.5 % (0.0-0.4); LYMPHOCYTES ABSOLUTE AUTO 0.46 K/uL (1.00-4.80); LYMPHOCYTES PERCENT AUTO 7.5 % (24.0-44.0); MEAN CORPUSCULAR HEMOGLOBIN 33.1 pg (28.0-32.0); MEAN CORPUSCULAR HGB CONC 32.3 g/dL (32.0-36.0); MEAN CORPUSCULAR VOLUME 102.4 fL (83.0-99.0); MEAN PLATELET VOLUME 10.4 fL (9.4-12.3); MONOCYTES ABSOLUTE AUTO 0.33 K/uL (0.00-0.80); MONOCYTES PERCENT AUTO 5.4 % (0.0-8.0); NEUTROPHILS ABSOLUTE AUTO 5.29 K/uL (1.80-7.70); NEUTROPHILS PERCENT AUTO 86.4 % (41.0-71.0); PLATELET COUNT,PLT 158 K/uL (150-400); RED BLOOD CELL COUNT 2.96 M/uL (4.10-5.30); WHITE BLOOD CELL COUNT,WBC 6.12 K/uL (3.9-11.3)
[2024-04-12 07:27] LABS: A/G RATIO 0.7 (0.9-1.6); BILIRUBIN TOTAL 0.2 mg/dL (0.2-1.0); CALCIUM 7.9 mg/dL (8.5-10.1); CARBON DIOXIDE,CO2 43.9 mmol/L (21.0-32.0); CREATININE 0.6 mg/dL (0.6-1.0); EST CRCL DRUG DOSING (CG) 85.6 mL/min; MAGNESIUM 1.4 mg/dL (1.8-2.4); PHOSPHORUS 3.2 mg/dL (2.6-4.7); POTASSIUM,K 4.5 mmol/L (3.5-5.1)
[2024-04-12] MEDS: methylPREDNISolone Sodium Succinate 40 MG/1 ML SDV IVPUSH SCH (08:43)
[2024-04-12] MEDS ORDERED: Magnesium Sulfate/Water 2 GM/50 ML Premix Bag IV ONE (08:45)
[2024-04-12] MEDS: Mometasone Furoate Powder 220 MCG/Puff 14 Dose Inhaler INH SCH (10:11)
[2024-04-12] MEDS: Oseltamivir 75 MG Cap PO SCH (10:32)
[2024-04-12] MEDS: Magnesium Sulf/Wat 2 GM/50 mL 2 GM in Premix Bag 1 BAG IV ONE (10:33)
[2024-04-12] MEDS: Tiotropium BR/Olodaterol HCL 4 GM Inhalation Spray 2.5mcg/1 dose; 10 doses INH SCH (10:38)
[2024-04-13 07:04] LABS: BASOPHILS ABSOLUTE AUTO 0.01 K/uL (0.00-0.20); BASOPHILS PERCENT AUTO 0.1 % (0.0-1.0); EOSINOPHILS ABSOLUTE AUTO 0.02 K/uL (0.00-0.45); EOSINOPHILS PERCENT AUTO 0.3 % (0.0-6.0); HEMATOCRIT 32.2 % (37.0-47.0); HEMOGLOBIN 10.1 g/dL (12.0-16.0); IMMATURE GRAN ABSOLUTE AUTO 0.03 K/uL (0.00-0.05); IMMATURE GRAN PERCENT AUTO 0.4 % (0.0-0.4); LYMPHOCYTES ABSOLUTE AUTO 1.06 K/uL (1.00-4.80); LYMPHOCYTES PERCENT AUTO 15.9 % (24.0-44.0); MEAN CORPUSCULAR HEMOGLOBIN 32.8 pg (28.0-32.0); MEAN CORPUSCULAR HGB CONC 31.4 g/dL (32.0-36.0); MEAN CORPUSCULAR VOLUME 104.5 fL (83.0-99.0); MEAN PLATELET VOLUME 10.3 fL (9.4-12.3); MONOCYTES PERCENT AUTO 10.5 % (0.0-8.0); NEUTROPHILS ABSOLUTE AUTO 4.85 K/uL (1.80-7.70); NEUTROPHILS PERCENT AUTO 72.8 % (41.0-71.0); PLATELET COUNT,PLT 148 K/uL (150-400); RED BLOOD CELL COUNT 3.08 M/uL (4.10-5.30); WHITE BLOOD CELL COUNT,WBC 6.67 K/uL (3.9-11.3)
[2024-04-13 07:40] LABS: A/G RATIO 0.7 (0.9-1.6); BILIRUBIN TOTAL 0.2 mg/dL (0.2-1.0); CALCIUM 8.7 mg/dL (8.5-10.1); CARBON DIOXIDE,CO2 44.4 mmol/L (21.0-32.0); CREATININE 0.5 mg/dL (0.6-1.0); EST CRCL DRUG DOSING (CG) 99.99 mL/min; MAGNESIUM 1.5 mg/dL (1.8-2.4); PHOSPHORUS 2.9 mg/dL (2.6-4.7); POTASSIUM,K 4.7 mmol/L (3.5-5.1); PROTEIN TOTAL,TP 4.8 g/dL (6.4-8.2)
[2024-04-13 08:08] VITALS: BP 115/56; PULSE 96
== END 2024-04-13 12:15 | disposition home or self-care (01) | DRG 193 ==
LOC: MW.ED 13:05 → MW.MS 18:25
PROVIDERS: ADMIT Internal Medicine; ATTEND Internal Medicine
DX: J10.1 Influenza due to other identified influenza virus with other respiratory manifestations (principal); R09.02 Hypoxemia; J96.21 Acute and chronic respiratory failure with hypoxia; J44.0 Chronic obstructive pulmonary disease with (acute) lower respiratory infection; J44.1 Chronic obstructive pulmonary disease with (acute) exacerbation; E83.42 Hypomagnesemia; Z75.8 Other problems related to medical facilities and other health care; F10.90 Alcohol use, unspecified, uncomplicated; F12.90 Cannabis use, unspecified, uncomplicated; E87.6 Hypokalemia; D69.6 Thrombocytopenia, unspecified; E78.00 Pure hypercholesterolemia, unspecified; I50.9 Heart failure, unspecified; Z53.9 Procedure and treatment not carried out, unspecified reason; M19.90 Unspecified osteoarthritis, unspecified site; Z87.81 Personal history of (healed) traumatic fracture; Z90.49 Acquired absence of other specified parts of digestive tract; Z88.2 Allergy status to sulfonamides; Z79.899 Other long term (current) drug therapy; Z98.890 Other specified postprocedural states; Z87.891 Personal history of nicotine dependence; Z79.51 Long term (current) use of inhaled steroids
CPT/HCPCS: 0241U; 36415; 71045; 80053; 81003; 83605; 83690; 83735; 84100; 85025; 94640; A9270-GY; J0696; J1650; J2405; J2919; J3475; J3490; J7030; J7620-GY